=== PATIENT | female | born 1945 | race American Indian/Alaskan Native ===

== ENCOUNTER 2016-09-24 14:27 | Emergency (ER) | payer MEDICARE ==
--- NOTE | 2016-09-24 15:32 | Emergency Department Report ---
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 Patient stated history of seizure for which she takes Dilantin and Keppra. She started having seizures in 1997 after having meningiomas removed. Patient states she has been compliant with her medication but she usually has one seizure every 3 months or so. Patient denies any pain, shortness of breath, nausea, vomiting, fever, neck pain. Patient states her seizure lasted about 30 seconds, and only involved her right side according to witnesses. No loss of bowel or urine during this seizure. <PATRICIA YOUSSEF - Last Filed: 09/24/16 16:13> <PABLO CASTRO - Last Filed: 09/24/16 21:03> - General Chief Complaint: Seizure Time Seen by Provider: 09/24/16 15:22 ED Past Medical Hx - Past Medical History Hx Hypertension: Yes Hx Heart Attack/AMI: No Hx Congestive Heart Failure: Yes Hx Diabetes: No Hx Deep Vein Thrombosis: No Hx Pulmonary Embolism: Yes (2011) Hx Sickle Cell Disease: No Hx Arthritis: Yes Hx Seizures: Yes Hx Asthma: No Hx COPD: Yes (Home O2) Hx Tuberculosis: No Hx Dementia: No Hx HIV: No Additional medical history: Beneign Brain Tumor - Surgical History Hx Coronary Stent: Yes Hx Open Heart Surgery: No Hx Pacemaker: No Hx Internal Defibrillator: No Hx Cholecystectomy: Yes Hx Appendectomy: No Hx Breast Surgery: No Additional Surgical History: Brain Surgery x 2, Hysterectomy, Gallbadder, Hernia , Bowl Obstruction x 3, Back surgery. right hip surgery - Family History Family history: hypertension - Social History Smoking Status: Former Smoker Substance Use Type: None <PATRICIA YOUSSEF - Last Filed: 09/24/16 16:13> <PABLO CASTRO - Last Filed: 09/24/16 21:03> - Medications Home Medications: Home Medications Medication Instructions Recorded Confirmed Last Taken Type levETIRAcetam 750 mg PO BID 05/25/14 09/24/16 09/24/16 History Escitalopram [Lexapro] 20 mg PO DAILY tablet 05/27/14 09/24/16 09/24/16 Rx Fluticasone [Flonase] 2 spray NS QDAY 08/12/14 09/24/16 05/13/16 History Pantoprazole [Protonix TAB] 40 mg PO QDAY 08/12/14 09/24/16 09/24/16 History Rosuvastatin (Nf) [Crestor] 20 mg PO QHS 08/12/14 09/24/16 09/24/16 History Phenytoin [Dilantin] 300 mg PO QHS 09/08/14 09/24/16 09/23/16 History Amlodipine Besylate [Norvasc] 10 mg PO DAILY 30 Days 11/19/14 09/24/16 09/24/16 Rx Carvedilol [Coreg] 12.5 mg PO BID #60 tablet 11/19/14 09/24/16 09/24/16 Rx Clopidogrel [Plavix] 75 mg PO QDAY #30 tablet 11/19/14 09/24/16 09/24/16 Rx ISOSORBIDE MONOnitrate [Imdur ER] 30 mg PO QDAY #30 tablet 11/19/14 09/24/16 Rx Lisinopril [Zestril TAB] 40 mg PO DAILY #30 tablet 11/19/14 09/24/16 09/24/16 Rx Ranolazine ER [Ranexa ER] 1,000 mg PO BID 60 Days 11/19/14 09/24/16 09/24/16 Rx Acetaminophen [Acetaminophen TAB] 650 mg PO Q4H PRN #30 tablet 09/08/1505/11/16 Rx Aspirin [Aspirin BABY CHEW TAB] 81 mg PO QDAY #30 tab.chew 05/17/16 09/24/16 Rx ALBUTEROL Inhaler [Proair] 2 puff IH QID PRN 09/24/16 09/24/16 Unknown History Budesoni/Formotero 160-4.5(Nf) 2 puff IH BID 09/24/16 09/24/16 Unknown History [Symbicort 160-4.5 (Nf)] Nitroglycerin [Nitrostat] 0.4 mg SL Q5M 09/24/16 09/24/16 Unknown History ED Review of Systems ROS: Stated complaint: SEIZURE Other details as noted in HPI Comment: All other systems reviewed and negative Constitutional: no symptoms reported Neurological: other (seizures) <PATRICIA YOUSSEF - Last Filed: 09/24/16 16:13> ROS: Stated complaint: SEIZURE Other details as noted in HPI <PABLO CASTRO P - Last Filed: 09/24/16 21:03> Physical Exam - Physical Exam Vital Signs: Vital Signs 09/24/16 14:44 Pulse Rate 86 Respiratory 16 Rate Blood Pressure 164/96 O2 Sat by Pulse 99 Oximetry Physical Exam: Gen. alert and oriented 3 in no distress Head atraumatic normocephalic Eyes PERR LA EOMI Chest regular rate and rhythm normal S1-S2 lungs clear bilaterally Abdomen soft nondistended Back no point tenderness paravertebral tenderness Neuro no focal deficit. Psych normal mood. <PATRICIA YOUSSEF - Last Filed: 09/24/16 16:13> - Physical Exam Vital Signs: Vital Signs 09/24/16 09/24/16 09/24/16 14:44 15:20 15:33 Temperature 97.7 F Pulse Rate 86 65 Respiratory 16 15 Rate Blood Pressure 164/96 Blood Pressure 156/76 [Left] O2 Sat by Pulse 99 100 100 Oximetry <PABLO CASTRO P - Last Filed: 09/24/16 21:03> ED Course Vital Signs 09/24/16 14:44 Pulse Rate 86 Respiratory 16 Rate Blood Pressure 164/96 O2 Sat by Pulse 99 Oximetry <PATRICIA YOUSSEF - Last Filed: 09/24/16 16:13> Vital Signs 09/24/16 09/24/16 09/24/16 14:44 15:20 15:33 Temperature 97.7 F Pulse Rate 86 65 Respiratory 16 15 Rate Blood Pressure 164/96 Blood Pressure 156/76 [Left] O2 Sat by Pulse 99 100 100 Oximetry <PABLO CASTRO P - Last Filed: 09/24/16 21:03> ED Medical Decision Making - Lab Data Result diagrams: 09/24/16 15:42 <PATRICIA YOUSSEF - Last Filed: 09/24/16 16:13> - Lab Data Result diagrams: 09/24/16 15:42 09/24/16 15:42 <PABLO CASTRO P - Last Filed: 09/24/16 21:03> Critical care attestation.: If time is entered above; I have spent that time in minutes in the direct care of this critically ill patient, excluding procedure time. <PATRICIA YOUSSEF - Last Filed: 09/24/16 16:13> Critical care attestation.: If time is entered above; I have spent that time in minutes in the direct care of this critically ill patient, excluding procedure time. <PABLO CASTRO - Last Filed: 09/24/16 21:03> ED Disposition <PATRICIA YOUSSEF - Last Filed: 09/24/16 16:13> Is pt being admited?: No Does the pt Need Aspirin: No Time of Disposition: 21:03 <PABLO CASTRO P - Last Filed: 09/24/16 21:03> Clinical Impression: Seizure Disposition: - TO HOME OR SELFCARE Condition: Stable Instructions: Epilepsy (ED) Referrals: PRIMARY CARE,MD [Primary Care Provider] - 3-5 Days
[2016-09-24] MEDS: NACL 0.9% 1000 ML 1,000 ML IV ONE (16:00)
[2016-09-24 16:12] LABS: Basophils % (Auto) 0.7 % (0.0-1.8); Eosinophils % (Auto) 2.5 % (0.0-4.3); Hematocrit 34.6 % (30.3-42.9); Hemoglobin 11.6 gm/dl (10.1-14.3); Mean Corpuscular HGB Conc 34 % (30-34); Mean Corpuscular Hemoglobin 31 pg (28-32); Mean Corpuscular Volume 94 fl (79-97); Platelet Count 287 K/mm3 (140-440); Red Blood Count 3.69 M/mm3 (3.65-5.03); White Blood Count 5.4 K/mm3 (4.5-11.0)
[2016-09-24 16:55] LABS: Bilirubin,Urine NEG (Negative); Blood,Urine SM (Negative); Ketones,Urine NEG (Negative); Leukocyte Esterase,Urine TR (Negative); Mucus,Urine FEW /HPF; Nitrite,Urine NEG (Negative); Protein,Urine <15 mg/dL mg/dL (Negative); Urobilinogen,Urine < 2.0 mg/dL (<2.0); WBC,Urine < 1.0 /HPF (0.0-6.0)
[2016-09-24] MEDS: KEPPRA 500 MG in D5W 100 ML IV ONE (17:45)
[2016-09-24 18:50] LABS: Alanine Aminotransferase 19 units/L (7-56); Albumin 3.9 g/dL (3.9-5); Albumin/Globulin Ratio 1.5 %; Alkaline Phosphatase 92 units/L (35-129); Anion Gap 17 mmol/L; Blood Urea Nitrogen 9 mg/dL (7-17); Calcium 9.5 mg/dL (8.4-10.2); Carbon Dioxide 31 mmol/L (22-30); Glucose 85 mg/dL (65-100); Potassium 4.2 mmol/L (3.6-5.0); Sodium 140 mmol/L (137-145); Total Protein 6.5 g/dL (6.3-8.2)
[2016-09-24 21:25] VITALS: BP 122/71
== END 2016-09-24 21:00 | disposition home or self-care (01) ==
LOC: ED 14:27
DX: R56.9 Unspecified convulsions (principal); I10 Essential (primary) hypertension; J44.9 Chronic obstructive pulmonary disease, unspecified; Z87.891 Personal history of nicotine dependence
CPT/HCPCS: 36415; 80053; 80185; 81001; 85025; 96361; 96365; 99284; J1953; J7030

== ENCOUNTER 2016-09-24 21:29 | Inpatient (IN) | payer MEDICARE ==
[2016-09-24] MEDS ORDERED: NITROSTAT SL ONE (21:46)
[2016-09-24] MEDS ORDERED: SUBLIMAZE IV ONE (21:46)
[2016-09-24] MEDS ORDERED: ZOFRAN ONE (22:02)
[2016-09-24 22:34] LABS: White Blood Count 6.3 K/mm3 (4.5-11.0)
[2016-09-24 22:35] LABS: Basophils % (Auto) 0.7 % (0.0-1.8); Eosinophils % (Auto) 2.5 % (0.0-4.3); Hematocrit 35.3 % (30.3-42.9); Hemoglobin 11.5 gm/dl (10.1-14.3); Mean Corpuscular HGB Conc 33 % (30-34); Mean Corpuscular Hemoglobin 31 pg (28-32); Mean Corpuscular Volume 94 fl (79-97); Platelet Count 304 K/mm3 (140-440); Red Blood Count 3.75 M/mm3 (3.65-5.03); Red Cell Distribution Width 14.1 % (13.2-15.2)
--- NOTE | 2016-09-24 22:43 | Emergency Department Report ---
HPI - General Chief Complaint: Chest Pain Time Seen by Provider: 09/24/16 21:44 - HPI HPI: The patient is a 71-year-old female who presents for evaluation of chest pain. The patient reports chest pain for the past 30 minutes to 1 hour, since discharge from evaluation earlier today for seizure. She states that her chest has been constant since onset, left-sided in location, pressure-like and tightness in quality, 7/10 in severity. She also reports associated dyspnea. She denies fever, shortness of the chest, cough, hemoptysis, unilateral leg swelling, recent immobilization, history of DVT or PE, recent cancer. ED Past Medical Hx - Past Medical History Previous Medical History?: Yes Hx Hypertension: Yes Hx Heart Attack/AMI: No Hx Congestive Heart Failure: Yes Hx Diabetes: No Hx Deep Vein Thrombosis: No Hx Pulmonary Embolism: Yes (2011) Hx Sickle Cell Disease: No Hx Arthritis: Yes Hx Seizures: Yes Hx Asthma: No Hx COPD: Yes (Home O2) Hx Tuberculosis: No Hx Dementia: No Hx HIV: No Additional medical history: Beneign Brain Tumor - Surgical History Past Surgical History?: Yes Hx Coronary Stent: Yes Hx Open Heart Surgery: No Hx Pacemaker: No Hx Internal Defibrillator: No Hx Cholecystectomy: Yes Hx Appendectomy: No Hx Breast Surgery: No Additional Surgical History: Brain Surgery x 2, Hysterectomy, Gallbadder, Hernia , Bowl Obstruction x 3, Back surgery. right hip surgery - Social History Smoking Status: Never Smoker Substance Use Type: None - Medications Home Medications: Home Medications Medication Instructions Recorded Confirmed Last Taken Type levETIRAcetam 750 mg PO BID 05/25/14 09/24/16 09/24/16 History Escitalopram [Lexapro] 20 mg PO DAILY tablet 05/27/14 09/24/16 09/24/16 Rx Fluticasone [Flonase] 2 spray NS QDAY 08/12/14 09/24/16 05/13/16 History Pantoprazole [Protonix TAB] 40 mg PO QDAY 08/12/14 09/24/16 09/24/16 History Rosuvastatin (Nf) [Crestor] 20 mg PO QHS 08/12/14 09/24/16 09/24/16 History Phenytoin [Dilantin] 300 mg PO QHS 09/08/14 09/24/16 09/23/16 History Amlodipine Besylate [Norvasc] 10 mg PO DAILY 30 Days 11/19/14 09/24/16 09/24/16 Rx Carvedilol [Coreg] 12.5 mg PO BID #60 tablet 11/19/14 09/24/16 09/24/16 Rx Clopidogrel [Plavix] 75 mg PO QDAY #30 tablet 11/19/14 09/24/16 09/24/16 Rx ISOSORBIDE MONOnitrate [Imdur ER] 30 mg PO QDAY #30 tablet 11/19/14 09/24/16 Rx Lisinopril [Zestril TAB] 40 mg PO DAILY #30 tablet 11/19/14 09/24/16 09/24/16 Rx Ranolazine ER [Ranexa ER] 1,000 mg PO BID 60 Days 11/19/14 09/24/16 09/24/16 Rx Acetaminophen [Acetaminophen TAB] 650 mg PO Q4H PRN #30 tablet 09/08/1505/11/16 Rx Aspirin [Aspirin BABY CHEW TAB] 81 mg PO QDAY #30 tab.chew 05/17/16 09/24/16 Rx ALBUTEROL Inhaler [Proair] 2 puff IH QID PRN 09/24/16 09/24/16 Unknown History Budesoni/Formotero 160-4.5(Nf) 2 puff IH BID 09/24/16 09/24/16 Unknown History [Symbicort 160-4.5 (Nf)] Nitroglycerin [Nitrostat] 0.4 mg SL Q5M 09/24/16 09/24/16 Unknown History ED Review of Systems ROS: Stated complaint: CP Other details as noted in HPI Constitutional: denies: fever ENT: denies: throat or neck pain Respiratory: denies: cough, shortness of breath Cardiovascular: reports chest pain Endocrine: denies unexplained weight loss or gain Gastrointestinal: denies: abdominal pain, nausea Genitourinary: denies: dysuria Musculoskeletal: denies: leg swelling Skin: denies: rash Neurological: denies: headache Hematological/Lymphatic: denies: easy bleeding or easy bruising Psych: denies sadness or hopelessness Physical Exam - Physical Exam Vital Signs: Vital Signs 09/24/16 21:30 Temperature 98.6 F Pulse Rate 84 Respiratory 20 Rate Blood Pressure 191/89 O2 Sat by Pulse 100 Oximetry Physical Exam: General: well-nourished, well-developed, no acute distress Head: Normocephalic, atraumatic Eyes: normal sclera ENT: Mucous membranes are pink and moist Neck: trachea midline, neck supple, No neck stiffness, no cervical adenopathy Respiratory: Breath sounds equal bilaterally, no wheezing, rales, or rhonchi Cardio: S1 and S2 present, no murmurs, rubs, gallops, capillary refill is brisk Abdomen: Normoactive bowel sounds, soft abdomen, no rigidity, no guarding or rebound tenderness Chest WALL/Back: left sided tenderness to palpation of the chest wall present, no CVA tenderness with percussion Musc: No pitting edema Skin: No rash Neuro: no facial drooping, normal speech Psych: Normal affect ED Course Vital Signs 09/24/16 21:30 Temperature 98.6 F Pulse Rate 84 Respiratory 20 Rate Blood Pressure 191/89 O2 Sat by Pulse 100 Oximetry ED Medical Decision Making - Lab Data Result diagrams: 09/24/16 22:12 09/24/16 22:12 - Medical Decision Making The patient was seen and examined by myself. The patient is placed on a supervisor customer records division and continuous pulse ox. On initial evaluation, the patient was found to be in no distress. The patient is given a nitroglycerin tablet and IV fentanyl for pain. Labs and imaging are obtained. Chest x-ray is negative for pneumothorax, focal consolidation, pulmonary vascular congestion, pleural effusion, or other obvious acute cardiopulmonary disease process. Lab results were non-revealing including negative troponin, WBC, hemoglobin, hematocrit, electrolytes, renal function. The patient was reevaluated and reported that their symptoms were improved. As the patient has chest pain and risk factors for development of acute coronary event, the patient will be admitted for close cardiopulmonary monitoring, serial troponins, and evaluation by cardiology. The physician on-call was contacted. They presented to the emergency department and evaluated the patient. They agreed to admit the patient. The ED admit order was placed. The patient was admitted in guarded condition. Critical care attestation.: If time is entered above; I have spent that time in minutes in the direct care of this critically ill patient, excluding procedure time. ED Disposition Clinical Impression: Acute chest pain Disposition: [id number] OP ADMIT IP TO THIS HOSP Is pt being admited?: No Does the pt Need Aspirin: No Condition: Stable Time of Disposition: 22:42
[2016-09-24] MEDS ORDERED: BENADRYL ONE (22:48)
[2016-09-24 22:54] LABS: Alanine Aminotransferase 19 units/L (7-56); Albumin/Globulin Ratio 1.7 %; Alkaline Phosphatase 93 units/L (35-129); Anion Gap 18 mmol/L; Blood Urea Nitrogen 7 mg/dL (7-17); Calcium 9.3 mg/dL (8.4-10.2); Carbon Dioxide 29 mmol/L (22-30); Chloride 98.2 mmol/L (98-107); Glucose 109 mg/dL (65-100); Lipase 17 units/L (13-60); Sodium 141 mmol/L (137-145); Total Protein 6.4 g/dL (6.3-8.2)
[2016-09-24] MEDS ORDERED: BENADRYL IV ONE (22:59)
--- NOTE | 2016-09-24 23:34 | History and Physical Report ---
History of Present Illness Chief complaint: I had a seizure and i have pain in my chest History of present illness: 71 YO Female with HTN, CHF, PE, OA, COPD-oxygen Dependent, Seizure disorder, CAD presents to ED for evaluation. Pt states that she experienced witnissed seizure today, and also experienced pain in her chest today. Pt states that the pain is 4-7/10, constant, localized to the left-side of the chest, crushing in nature, associated with dyspnea, no exacerbating or alleviating factors. Pt denies fever, chills, Palpitations, NVD, Syncope, hemoptysis, or recent ill contacts. Past History Past Medical History: arthritis, CAD, COPD, heart failure, hypertension, pulmonary embolism, seizures Past Surgical History: cholecystectomy, hysterectomy ( Brain Surgery x 2, Hysterectomy, Gallbadder, Hernia, Bowl Obstruction x 3, Back surgery. right hip surgery) Social history: single. denies: smoking, alcohol abuse, prescription drug abuse Family history: diabetes, hypertension Medications and Allergies Allergies Allergy/AdvReac Type Severity Reaction Status Date / Time morphine Allergy Severe hallucinati Verified 01/06/15 13:14 on Home Medications Medication Instructions Recorded Confirmed Last Taken Type levETIRAcetam 750 mg PO BID 05/25/14 09/25/16 09/24/16 History Escitalopram [Lexapro] 20 mg PO DAILY tablet 05/27/14 09/25/16 09/24/16 Rx Fluticasone [Flonase] 2 spray NS QDAY 08/12/14 09/25/16 05/13/16 History Pantoprazole [Protonix TAB] 40 mg PO QDAY 08/12/14 09/25/16 09/24/16 History Rosuvastatin (Nf) [Crestor] 20 mg PO QHS 08/12/14 09/25/16 09/24/16 History Phenytoin [Dilantin] 300 mg PO QHS 09/08/14 09/25/16 09/23/16 History Amlodipine Besylate [Norvasc] 10 mg PO DAILY 30 Days 11/19/14 09/25/16 09/24/16 Rx Carvedilol [Coreg] 12.5 mg PO BID #60 tablet 11/19/14 09/25/16 09/24/16 Rx Clopidogrel [Plavix] 75 mg PO QDAY #30 tablet 11/19/14 09/25/16 09/24/16 Rx ISOSORBIDE MONOnitrate [Imdur ER] 30 mg PO QDAY #30 tablet 11/19/14 09/25/16 Rx Lisinopril [Zestril TAB] 40 mg PO DAILY #30 tablet 11/19/14 09/25/16 09/24/16 Rx Acetaminophen [Acetaminophen TAB] 650 mg PO Q4H PRN #30 tablet 09/08/1505/11/16 Rx Aspirin [Aspirin BABY CHEW TAB] 81 mg PO QDAY #30 tab.chew 05/17/16 09/25/16 Rx ALBUTEROL Inhaler [Proair] 2 puff IH QID PRN 09/24/16 09/25/16 Unknown History Budesoni/Formotero 160-4.5(Nf) 2 puff IH BID 09/24/16 09/25/16 Unknown History [Symbicort 160-4.5 (Nf)] Nitroglycerin [Nitrostat] 0.4 mg SL Q5M 09/24/16 09/25/16 Unknown History Review of Systems All systems: negative Constitutional: no fever Ears, nose, mouth and throat: no ear pain Breasts: no swelling Cardiovascular: chest pain, shortness of breath Respiratory: no cough Gastrointestinal: no abdominal pain Genitourinary Female: no flank pain Rectal: no pain Musculoskeletal: no neck stiffness Integumentary: no rash Neurological: no head injury Psychiatric: no anxiety Endocrine: no heat intolerance Hematologic/Lymphatic: no easy bruising Allergic/Immunologic: no urticaria Exam - Constitutional Vitals: Temp Pulse Resp BP Pulse Ox 98.6 F 84 20 191/89 100 09/24/16 21:30 09/24/16 21:30 09/24/16 21:30 09/24/16 21:30 09/24/16 21:30 General appearance: Present: mild distress, obese - EENT Eyes: Present: PERRL ENT: hearing intact, clear oral mucosa - Neck Neck: Present: supple, normal ROM - Respiratory Respiratory effort: normal Respiratory: bilateral: diminished - Cardiovascular Heart Sounds: Present: S1 & S2. Absent: rub, click - Extremities Extremities: pulses symmetrical, No edema Peripheral Pulses: within normal limits - Abdominal General gastrointestinal: Present: soft, non-tender, non-distended, normal bowel sounds Female genitourinary: Present: normal - Integumentary Integumentary: Present: clear, warm, dry - Musculoskeletal Musculoskeletal: gait normal, strength equal bilaterally - Psychiatric Psychiatric: appropriate mood/affect, intact judgment & insight - Neurologic Neurologic: CNII-XII intact, moves all extremities Results - Labs CBC & Chem 7: 09/24/16 22:12 09/24/16 22:12 Labs: Abnormal lab results 09/24/16 09/24/16 Range/Units 22:12 22:12 Lymph % (Auto) 40.4 H (13.4-35.0) % Meagher % (Auto) 8.5 H (0.0-7.3) % Creatinine 0.5 L (0.7-1.2) mg/dL Glucose 109 H (65-100) mg/dL Assessment and Plan - Patient Problems (1) ACS (acute coronary syndrome) Current Visit: Yes Status: Acute Plan to address problem: Admit to telemetry, cardiology consulted, serial cardiac enzymes, ekg, telemetry , supportive care, Echo (2) Status epilepticus Current Visit: Yes Status: Acute Plan to address problem: dilantin level, keppra level, resume home medication (3) CHF (congestive heart failure) Current Visit: Yes Status: Acute Qualifiers: Congestive heart failure type: systolic Congestive heart failure chronicity : acute on chronic Qualified Code(s): I50.23 - Acute on chronic systolic ( congestive) heart failure Plan to address problem: Telemetry monitoring, fluid restriction, afterload reduction, monitor uop q shift, (4) COPD (chronic obstructive pulmonary disease) Current Visit: Yes Status: Chronic Qualifiers: COPD type: C Chronic bronchitis type: C Emphysema type: E Plan to address problem: supplemental oxygen, nebs, NIPPV as clinically indicated. (5) DVT prophylaxis Current Visit: Yes Status: Acute
[2016-09-24] MEDS ORDERED: NITROSTAT SL PRN (23:45)
[2016-09-24] MEDS ORDERED: SODIUM CHLORIDE FLUSH SYRINGE 10 ML IV PRN (23:47)
[2016-09-24] MEDS ORDERED: MILK OF MAGNESIA PO PRN (23:47)
[2016-09-24] MEDS ORDERED: DULCOLAX PR PRN (23:47)
[2016-09-24] MEDS ORDERED: TYLENOL PO PRN ×2 (23:47→23:52)
[2016-09-24] MEDS ORDERED: PROVENTIL IH PRN (23:47)
[2016-09-24] MEDS ORDERED: PROAIR IH PRN (23:52)
--- NOTE | 2016-09-25 07:13 | XRay Report ---
AP CHEST: HISTORY: Seizure There is poor inspiration. AP view of the chest demonstrates a normal mediastinal and cardiac contour with clear lungs and normal bony and soft tissue structures. IMPRESSION: No acute process identified.
[2016-09-25] MEDS: ZOFRAN IV PRN ×2 (07:49→21:48)
[2016-09-25] MEDS: BROVANA NEBU IH SCH ×2 (08:33→20:12)
[2016-09-25] MEDS: PULMICORT IH SCH ×2 (08:33→20:12)
[2016-09-25] MEDS: FLONASE NS SCH (09:09)
[2016-09-25] MEDS: BABY ASPIRIN PO SCH (09:44)
[2016-09-25] MEDS: IMDUR PO SCH (09:45)
[2016-09-25] MEDS: LEXAPRO PO SCH (09:46)
[2016-09-25] MEDS: KEPPRA PO SCH ×2 (09:46→21:52)
[2016-09-25] MEDS: NORVASC PO SCH (09:47)
[2016-09-25] MEDS: PROTONIX PO SCH (09:47)
[2016-09-25] MEDS: ZESTRIL PO SCH (09:48)
[2016-09-25] MEDS: RANEXA ER PO SCH ×2 (09:48→21:52)
[2016-09-25] MEDS: PLAVIX PO SCH (09:48)
[2016-09-25] MEDS ORDERED: COREG PO SCH (10:00)
[2016-09-25] MEDS ORDERED: NON-FORMULARY (Budesoni/Formotero 160-4.5(Nf) 2 PUFF) IH SCH (10:00)
[2016-09-25] MEDS ORDERED: APRESOLINE IV PRN (10:30)
--- NOTE | 2016-09-25 13:33 | Consultation ---
History of Present Illness Consult date: 09/25/16 Past History Past Medical History: arthritis, CAD, COPD, heart failure, hypertension, pulmonary embolism, seizures Past Surgical History: cholecystectomy, hysterectomy ( Brain Surgery x 2, Hysterectomy, Gallbadder, Hernia, Bowl Obstruction x 3, Back surgery. right hip surgery) Social history: single. denies: smoking, alcohol abuse, prescription drug abuse Family history: diabetes, hypertension Medications and Allergies Allergies Allergy/AdvReac Type Severity Reaction Status Date / Time morphine Allergy Severe hallucinati Verified 01/06/15 13:14 on Home Medications Medication Instructions Recorded Confirmed Last Taken Type levETIRAcetam 750 mg PO BID 05/25/14 09/25/16 09/24/16 History Escitalopram [Lexapro] 20 mg PO DAILY tablet 05/27/14 09/25/16 09/24/16 Rx Fluticasone [Flonase] 2 spray NS QDAY 08/12/14 09/25/16 05/13/16 History Pantoprazole [Protonix TAB] 40 mg PO QDAY 08/12/14 09/25/16 09/24/16 History Rosuvastatin (Nf) [Crestor] 20 mg PO QHS 08/12/14 09/25/16 09/24/16 History Phenytoin [Dilantin] 300 mg PO QHS 09/08/14 09/25/16 09/23/16 History Amlodipine Besylate [Norvasc] 10 mg PO DAILY 30 Days 11/19/14 09/25/16 09/24/16 Rx Carvedilol [Coreg] 12.5 mg PO BID #60 tablet 11/19/14 09/25/16 09/24/16 Rx Clopidogrel [Plavix] 75 mg PO QDAY #30 tablet 11/19/14 09/25/16 09/24/16 Rx ISOSORBIDE MONOnitrate [Imdur ER] 30 mg PO QDAY #30 tablet 11/19/14 09/25/16 Rx Lisinopril [Zestril TAB] 40 mg PO DAILY #30 tablet 11/19/14 09/25/16 09/24/16 Rx Acetaminophen [Acetaminophen TAB] 650 mg PO Q4H PRN #30 tablet 09/08/1505/11/16 Rx Aspirin [Aspirin BABY CHEW TAB] 81 mg PO QDAY #30 tab.chew 05/17/16 09/25/16 Rx ALBUTEROL Inhaler [Proair] 2 puff IH QID PRN 09/24/16 09/25/16 Unknown History Budesoni/Formotero 160-4.5(Nf) 2 puff IH BID 09/24/16 09/25/16 Unknown History [Symbicort 160-4.5 (Nf)] Nitroglycerin [Nitrostat] 0.4 mg SL Q5M 09/24/16 09/25/16 Unknown History Active Meds: Active Medications Acetaminophen (Tylenol) 650 mg PO Q4H PRN PRN Reason: Pain MILD(1-3)/Fever >100.5/FERRER Albuterol (Proventil) 2.5 mg IH Q4HRT PRN PRN Reason: Shortness Of Breath Amlodipine Besylate (Norvasc) 10 mg PO DAILY [facility] Last Admin: 09/25/16 09:47 Dose: 10 mg Arformoterol Tartrate (Brovana Nebu) 15 mcg IH Q12HRT [facility] Last Admin: 09/25/16 08:33 Dose: 15 mcg Aspirin (Baby Aspirin) 81 mg PO QDAY [facility] Last Admin: 09/25/16 09:44 Dose: 81 mg Atorvastatin Calcium (Lipitor) 40 mg PO QHS [facility] Bisacodyl (Dulcolax) 10 mg MS QDAY PRN PRN Reason: Constipation unrelieved by MOM Budesonide (Pulmicort) 0.5 mg IH Q12HRT [facility] Last Admin: 09/25/16 08:33 Dose: 0.5 mg Carvedilol (Coreg) 12.5 mg PO BID [facility] Last Admin: 09/25/16 09:45 Dose: 12.5 mg Clopidogrel Bisulfate (Plavix) 75 mg PO QDAY [facility] Last Admin: 09/25/16 09:48 Dose: Not Given Escitalopram Oxalate (Lexapro) 20 mg PO DAILY [facility] Last Admin: 09/25/16 09:46 Dose: 20 mg Fluticasone Propionate (Flonase) 100 mcg NS QDAY [facility] Hydralazine HCl (Apresoline) 25 mg PO Q8HR [facility] Hydralazine HCl (Apresoline) 10 mg IV Q4H PRN PRN Reason: Hypertension Isosorbide Mononitrate (Imdur) 30 mg PO QDAY [facility] Last Admin: 09/25/16 09:45 Dose: 30 mg Levetiracetam (Keppra) 750 mg PO BID [facility] Last Admin: 09/25/16 09:46 Dose: 750 mg Lisinopril (Zestril) 40 mg PO DAILY [facility] Last Admin: 09/25/16 09:48 Dose: 40 mg Magnesium Hydroxide (Milk Of Magnesia) 30 ml PO Q4H PRN PRN Reason: Constipation Nitroglycerin (Nitrostat) 0.4 mg SL Q5M PRN PRN Reason: Chest Pain Last Admin: 09/25/16 07:46 Dose: 0.4 mg Ondansetron HCl (Zofran) 4 mg IV Q8H PRN PRN Reason: N/V unrelieved by [facility] Last Admin: 09/25/16 07:49 Dose: 4 mg Pantoprazole Sodium (Protonix) 40 mg PO QDAY [facility] Last Admin: 09/25/16 09:47 Dose: 40 mg Phenytoin (Dilantin) 300 mg PO QHS [facility] Ranolazine (Ranexa Er) 1,000 mg PO BID [facility] Last Admin: 09/25/16 09:48 Dose: 1,000 mg Sodium Chloride (Sodium Chloride Flush Syringe 10 Ml) 10 ml IV PRN PRN PRN Reason: LINE FLUSH Physical Examination Vital Signs Pulse Ox 92 09/24/16 21:28 Results 09/24/16 22:12 09/24/16 22:12 Assessment and Plan Detailed Cardiology consult dictaed.
[2016-09-25] MEDS: APRESOLINE PO SCH ×2 (14:39→21:51)
--- NOTE | 2016-09-25 16:49 | Progress Note ---
Assessment and Plan Assessment and plan: --atypical chest pain; rule out acute coronary syndrome Serial cardiac enzymes, echocardiogram, follow cardiology evaluation and recommendations Aspirin beta blockers derrick inhibitors and nitrates and statins, possible stress test to rule out reversible ischemia --History of seizure disorder Probably secondary to noncompliance, continue seizure precautions, Dilantin and Keppra --Acute on chronic systolic Congestive heart failure Continue anti-failure medications, cardiology following Low salt diet and fluid restriction, ejection fraction 35-40% --History of COPD;; Oxygen, nebulizers as needed, BiPAP as needed --History of depression; continue antidepression medications --Dyslipidemia; stable on lipid-lowering medications --DVT prophylaxis; Lovenox --Full CODE STATUS Closely monitor the patient and adjust management as needed Possible discharge in 1-2 days if stable History Interval history: Patient seen and evaluated medical records reviewed Denies any chest pain or shortness No new episodes of seizures since admission Alert awake oriented 3 not in acute distress vital signs reviewed Cardiology evaluation pending Hospitalist Physical - Constitutional Vitals: Temp Pulse Resp BP Pulse Ox 98.8 F 73 20 152/72 97 09/25/16 15:13 09/25/16 15:13 09/25/16 15:13 09/25/16 15:13 09/25/16 15:13 General appearance: Present: no acute distress, obese - EENT Eyes: Present: PERRL, EOM intact - Neck Neck: Present: supple, normal ROM - Respiratory Respiratory effort: normal Respiratory: bilateral: diminished, negative: rales, rhonchi, wheezing - Cardiovascular Rhythm: regular Heart Sounds: Present: S1 & S2 - Extremities Extremities: no ischemia, pulses intact, pulses symmetrical - Abdominal General gastrointestinal: soft, non-tender, non-distended, normal bowel sounds - Integumentary Integumentary: Present: clear, warm - Psychiatric Psychiatric: appropriate mood/affect, cooperative - Neurologic Neurologic: CNII-XII intact, moves all extremities Results - Labs CBC & Chem 7: 09/24/16 22:12 09/24/16 22:12 Labs: Laboratory Last Values WBC 6.3 K/mm3 (4.5-11.0) 09/24/16 22:12 RBC 3.75 M/mm3 (3.65-5.03) 09/24/16 22:12 Hgb 11.5 gm/dl (10.1-14.3) 09/24/16 22:12 Hct 35.3 % (30.3-42.9) 09/24/16 22:12 MCV 94 fl (79-97) 09/24/16 22:12 MCH 31 pg (28-32) 09/24/16 22:12 MCHC 33 % (30-34) 09/24/16 22:12 RDW 14.1 % (13.2-15.2) 09/24/16 22:12 Plt Count 304 K/mm3 (140-440) 09/24/16 22:12 Lymph % (Auto) 40.4 % (13.4-35.0) H 09/24/16 22:12 Emanuel % (Auto) 8.5 % (0.0-7.3) H 09/24/16 22:12 Eos % (Auto) 2.5 % (0.0-4.3) 09/24/16 22:12 Baso % (Auto) 0.7 % (0.0-1.8) 09/24/16 22:12 Lymph # 2.5 K/mm3 (1.2-5.4) 09/24/16 22:12 Emanuel # 0.5 K/mm3 (0.0-0.8) 09/24/16 22:12 Eos # 0.2 K/mm3 (0.0-0.4) 09/24/16 22:12 Baso # 0.0 K/mm3 (0.0-0.1) 09/24/16 22:12 Seg Neutrophils % 47.9 % (40.0-70.0) 09/24/16 22:12 Seg Neutrophils # 3.0 K/mm3 (1.8-7.7) 09/24/16 22:12 D-Dimer 294.06 ng/mlDDU (0-234) H 09/25/16 00:55 Sodium 141 mmol/L (137-145) 09/24/16 22:12 Potassium 4.0 mmol/L (3.6-5.0) 09/24/16 22:12 Chloride 98.2 mmol/L (98-107) 09/24/16 22:12 Carbon Dioxide 29 mmol/L (22-30) 09/24/16 22:12 Anion Gap 18 mmol/L 09/24/16 22:12 BUN 7 mg/dL (7-17) 09/24/16 22:12 Creatinine 0.5 mg/dL (0.7-1.2) L 09/24/16 22:12 Estimated GFR > 60 ml/min 09/24/16 22:12 BUN/Creatinine Ratio 14.00 % 09/24/16 22:12 Glucose 109 mg/dL (65-100) H 09/24/16 22:12 Calcium 9.3 mg/dL (8.4-10.2) 09/24/16 22:12 Total Bilirubin 0.40 mg/dL (0.1-1.2) 09/24/16 22:12 AST 20 units/L (5-40) 09/24/16 22:12 ALT 19 units/L (7-56) 09/24/16 22:12 Alkaline Phosphatase 93 units/L (35-129) 09/24/16 22:12 Troponin T < 0.010 ng/mL (0.00-0.029) 09/25/16 07:52 Total Protein 6.4 g/dL (6.3-8.2) 09/24/16 22:12 Albumin 4.0 g/dL (3.9-5) 09/24/16 22:12 Albumin/Globulin Ratio 1.7 % 09/24/16 22:12 Lipase 17 units/L (13-60) 09/24/16 22:12 Phenytoin 9.0 mg/L (10.0-20.0) L 09/25/16 00:55
[2016-09-25] MEDS: LOPRESSOR PO SCH (21:52)
[2016-09-25] MEDS ORDERED: DILANTIN PO SCH (22:00)
--- NOTE | 2016-09-26 05:35 | Consultation ---
CARDIOLOGY CONSULTATION AGE: 71 SEX: Female. REFERRING PHYSICIAN: Konrad Soliman MD HISTORY OF PRESENT ILLNESS: A 71-year-old obese (BMI of 34) pleasant -[place] woman with history of multiple medical problems as hypertension, hyperlipidemia, COPD, DJD, history of chronic recurrent seizures, known coronary artery disease, history of [employer] and bare metal stent placement in the right coronary artery (11/18/2014), was admitted with multiple episodes of seizures. There were brief and subsequently this subsided. The patient has been on Dilantin for the seizure on a chronic basis (she has had surgery for removal of meningioma twice). The patient also had left mammary chest pain, moderate chest tightness, not precipitated by exertion, breathing or food. It was not radiating. It lasted for several minutes. She did not have any shortness of breath, nausea, vomiting, dizziness, palpitations, presyncope or syncope. Serial cardiac enzymes are negative and myocardial infarction was ruled out. An echocardiogram was done today. PAST MEDICAL HISTORY: History of multiple medical problems as described above. She had a Rachel nuclear stress scan on 09/07/2015, which was normal. It revealed normal left ventricular function, history of bare metal stent in the critical stenosis in the mid right coronary artery (around 80%-90%) during October 2014 as described above. The patient also has history of GERD. PAST SURGICAL HISTORY: She has had multiple other surgical procedures including cholecystectomy, hysterectomy, brain surgery x 2 and also back surgery. SOCIAL HISTORY: Not a smoker, not an alcoholic. No history of drug abuse. FAMILY HISTORY: One of her brother has had myocardial infarction at age of 54. ALLERGIES: MORPHINE. SHE DEVELOPS HALLUCINATIONS. MEDICATIONS: Albuterol inhalation p.r.n., amlodipine 10 mg p.o. daily, Brovana every 12 hours, aspirin 81 mg p.o. daily, atorvastatin 40 mg p.o. daily, Pulmicort inhaler, carvedilol 12.5 mg p.o. b.i.d., Plavix 75 mg p.o. daily, hydralazine 10 mg IV q.4 hours p.r.n. for hypertension, Flomax, hydralazine 25 mg p.o. 3 times daily, Imdur 30 mg p.o. daily, lisinopril 40 mg p.o. daily, Protonix 40 mg p.o. daily, Dilantin 300 mg p.o. daily, Ranexa 1 gram p.o. b.i.d. REVIEW OF SYSTEMS: CARDIOVASCULAR: As described in the history. METABOLISM AND ENDOCRINOLOGY: As described in the history. PULMONARY: As described in the history. GASTROINTESTINAL SYSTEM: As described in the history. BONE AND JOINTS: As described in the history. NEUROPSYCHIATRIC: As described in the history. GENITOURINARY SYSTEM: As described in the history. Review of rest of the 10 systems is negative. PHYSICAL EXAMINATION: GENERAL: A 71-year-old obese, pleasant -[place] woman free from chest pain at this time. VITAL SIGNS: She is afebrile. Pulse 64 per minute regular, blood pressure 136/72 mmHg, respirations 18 per minute. NEUROLOGIC: She is alert and oriented x 3. HEENT: Negative. NECK: Supple, no JVD, no bruit, no thyromegaly. HEART: PMI could not be felt satisfactorily, no palpable thrills. Auscultation of the heart reveals S1, S2 heard. S2 is loud. S4 is heard, regular. No murmur or rub is appreciated. EXTREMITIES: Peripheral pulses felt. No edema. LUNGS: Bilateral air entry good and equal. No bronchial breathing, no wheezing. ABDOMEN: Soft, benign. No organomegaly. SKIN: Negative. BONE AND JOINTS: Negative. LABORATORY DATA: Cardiac enzymes as described in the history. CBC with diff, platelet count unremarkable. Chest x-ray one-view negative. Potassium, BUN and creatinine within normal limits. Glucose 109. D-dimer increased to 294. EKG, normal sinus rhythm, left axis deviation, voltage criteria for left ventricular hypertrophy and somewhat poor R-wave progression, nonspecific T-wave changes. IMPRESSION AND PLAN: 1. Left-sided chest pain, myocardial infarction ruled out. 2. Known coronary artery disease, history of percutaneous coronary angioplasty and bare metal stent placement in the right coronary artery during October 2014. 3. Multiple other medical problems including hypertension, hyperlipidemia. 4. Obesity. 5. Chronic obstructive pulmonary disease. 6. History of gastroesophageal reflux disease. 7. History of multiple surgical procedures in the past. 8. Normal Rachel nuclear stress scan on 09/07/2015. RECOMMENDATIONS: 1. To continue present management. 2. Management of seizures as you are doing. 3. We will follow up echocardiogram. Further recommendations will follow. JOB# [id number] JOJO/NEEL DELANEY
[2016-09-26] MEDS: APRESOLINE PO SCH ×2 (06:48→15:31)
[2016-09-26] MEDS: PULMICORT IH SCH (09:48)
[2016-09-26] MEDS: BROVANA NEBU IH SCH (09:48)
[2016-09-26] MEDS: KEPPRA PO SCH (11:07)
[2016-09-26] MEDS: LEXAPRO PO SCH (11:07)
[2016-09-26] MEDS: IMDUR PO SCH (11:07)
[2016-09-26] MEDS: PLAVIX PO SCH (11:08)
[2016-09-26] MEDS: PROTONIX PO SCH (11:08)
[2016-09-26] MEDS: BABY ASPIRIN PO SCH (11:08)
[2016-09-26] MEDS: NORVASC PO SCH (11:09)
[2016-09-26] MEDS: LOPRESSOR PO SCH (11:09)
[2016-09-26] MEDS: RANEXA ER PO SCH (11:16)
[2016-09-26] MEDS: ZESTRIL PO SCH (11:20)
--- NOTE | 2016-09-26 11:53 | Progress Note ---
Assessment and Plan Will add losartan 50 mg by mouth daily as patient has left ventricular systolic dysfunction wiyh LVEF arond 35-40%. To continue beta sy. Her chest pain is atypical and she had a negative Lexiscan nuclear stress scan during August 2015. She can be discharged home from a cardiac standpoint with current medications. Patient's colonoscopy was originally scheduled for 09/27/2016 and is postponed.(to be done by Raven Chatman) She'll Be followed up in our Office within 1 week. - Patient Problems (1) History of PTCA 1 Current Visit: Yes Status: Chronic (2) GERD (gastroesophageal reflux disease) Current Visit: Yes Status: Chronic Qualifiers: Esophagitis presence: E (3) Obesity (BMI 30.0-34.9) Current Visit: Yes Status: Chronic (4) Acute chest pain Current Visit: Yes Status: Resolved (5) CHF (congestive heart failure) Current Visit: Yes Status: Acute Qualifiers: Congestive heart failure type: systolic Congestive heart failure chronicity : acute on chronic Qualified Code(s): I50.23 - Acute on chronic systolic ( congestive) heart failure (6) COPD (chronic obstructive pulmonary disease) Current Visit: Yes Status: Chronic Qualifiers: COPD type: C Chronic bronchitis type: C Emphysema type: E (7) Abdominal pain Current Visit: No Status: Acute Qualifiers: Abdominal location: A (8) Elevated d-dimer Current Visit: No Status: Acute (9) Seizure Current Visit: No Status: Acute (10) Coronary artery disease Current Visit: No Status: Chronic Qualifiers: Coronary Disease-Associated Artery/Lesion type: [place] artery [place] vs. transplanted heart: N Associated angina: A (11) Hx pulmonary embolism Current Visit: No Status: Chronic (12) Hyperlipidemia Current Visit: No Status: Chronic Qualifiers: Hyperlipidemia type: H (13) Hypertension Current Visit: No Status: Chronic Qualifiers: Hypertension type: essential hypertension Qualified Code(s): I10 - Essential (primary) hypertension (14) Stented coronary artery Current Visit: No Status: Chronic Subjective Date of service: 09/26/16 Interval history: Patient has not had anymore chest pain. Her echocardiogram revealed moderate global left ventricular systolic dysfunction with LVEF around 35-40%, grade 1 diastolic left ventricular dysfunction and trace mitral regurgitation. There was no evidence of pericardial effusion. Objective Vital Signs Temp Pulse Pulse Resp Resp BP Pulse Ox 09/26/16 11:07 63 156/70 09/26/16 08:00 98.4 F 63 18 156/70 98 09/26/16 06:48 67 179/76 09/26/16 04:00 97.9 F 66 18 179/76 98 09/26/16 00:00 98.0 F 74 18 135/63 96 09/25/16 22:00 18 98 09/25/16 21:52 75 168/76 09/25/16 21:51 75 168/76 09/25/16 20:30 73 20 09/25/16 20:18 76 20 94 09/25/16 20:00 98.2 F 75 20 168/76 98 09/25/16 16:52 64 09/25/16 15:13 98.8 F 73 20 152/72 97 09/25/16 14:39 75 20 155/67 - Physical Examination General: Appears Well, No Apparent Distress HEENT: Positive: PERRL, Normocephaly, Mucus Membranes Moist Neck: Positive: neck supple, trachea midline. Negative: JVD/HJR Cardiac: Positive: Reg Rate and Rhythm, S4, Systolic Murmur (grade 2/6 ESM+), Gallop, Other (loud S2) Lungs: Positive: clear to auscultation, Normal Breath Sounds, No Wheeze, Rales, Rhonchi Neuro: Positive: Grossly Intact Abdomen: Positive: Soft, Active Bowel Sounds Skin: Positive: Clear. Negative: Rash Musculoskeletal: No Fluid Collection, No Pain, Normal Range of Motion Extremities: Present: normal, upper extr. pulses, lower extr. pulses. Absent: edema - Imaging and Cardiology EKG: report reviewed, image reviewed Echo: report reviewed, image reviewed - Telemetry EKG Rhythm: Sinus Rhythm - EKG Sinus rhythms and dysrhythmias: sinus rhythm QRS axis and voltage: left axis deviation Chamber hypertrophy or enlargement: left ventricular hypertro Repolarization changes or abnormalities: nonspecific abnormality, ST segment, and/or T wave
[2016-09-26] MEDS ORDERED: COZAAR PO SCH (12:00)
--- NOTE | 2016-09-26 12:09 | Event Note ---
Date: 09/26/16 Follow up in our [place] office with Judy Stanton NP, on 10/02/2016 @ 9:30AM. Giovanny YBARRA NP / DR. AVERY
[2016-09-26 12:23] VITALS: BP 154/69
--- NOTE | 2016-09-26 12:55 | Discharge Summary ---
Providers - Providers Date of Admission: 09/24/16 23:47 Date of discharge: 09/26/16 Attending physician: KACY HALL 09/24/16 23:52 Consult to Physician [CONS] Routine Consulting Provider: ETTA CAUSEY Reason For Exam: acs Place consult to:: [facility] Notified:: bertha Was contact made?: Yes Primary care physician: WOOD ENGRAVER Hospitalization Reason for admission: witnessed seizure/chest pain Condition: Stable Pertinent studies: Echocardiogram; left ventricle ejection fraction 35-40% Chest x-ray; no acute abnormality Hospital course: Discharge diagnosis; Chest pain noncardiac Probably secondary to GERD History of seizure disorder Acute on chronic congestive heart failure EF 35-40% COPD History of depression Dyslipidemia History and hospital course; 71-year-old female patient with multiple medical problems as mentioned above was admitted through emergency room with history of witnessed seizure as well as chest pain Patient was initially evaluated for admitted to the hospital symptomatically managed, placed on seizure precautions Evaluated by chief inspector, patient had recent negative stress test, and cardiology advised medical management Patient did not have any new episodes he just since admission, today she is comfortable in bed alert and oriented 3 , no new complaints Ambulatory tolerating oral nutrition, patient strongly advised to be complaints with medications and diet Advised to follow with cardiology and primary care physician, outpatient evaluation by private neurologist, as well as pending colonoscopy by GI Disposition: DC- TO HOME OR SELFCARE Time spent for discharge: 34 min Core Measure Documentation - Palliative Care Palliative Care/ Comfort Measures: Not Applicable - Core Measures Any of the following diagnoses?: heart failure - Heart Failure Discharge Requirements MARIANA/ARB for LVSD if EF <40%: Yes Beta sy at discharge: Yes Exam - Constitutional Vitals: Temp Pulse Resp BP Pulse Ox 98.9 F 71 18 154/69 98 09/26/16 12:00 09/26/16 12:00 09/26/16 12:00 09/26/16 12:00 09/26/16 12:00 General appearance: Present: no acute distress, well-nourished, obese - EENT Eyes: Present: PERRL, EOM intact - Neck Neck: Present: supple, normal ROM - Respiratory Respiratory effort: normal Respiratory: negative: rales, rhonchi, wheezing - Cardiovascular Rhythm: regular Heart Sounds: Present: S1 & S2 - Extremities Extremities: no ischemia, No edema - Abdominal General gastrointestinal: Present: soft, non-tender, non-distended, normal bowel sounds - Integumentary Integumentary: Present: clear, warm - Musculoskeletal Musculoskeletal: strength equal bilaterally - Psychiatric Psychiatric: appropriate mood/affect, cooperative - Neurologic Neurologic: CNII-XII intact, moves all extremities Plan Activity: advance as tolerated, no driving until cleared by PCP, fall precautions, other (seizure precautions) Diet: other (cardiac diet as tolerated) Additional Instructions: If you have chest pain or shortness of breath, contact M.D. or go to emergency room. Follow private neurologist as needed Follow up with: PRIMARY CAREMD [Primary Care Provider] - 3-5 Days JASMYNEAMIRA AVERY MD [Staff Physician] - 7 Days Prescriptions: hydrALAZINE [Apresoline TAB] 25 mg PO Q8HR #90 tablet Losartan [Cozaar] 50 mg PO QDAY #30 tablet
[2016-09-26] MEDS: FLONASE NS SCH (15:31)
== END 2016-09-26 16:59 | disposition home or self-care (01) | DRG 100 ==
LOC: ED 21:29 → 4A 23:47
PROVIDERS: ADMIT Internal Medicine; ATTEND Internal Medicine
DX: G40.901 Epilepsy, unspecified, not intractable, with status epilepticus (principal); I50.23 Acute on chronic systolic (congestive) heart failure; I11.0 Hypertensive heart disease with heart failure; J44.9 Chronic obstructive pulmonary disease, unspecified; I25.2 Old myocardial infarction; M19.90 Unspecified osteoarthritis, unspecified site; I25.10 Atherosclerotic heart disease of native coronary artery without angina pectoris; E78.5 Hyperlipidemia, unspecified; E66.9 Obesity, unspecified; R10.9 Unspecified abdominal pain; I34.0 Nonrheumatic mitral (valve) insufficiency; R07.89 Other chest pain; Z88.5 Allergy status to narcotic agent; Z86.711 Personal history of pulmonary embolism; Z99.81 Dependence on supplemental oxygen; Z95.5 Presence of coronary angioplasty implant and graft; Z90.49 Acquired absence of other specified parts of digestive tract; Z90.710 Acquired absence of both cervix and uterus; Z79.899 Other long term (current) drug therapy; Z83.3 Family history of diabetes mellitus; Z68.34 Body mass index [BMI] 34.0-34.9, adult; Z82.49 Family history of ischemic heart disease and other diseases of the circulatory system
CPT/HCPCS: 36415; 71010; 80053; 80177; 80185; 83690; 84484; 85025; 85379; 93005; 93010; 93306; 94640; 94760; 96374; 96375; A9270-GY; J1200; J2405; J3010

== ENCOUNTER 2017-12-09 13:55 | Emergency (ER) | payer MEDICARE ==
[2017-12-09 14:43] LABS: Basophils % (Auto) 0.8 % (0.0-1.8); Eosinophils # (Auto) 0.1 K/mm3 (0.0-0.4); Eosinophils % (Auto) 1.8 % (0.0-4.3); Hematocrit 36.5 % (30.3-42.9); Hemoglobin 12.2 gm/dl (10.1-14.3); Lymphocytes # (Auto) 1.6 K/mm3 (1.2-5.4); Lymphocytes % (Auto) 27.7 % (13.4-35.0); Mean Corpuscular HGB Conc 33 % (30-34); Mean Corpuscular Hemoglobin 32 pg (28-32); Mean Corpuscular Volume 96 fl (79-97); Monocytes # (Auto) 0.4 K/mm3 (0.0-0.8); Monocytes % (Auto) 7.6 % (0.0-7.3); Platelet Count 285 K/mm3 (140-440); Red Blood Count 3.79 M/mm3 (3.65-5.03); Red Cell Distribution Width 13.4 % (13.2-15.2)
[2017-12-09 15:20] LABS: BUN/Creatinine Ratio 17; Blood Urea Nitrogen 10 mg/dL (7-17); Hemolysis Index 12; Lipase 22 units/L (13-60)
[2017-12-09] MEDS ORDERED: NACL 0.9% 500 ML 500 ML IV ONE (16:08)
[2017-12-09] MEDS ORDERED: PROTONIX IV ONE (16:08)
[2017-12-09] MEDS ORDERED: ZOFRAN IV ONE ×2 (16:08→20:59)
--- NOTE | 2017-12-09 16:25 | Emergency Department Report ---
ED General Adult HPI - General Chief complaint: Abdominal Pain Stated complaint: DIFFICULTY URINATING Time Seen by Provider: 12/09/17 15:55 Source: EMS Mode of arrival: Stretcher Limitations: No Limitations - History of Present Illness Initial comments: 72 yo F presents c/o lower abdominal pain and difficulty urinating x 1 day. Pt denies fever, vomiting, sob, cp or discharge. MD Complaint: difficulty urinating Onset/Timin (day) -: Gradual Location: abdomen Radiation: non-radiation, back, abdomen Severity scale (0 -10): 8 Quality: aching Consistency: constant Improves with: none Worsens with: eating - Related Data Home Medications Medication Instructions Recorded Confirmed Last Taken levETIRAcetam 750 mg PO BID 05/25/14 09/25/16 09/24/16 Fluticasone [Flonase] 2 spray NS QDAY 08/12/14 09/25/16 05/13/16 Pantoprazole [Protonix TAB] 40 mg PO QDAY 08/12/14 09/25/16 09/24/16 Rosuvastatin (Nf) [Crestor] 20 mg PO QHS 08/12/14 09/25/16 09/24/16 Phenytoin [Dilantin] 300 mg PO QHS 09/08/14 09/25/16 09/23/16 ALBUTEROL Inhaler (OR & NICU) 2 puff IH QID PRN 09/24/16 09/25/16 Unknown [ProAir HFA Inhaler] Budesoni/Formotero 160-4.5(Nf) 2 puff IH BID 09/24/16 09/25/16 Unknown [Symbicort 160-4.5 (Nf)] Nitroglycerin [Nitrostat] 0.4 mg SL Q5M 09/24/16 09/25/16 Unknown Previous Rx's Medication Instructions Recorded Last Taken Type Escitalopram [Lexapro] 20 mg PO DAILY tablet 05/27/14 09/24/16 Rx Amlodipine Besylate [Norvasc] 10 mg PO DAILY 30 Days tablet 11/19/14 09/24/16 Rx Carvedilol [Coreg] 12.5 mg PO BID #60 tablet 11/19/14 09/24/16 Rx Clopidogrel [Plavix] 75 mg PO QDAY #30 tablet 11/19/14 09/24/16 Rx ISOSORBIDE MONOnitrate [Imdur ER] 30 mg PO QDAY #30 tablet 11/19/14 09/24/16 Rx Lisinopril [Zestril TAB] 40 mg PO DAILY #30 tablet 11/19/14 09/24/16 Rx Acetaminophen [Acetaminophen TAB] 650 mg PO Q4H PRN #30 tablet 09/08/15 Rx Aspirin [Aspirin BABY CHEW TAB] 81 mg PO QDAY #30 tab.chew 05/17/16 09/24/16 Rx Losartan [Cozaar] 50 mg PO QDAY #30 tablet 09/26/16 Unknown Rx Ranolazine ER [Ranexa ER] 1,000 mg PO BID tablet 09/26/16 Unknown Rx hydrALAZINE [Apresoline TAB] 25 mg PO Q8HR #90 tablet 09/26/16 Unknown Rx Allergies Allergy/AdvReac Type Severity Reaction Status Date / Time morphine Allergy Severe hallucinati Verified 01/06/15 13:14 on ED Review of Systems ROS: Stated complaint: DIFFICULTY URINATING Other details as noted in HPI Comment: All other systems reviewed and negative Constitutional: see HPI. denies: diaphoresis, fever, malaise, weakness Eyes: denies: eye pain ENT: denies: ear pain, throat pain Respiratory: no symptoms reported. denies: cough, SOB with exertion, SOB at rest Cardiovascular: denies: chest pain, palpitations, dyspnea on exertion, edema Endocrine: no symptoms reported Gastrointestinal: abdominal pain. denies: nausea, vomiting, diarrhea, constipation Genitourinary: as per HPI. denies: urgency, dysuria Musculoskeletal: as per HPI Skin: denies: rash, change in color Neurological: denies: headache, weakness, confusion, abnormal gait, vertigo ED Past Medical Hx - Past Medical History Hx Hypertension: Yes Hx Heart Attack/AMI: No Hx Congestive Heart Failure: Yes Hx Diabetes: No Hx Deep Vein Thrombosis: No Hx Pulmonary Embolism: Yes (2011) Hx Sickle Cell Disease: No Hx Arthritis: Yes Hx Seizures: Yes Hx Asthma: No Hx COPD: Yes (Home O2) Hx Tuberculosis: No Hx Dementia: No Hx HIV: No Additional medical history: Beneign Brain Tumor - Surgical History Hx Coronary Stent: Yes Hx Open Heart Surgery: No Hx Pacemaker: No Hx Internal Defibrillator: No Hx Cholecystectomy: Yes Hx Appendectomy: No Hx Breast Surgery: No Additional Surgical History: Brain Surgery x 2, Hysterectomy, [place], Hernia , Bowl Obstruction x 3, Back surgery. right hip surgery - Social History Smoking Status: Never Smoker Substance Use Type: None - Medications Home Medications: Home Medications Medication Instructions Recorded Confirmed Last Taken Type levETIRAcetam 750 mg PO BID 05/25/14 09/25/16 09/24/16 History Escitalopram [Lexapro] 20 mg PO DAILY tablet 05/27/14 09/25/16 09/24/16 Rx Fluticasone [Flonase] 2 spray NS QDAY 08/12/14 09/25/16 05/13/16 History Pantoprazole [Protonix TAB] 40 mg PO QDAY 08/12/14 09/25/16 09/24/16 History Rosuvastatin (Nf) [Crestor] 20 mg PO QHS 08/12/14 09/25/16 09/24/16 History Phenytoin [Dilantin] 300 mg PO QHS 09/08/14 09/25/16 09/23/16 History Amlodipine Besylate [Norvasc] 10 mg PO DAILY 30 Days tablet 11/19/14 09/25/16 09/24/16 Rx Carvedilol [Coreg] 12.5 mg PO BID #60 tablet 11/19/14 09/25/16 09/24/16 Rx Clopidogrel [Plavix] 75 mg PO QDAY #30 tablet 11/19/14 09/25/16 09/24/16 Rx ISOSORBIDE MONOnitrate [Imdur ER] 30 mg PO QDAY #30 tablet 11/19/14 09/25/16 Rx Lisinopril [Zestril TAB] 40 mg PO DAILY #30 tablet 11/19/14 09/25/16 09/24/16 Rx Acetaminophen [Acetaminophen TAB] 650 mg PO Q4H PRN #30 tablet 09/08/1505/11/16 Rx Aspirin [Aspirin BABY CHEW TAB] 81 mg PO QDAY #30 tab.chew 05/17/16 09/25/16 Rx ALBUTEROL Inhaler (OR & NICU) 2 puff IH QID PRN 09/24/16 09/25/16 Unknown History [ProAir HFA Inhaler] Budesoni/Formotero 160-4.5(Nf) 2 puff IH BID 09/24/16 09/25/16 Unknown History [Symbicort 160-4.5 (Nf)] Nitroglycerin [Nitrostat] 0.4 mg SL Q5M 09/24/16 09/25/16 Unknown History Losartan [Cozaar] 50 mg PO QDAY #30 tablet 09/26/16 Unknown Rx Ranolazine ER [Ranexa ER] 1,000 mg PO BID tablet 09/26/16 Unknown Rx hydrALAZINE [Apresoline TAB] 25 mg PO Q8HR #90 tablet 09/26/16 Unknown Rx ED Physical Exam - General Limitations: No Limitations General appearance: alert - Head Head exam: Present: normal inspection - Eye Eye exam: Present: normal appearance, PERRL Pupils: Present: normal accommodation - ENT ENT exam: Present: normal exam, normal orophraynx - Neck Neck exam: Present: normal inspection - Respiratory Respiratory exam: Present: normal lung sounds bilaterally. Absent: respiratory distress, wheezes, chest wall tenderness, accessory muscle use - Cardiovascular Cardiovascular Exam: Present: regular rate, normal rhythm, normal heart sounds - GI/Abdominal GI/Abdominal exam: Present: soft, tenderness, normal bowel sounds. Absent: guarding, rebound, rigid - Rectal Rectal exam: Present: deferred - Extremities Exam Extremities exam: Present: normal inspection, full ROM - Neurological Exam Neurological exam: Present: alert, oriented X3. Absent: altered ED Course Vital Signs 12/09/17 12/09/17 12/09/17 14:05 15:57 16:01 Temperature 98.9 F Pulse Rate 67 Respiratory 20 Rate Blood Pressure 161/76 192/82 183/79 Blood Pressure [Left] O2 Sat by Pulse 97 Oximetry 12/09/17 12/09/17 12/09/17 17:27 17:31 18:03 Temperature Pulse Rate Respiratory 16 Rate Blood Pressure 196/86 205/89 Blood Pressure [Left] O2 Sat by Pulse Oximetry 12/09/17 19:44 Temperature 98 F Pulse Rate 67 Respiratory 14 Rate Blood Pressure Blood Pressure 192/89 [Left] O2 Sat by Pulse 98 Oximetry - Reevaluation(s) Reevaluation #1: 12/09/17 971 Patient reports her symptoms are markedly improved still awaiting CAT scan report. We'll continue to monitor blood pressure patient reports that she did not take her blood pressure medications this morning counseled on the importance of medication compliance. ED Medical Decision Making - Lab Data Result diagrams: 12/09/17 14:27 12/09/17 14:27 Lab Results 12/09/17 12/09/17 12/09/17 Range/Units 14:27 14:27 16:19 WBC 5.8 (4.5-11.0) K/mm3 RBC 3.79 (3.65-5.03) M/mm3 Hgb 12.2 (10.1-14.3) gm/dl Hct 36.5 (30.3-42.9) % MCV 96 (79-97) fl MCH 32 (28-32) pg MCHC 33 (30-34) % RDW 13.4 (13.2-15.2) % Plt Count 285 (140-440) K/mm3 Lymph % (Auto) 27.7 (13.4-35.0) % [place] % (Auto) 7.6 H (0.0-7.3) % Eos % (Auto) 1.8 (0.0-4.3) % Baso % (Auto) 0.8 (0.0-1.8) % Lymph # 1.6 (1.2-5.4) K/mm3 [place] # 0.4 (0.0-0.8) K/mm3 Eos # 0.1 (0.0-0.4) K/mm3 Baso # 0.0 (0.0-0.1) K/mm3 Seg Neutrophils % 62.1 (40.0-70.0) % Seg Neutrophils # 3.6 (1.8-7.7) K/mm3 Sodium 136 L (137-145) mmol/L Potassium 4.0 (3.6-5.0) mmol/L Chloride 97.3 L (98-107) mmol/L Carbon Dioxide 27 (22-30) mmol/L Anion Gap 16 mmol/L BUN 10 (7-17) mg/dL Creatinine 0.6 L (0.7-1.2) mg/dL Estimated GFR > 60 ml/min BUN/Creatinine Ratio 17 % Glucose 96 (65-100) mg/dL Lactic Acid (0.7-2.0) mmol/L Calcium 9.0 (8.4-10.2) mg/dL Total Bilirubin 0.30 (0.1-1.2) mg/dL Direct Bilirubin < 0.2 (0-0.2) mg/dL Indirect Bilirubin 0.1 mg/dL AST 17 (5-40) units/L ALT 12 (7-56) units/L Alkaline Phosphatase 95 (35-129) units/L Total Protein 6.3 (6.3-8.2) g/dL Albumin 4.1 (3.9-5) g/dL Albumin/Globulin Ratio 1.9 % Lipase 22 (13-60) units/L Urine Color (Yellow) Urine Turbidity (Clear) Urine pH (5.0-7.0) Ur Specific [place] (1.003-1.030) Urine Protein (Negative) mg/dL Urine Glucose (UA) (Negative) mg/dL Urine Ketones (Negative) mg/dL Urine Blood (Negative) Urine Nitrite (Negative) Urine Bilirubin (Negative) Urine Urobilinogen (<2.0) mg/dL Ur Leukocyte Esterase (Negative) Urine WBC (Auto) (0.0-6.0) /HPF Urine RBC (Auto) (0.0-6.0) /HPF U Epithel Cells (Auto) (0-13.0) /HPF Urine Bacteria (Auto) (Negative) /HPF Urine Mucus /HPF 12/09/17 12/09/17 Range/Units 16:27 18:11 WBC (4.5-11.0) K/mm3 RBC (3.65-5.03) M/mm3 Hgb (10.1-14.3) gm/dl Hct (30.3-42.9) % MCV (79-97) fl MCH (28-32) pg MCHC (30-34) % RDW (13.2-15.2) % Plt Count (140-440) K/mm3 Lymph % (Auto) (13.4-35.0) % [place] % (Auto) (0.0-7.3) % Eos % (Auto) (0.0-4.3) % Baso % (Auto) (0.0-1.8) % Lymph # (1.2-5.4) K/mm3 [place] # (0.0-0.8) K/mm3 Eos # (0.0-0.4) K/mm3 Baso # (0.0-0.1) K/mm3 Seg Neutrophils % (40.0-70.0) % Seg Neutrophils # (1.8-7.7) K/mm3 Sodium (137-145) mmol/L Potassium (3.6-5.0) mmol/L Chloride (98-107) mmol/L Carbon Dioxide (22-30) mmol/L Anion Gap mmol/L BUN (7-17) mg/dL Creatinine (0.7-1.2) mg/dL Estimated GFR ml/min BUN/Creatinine Ratio % Glucose (65-100) mg/dL Lactic Acid 0.90 (0.7-2.0) mmol/L Calcium (8.4-10.2) mg/dL Total Bilirubin (0.1-1.2) mg/dL Direct Bilirubin (0-0.2) mg/dL Indirect Bilirubin mg/dL AST (5-40) units/L ALT (7-56) units/L Alkaline Phosphatase (35-129) units/L Total Protein (6.3-8.2) g/dL Albumin (3.9-5) g/dL Albumin/Globulin Ratio % Lipase (13-60) units/L Urine Color Yellow (Yellow) Urine Turbidity Clear (Clear) Urine pH 6.0 (5.0-7.0) Ur Specific [place] 1.011 (1.003-1.030) Urine Protein <15 mg/dl (Negative) mg/dL Urine Glucose (UA) Neg (Negative) mg/dL Urine Ketones Neg (Negative) mg/dL Urine Blood Mod (Negative) Urine Nitrite Neg (Negative) Urine Bilirubin Neg (Negative) Urine Urobilinogen < 2.0 (<2.0) mg/dL Ur Leukocyte Esterase Neg (Negative) Urine WBC (Auto) 1.0 (0.0-6.0) /HPF Urine RBC (Auto) 20.0 (0.0-6.0) /HPF U Epithel Cells (Auto) < 1.0 (0-13.0) /HPF Urine Bacteria (Auto) 1+ (Negative) /HPF Urine Mucus Few /HPF - Radiology Data [facility] [address] [place] [address] Cat Scan Report Signed Patient: RODNEY FAY MR#: [id number] : 1945 Acct:[id number] Age/Sex: 72 / F ADM Date: 12/09/17 Loc: ED Attending Dr: Ordering Physician: LORELEI THOMPSON MD Date of Service: 12/09/17 Procedure(s): CT abdomen pelvis wo con Accession Number(s): [id number] cc: LORELEI THOMPSON MD FINAL REPORT EXAM: CT ABDOMEN PELVIS WO CON HISTORY: abdominal pain TECHNIQUE: CT abdomen and pelvis with oral and intravenous contrast PRIORS: None. FINDINGS : No acute abnormality identified in the lung bases. No focal abnormality identified within the liver parenchyma. Patient is status post cholecystectomy. The spleen demonstrates normal size and attenuation. No pancreatic abnormalities seen. The kidneys demonstrate symmetric contrast enhancement. Adrenal glands are unremarkable. No evidence of hydronephrosis. Abdominal aorta is normal in caliber. No pathologically enlarged lymph nodes are identified. No signs of free fluid or free air No evidence of small bowel dilatation. Multiple diverticula are present descending and sigmoid colon no adjacent acute inflammatory changes are observed. There is a Adams within the urinary bladder which is decompressed. Patient is status post lumbar fusion at L5-S1. Multilevel degenerative disc changes are noted lumbar spine. Noted is a right hip prosthesis IMPRESSION: Colonic diverticula. No evidence for acute diverticulitis Lumbar fusion L5-S1 with multilevel degenerative disc changes Right hip prosthesis Status post cholecystectomy Transcribed By: HERB Dictated By : SAMINA HINKLE MD Electronically Authenticated By: SAMINA HINKLE MD Signed Date/Time: 12/09/171952 - Medical Decision Making 72-year-old female initial complaint of abdominal pain. Patient reports the symptoms are markedly improved. The pressure markedly improved. Adams catheter left intact. At least 800 mL of urine actively draining. instructions were given to patient about how to care for a Adams catheter. Instructed patient follow with the urologist next available appointment. Counseled patient on the importance of medication compliance. Patient reports that she has a follow-up appointment with her primary care doctor in a couple days. Patient stable for discharge CT report reviewed lab work reviewed all questions answered. Critical Care Time: No Critical care attestation.: If time is entered above; I have spent that time in minutes in the direct care of this critically ill patient, excluding procedure time. ED Disposition Clinical Impression: Urinary retention Abdominal pain Qualifiers: Abdominal location: generalized Qualified Code(s): R10.84 - Generalized abdominal pain Disposition: TO HOME OR SELFCARE Is pt being admited?: No Does the pt Need Aspirin: No Condition: Undetermined Instructions: Acute Urinary Retention in Women (ED), Abdominal Pain (ED) Referrals: BLANCA KHAN MD [Staff Physician] - 3-5 Days PRIMARY CARE, [Referring] - 3-5 Days Time of Disposition: 21:58
[2017-12-09 17:04] LABS: Alanine Aminotransferase 12 units/L (7-56); Albumin 4.1 g/dL (3.9-5)
[2017-12-09 17:10] LABS: Bilirubin,Direct < 0.2 mg/dL (0-0.2)
[2017-12-09 19:19] LABS: Bacteria,Urine 1+ /HPF (Negative); Bilirubin,Urine NEG (Negative); Blood,Urine MOD (Negative); Color,Urine Yellow (Yellow); Mucus,Urine FEW /HPF; Protein,Urine <15 mg/dL mg/dL (Negative); Urobilinogen,Urine < 2.0 mg/dL (<2.0)
[2017-12-09] MEDS ORDERED: APRESOLINE IV ONE (19:45)
[2017-12-09] MEDS ORDERED: SUBLIMAZE IV ONE (19:46)
[2017-12-09 19:47] VITALS: BP 192/89
--- NOTE | 2017-12-09 19:54 | Cat Scan Report ---
FINAL REPORT EXAM: CT ABDOMEN PELVIS WO CON HISTORY: abdominal pain TECHNIQUE: CT abdomen and pelvis with oral and intravenous contrast PRIORS: None. FINDINGS: No acute abnormality identified in the lung bases. No focal abnormality identified within the liver parenchyma. Patient is status post cholecystectomy. The spleen demonstrates normal size and attenuation. No pancreatic abnormalities seen. The kidneys demonstrate symmetric contrast enhancement. Adrenal glands are unremarkable. No evidence of hydronephrosis. Abdominal aorta is normal in caliber. No pathologically enlarged lymph nodes are identified. No signs of free fluid or free air No evidence of small bowel dilatation. Multiple diverticula are present descending and sigmoid colon no adjacent acute inflammatory changes are observed. There is a Adams within the urinary bladder which is decompressed. Patient is status post lumbar fusion at L5-S1. Multilevel degenerative disc changes are noted lumbar spine. Noted is a right hip prosthesis IMPRESSION: Colonic diverticula. No evidence for acute diverticulitis Lumbar fusion L5-S1 with multilevel degenerative disc changes Right hip prosthesis Status post cholecystectomy
[2017-12-09] MEDS ORDERED: ZOFRAN ONE (21:01)
== END 2017-12-10 02:00 | disposition home or self-care (01) ==
LOC: ED 13:55
DX: R33.9 Retention of urine, unspecified (principal); I11.0 Hypertensive heart disease with heart failure; I50.9 Heart failure, unspecified; M19.90 Unspecified osteoarthritis, unspecified site; J44.9 Chronic obstructive pulmonary disease, unspecified; Z95.1 Presence of aortocoronary bypass graft; Z90.49 Acquired absence of other specified parts of digestive tract; Z90.710 Acquired absence of both cervix and uterus; Z88.6 Allergy status to analgesic agent
CPT/HCPCS: 36415; 74176; 80048; 80074; 81001; 82140; 83690; 85025; 96374; 96375; 96376; 99284; C9113; J0360; J2405; J3010; J7040

== ENCOUNTER 2019-03-31 01:10 | Emergency (ER) | payer MEDICARE ==
[2019-03-31] MEDS ORDERED: KETOROLAC 30 MG/1 ML INJ IV ONE ×2 (02:31→09:30)
[2019-03-31] MEDS ORDERED: FAMOTIDINE 20 MG/2 ML INJ IV ONE (02:31)
--- NOTE | 2019-03-31 03:07 | Cat Scan Report ---
CT ABDOMEN AND PELVIS WITHOUT CONTRAST HISTORY: upper abd pain, nausea. COMPARISON: CT abdomen/pelvis from 12/09/2017 TECHNIQUE: CT images of the abdomen and pelvis were obtained without administration of intravenous co ntrast. All CT scans at this location are performed using CT dose reduction for ALARA by means of au tomated exposure control. FINDINGS: Lungs/bones: There is minimal basilar atelectasis with otherwise clear lungs. Degenerative changes a re present in the spine and pelvis with postoperative change in the lower lumbar spine and in the rig ht hip. No hardware complication. Abdomen/pelvis: The gallbladder is surgically absent. A small cyst is seen in the right lobe of the liver. The spleen, pancreas, adrenals, kidneys, and proximal GI tract appear unremarkable. Urinary bladder is unremarkable. Uterus is surgically absent. There is colonic diverticulosis with no acute inflammatory change identified. Moderate proximal colonic stool burden is seen with low-lying cecum. Terminal ileum is unremarkable. IMPRESSION: 1. No acute abnormality identified. 2. Incidental findings as above. Signer Name: Radu Noyola MD Signed: 03/31/2019 3:03 AM Workstation Name: [email or web address]
[2019-03-31 03:21] LABS: Basophils % (Auto) 0.6 % (0.0-1.8); Eosinophils # (Auto) 0.1 K/mm3 (0.0-0.4); Eosinophils % (Auto) 2.1 % (0.0-4.3); Hematocrit 42.3 % (30.3-42.9); Hemoglobin 13.8 gm/dl (10.1-14.3); Lymphocytes # (Auto) 2.3 K/mm3 (1.2-5.4); Lymphocytes % (Auto) 37.7 % (13.4-35.0); Mean Corpuscular HGB Conc 33 % (30-34); Mean Corpuscular Volume 96 fl (79-97); Monocytes # (Auto) 0.5 K/mm3 (0.0-0.8); Monocytes % (Auto) 8.5 % (0.0-7.3); Platelet Count 310 K/mm3 (140-440); Red Blood Count 4.41 M/mm3 (3.65-5.03); Red Cell Distribution Width 13.8 % (13.2-15.2)
[2019-03-31 03:29] LABS: INR 1.06 (0.87-1.13)
--- NOTE | 2019-03-31 03:29 | XRay Report ---
CHEST 1 VIEW INDICATION: cp. COMPARISON: 09/24/2016 FINDINGS: Support devices: None. Heart: Within normal limits. Lungs/Pleura: No acute air space or interstitial disease. Additional findings: None. IMPRESSION: 1. No acute findings. Signer Name: Radu Noyola MD Signed: 03/31/2019 3:24 AM Workstation Name: [email or web address]
[2019-03-31 03:30] LABS: Partial Thromboplastin Time 27.5 Sec. (24.2-36.6)
[2019-03-31 03:59] LABS: Albumin 4.3 g/dL (3.9-5); BUN/Creatinine Ratio 18; Blood Urea Nitrogen 7 mg/dL (7-17); Calcium 9.8 mg/dL (8.4-10.2); Hemolysis Index 112
[2019-03-31 04:09] LABS: Alanine Aminotransferase 15 units/L (7-56)
[2019-03-31 04:20] LABS: Bilirubin,Urine NEG (Negative); Blood,Urine MOD (Negative); Color,Urine Yellow (Yellow); Mucus,Urine FEW /HPF; Urobilinogen,Urine < 2.0 mg/dL (<2.0)
--- NOTE | 2019-03-31 05:48 | Emergency Department Report ---
ED Abdominal Pain HPI - General Chief Complaint: Abdominal Pain Stated Complaint: ABD PAIN Time Seen by Provider: 03/31/19 02:13 Source: patient, EMS Mode of arrival: Stretcher Limitations: No Limitations - History of Present Illness Initial Comments: 73-year-old female with a past medical history of COPD with her home oxygen dependent, PE in 2011 CAD with stent, previous cholecystectomy, hysterectomy, bowel obstruction 3, and hernia presents to the hospital complaining of intermittent crampy abdominal pain in the upper abdomen 2 days. Patient also has not had a bowel movement in the last 2 days. Patient was seen by Dr. Mohan urology today who suggested she might have UTI or kidney stone. Patient also states she has used a toenail clipper to remove what she thought was worms from bilateral breasts. Patient complain of some pain across her chest started after arrival to the ED. She complained of some mild shortness of breath in ED while on room air which improved with supplemental oxygen. Severity scale (0 -10): 5 - Related Data Home Medications Medication Instructions Recorded Confirmed Last Taken levETIRAcetam 750 mg PO BID 05/25/14 09/25/16 09/24/16 Fluticasone [Flonase] 2 spray NS QDAY 08/12/14 09/25/16 05/13/16 Pantoprazole [Protonix TAB] 40 mg PO QDAY 08/12/14 09/25/16 09/24/16 Rosuvastatin (Nf) [Crestor] 20 mg PO QHS 08/12/14 09/25/16 09/24/16 Phenytoin [Dilantin] 300 mg PO QHS 09/08/14 09/25/16 09/23/16 Albuterol INH(or & Nicu Only) 2 puff IH QID PRN 09/24/16 09/25/16 Unknown [ProAir HFA Inhaler] Budesoni/Formotero 160-4.5(Nf) 2 puff IH BID 09/24/16 09/25/16 Unknown [Symbicort 160-4.5 (Nf)] Nitroglycerin [Nitrostat] 0.4 mg SL Q5M 09/24/16 09/25/16 Unknown Previous Rx's Medication Instructions Recorded Last Taken Type Escitalopram [Lexapro] 20 mg PO DAILY tablet 05/27/14 09/24/16 Rx Amlodipine Besylate [Norvasc] 10 mg PO DAILY 30 Days tablet 11/19/14 09/24/16 Rx Clopidogrel [Plavix] 75 mg PO QDAY #30 tablet 11/19/14 09/24/16 Rx ISOSORBIDE MONOnitrate [Imdur ER] 30 mg PO QDAY #30 tablet 11/19/14 09/24/16 Rx carvediloL [Coreg] 12.5 mg PO BID #60 tablet 11/19/14 09/24/16 Rx lisinopriL [Zestril TAB] 40 mg PO DAILY #30 tablet 11/19/14 09/24/16 Rx Acetaminophen [Acetaminophen TAB] 650 mg PO Q4H PRN #30 tablet 09/08/15 05/11/16 Rx Aspirin [Aspirin BABY CHEW TAB] 81 mg PO QDAY #30 tab.chew 05/17/16 09/24/16 Rx Losartan [Cozaar] 50 mg PO QDAY #30 tablet 09/26/16 Unknown Rx Ranolazine ER [Ranexa ER] 1,000 mg PO BID tablet 09/26/16 Unknown Rx hydrALAZINE [Apresoline TAB] 25 mg PO Q8HR #90 tablet 09/26/16 Unknown Rx Allergies Allergy/AdvReac Type Severity Reaction Status Date / Time morphine Allergy Severe hallucinati Verified 01/06/15 13:14 on ED Review of Systems ROS: Stated complaint: ABD PAIN Other details as noted in HPI Comment: All other systems reviewed and negative ED Past Medical Hx - Past Medical History Hx Hypertension: Yes Hx Heart Attack/AMI: No Hx Congestive Heart Failure: Yes Hx Diabetes: No Hx Deep Vein Thrombosis: No Hx Pulmonary Embolism: Yes (2011) Hx Sickle Cell Disease: No Hx Arthritis: Yes Hx Seizures: Yes Hx Asthma: No Hx COPD: Yes (Home O2) Hx Tuberculosis: No Hx Dementia: No Hx HIV: No Additional medical history: Beneign Brain Tumor - Surgical History Hx Coronary Stent: Yes Hx Open Heart Surgery: No Hx Pacemaker: No Hx Internal Defibrillator: No Hx Cholecystectomy: Yes Hx Appendectomy: No Hx Breast Surgery: No Additional Surgical History: Brain Surgery x 2, Hysterectomy, [place], Hernia, Bowl Obstruction x 3, Back surgery. right hip surgery - Social History Smoking Status: Never Smoker Substance Use Type: None - Medications Home Medications: Home Medications Medication Instructions Recorded Confirmed Last Taken Type levETIRAcetam 750 mg PO BID 05/25/14 09/25/16 09/24/16 History Escitalopram [Lexapro] 20 mg PO DAILY tablet 05/27/14 09/25/16 09/24/16 Rx Fluticasone [Flonase] 2 spray NS QDAY 08/12/14 09/25/16 05/13/16 History Pantoprazole [Protonix TAB] 40 mg PO QDAY 08/12/14 09/25/16 09/24/16 History Rosuvastatin (Nf) [Crestor] 20 mg PO QHS 08/12/14 09/25/16 09/24/16 History Phenytoin [Dilantin] 300 mg PO QHS 09/08/14 09/25/16 09/23/16 History Amlodipine Besylate [Norvasc] 10 mg PO DAILY 30 Days tablet 11/19/14 09/25/16 09/24/16 Rx Clopidogrel [Plavix] 75 mg PO QDAY #30 tablet 11/19/14 09/25/16 09/24/16 Rx ISOSORBIDE MONOnitrate [Imdur ER] 30 mg PO QDAY #30 tablet 11/19/14 09/25/16 09/24/16 Rx carvediloL [Coreg] 12.5 mg PO BID #60 tablet 11/19/14 09/25/16 09/24/16 Rx lisinopriL [Zestril TAB] 40 mg PO DAILY #30 tablet 11/19/14 09/25/16 09/24/16 Rx Acetaminophen [Acetaminophen TAB] 650 mg PO Q4H PRN #30 tablet 09/08/15 09/25/16 05/11/16 Rx Aspirin [Aspirin BABY CHEW TAB] 81 mg PO QDAY #30 tab.chew 05/17/16 09/25/16 09/24/16 Rx Albuterol INH(or & Nicu Only) 2 puff IH QID PRN 09/24/16 09/25/16 Unknown History [ProAir HFA Inhaler] Budesoni/Formotero 160-4.5(Nf) 2 puff IH BID 09/24/16 09/25/16 Unknown History [Symbicort 160-4.5 (Nf)] Nitroglycerin [Nitrostat] 0.4 mg SL Q5M 09/24/16 09/25/16 Unknown History Losartan [Cozaar] 50 mg PO QDAY #30 tablet 09/26/16 Unknown Rx Ranolazine ER [Ranexa ER] 1,000 mg PO BID tablet 09/26/16 Unknown Rx hydrALAZINE [Apresoline TAB] 25 mg PO Q8HR #90 tablet 09/26/16 Unknown Rx ED Physical Exam - General Limitations: No Limitations - Other Other exam information: General: No limitations, patient is alert in no acute distress Head exam: Atraumatic, normocephalic Eyes exam: Normal appearance ENT: Moist mucous membrane Neck exam: Normal inspection, full range of motion Respiratory exam: Clear to auscultation bilateral, no wheezes, rales, crackles, no tachypnea or excessive muscle use Cardiovascular: Normal rate and rhythm Abdomen: Soft, nondistended, and nontender, with normal bowel sounds, no rebound, or guarding. Previous surgical scars noted. Right upper quadrant, epigastric, left upper quadrant tenderness to palpation Extremity: No deformity no calf tenderness or leg edema Back: Normal Inspection Neurologic: Alert, oriented x3, speech clear, no gross motor or sensory deficit Psychiatric: Normal mood, affect Skin: No rash. Right breast shows areas where patient caused abrasions with her toenail clipper. Also a mild area on the left breast. No signs of warmth, erythema, or active bleeding. ED Course Vital Signs 03/31/19 03/31/19 03/31/19 01:37 01:43 01:46 Temperature 98.0 F Pulse Rate 61 67 Respiratory 18 13 Rate Blood Pressure 193/87 186/85 O2 Sat by Pulse 100 94 91 Oximetry 03/31/19 03/31/19 03/31/19 02:00 02:15 02:30 Temperature Pulse Rate 65 67 64 Respiratory 11 L 12 11 L Rate Blood Pressure 175/75 184/84 182/83 O2 Sat by Pulse 90 Oximetry 03/31/19 03/31/19 03/31/19 02:55 03:00 03:16 Temperature Pulse Rate 64 66 Respiratory 21 15 Rate Blood Pressure 182/83 184/75 185/85 O2 Sat by Pulse 100 98 96 Oximetry 03/31/19 03/31/19 03/31/19 03:30 03:45 04:00 Temperature Pulse Rate 66 64 75 Respiratory 11 L 11 L 16 Rate Blood Pressure 159/87 164/73 159/87 O2 Sat by Pulse 97 95 97 Oximetry 03/31/19 03/31/19 03/31/19 04:16 04:30 04:46 Temperature Pulse Rate 67 67 67 Respiratory 12 13 16 Rate Blood Pressure 155/68 163/72 172/71 O2 Sat by Pulse 92 88 83 L Oximetry 03/31/19 03/31/19 03/31/19 05:00 05:16 05:30 Temperature Pulse Rate 68 66 66 Respiratory 13 13 17 Rate Blood Pressure 172/71 172/72 176/77 O2 Sat by Pulse 88 Oximetry 03/31/19 05:46 Temperature Pulse Rate 68 Respiratory 14 Rate Blood Pressure 176/77 O2 Sat by Pulse 96 Oximetry - Reevaluation(s) Reevaluation #1: 03/31/19 05:54 Patient's saturation 36 with 80% however, patient was on room air since she was connected to oxygen tank on the bed was empty. Patient placed on 3 L and oxygen improved 03/31/19 06:07 pt c/o cp once again, repeat trop ordered, asa ordered, hospitalist informed of admission ED Medical Decision Making - Lab Data Result diagrams: 03/31/19 02:50 03/31/19 02:50 Lab Results 03/31/19 03/31/19 03/31/19 Range/Units 02:50 02:50 02:50 WBC 6.2 (4.5-11.0) K/mm3 RBC 4.41 (3.65-5.03) M/mm3 Hgb 13.8 (10.1-14.3) gm/dl Hct 42.3 (30.3-42.9) % MCV 96 (79-97) fl MCH 31 (28-32) pg MCHC 33 (30-34) % RDW 13.8 (13.2-15.2) % Plt Count 310 (140-440) K/mm3 Lymph % (Auto) 37.7 H (13.4-35.0) % Bowie % (Auto) 8.5 H (0.0-7.3) % Eos % (Auto) 2.1 (0.0-4.3) % Baso % (Auto) 0.6 (0.0-1.8) % Lymph # 2.3 (1.2-5.4) K/mm3 Bowie # 0.5 (0.0-0.8) K/mm3 Eos # 0.1 (0.0-0.4) K/mm3 Baso # 0.0 (0.0-0.1) K/mm3 Seg Neutrophils % 51.1 (40.0-70.0) % Seg Neutrophils # 3.2 (1.8-7.7) K/mm3 PT 13.9 (12.2-14.9) Sec. INR 1.06 (0.87-1.13) APTT 27.5 (24.2-36.6) Sec. Sodium 138 (137-145) mmol/L Potassium 3.9 (3.6-5.0) mmol/L Chloride 96.2 L (98-107) mmol/L Carbon Dioxide 29 (22-30) mmol/L Anion Gap 17 mmol/L BUN 7 (7-17) mg/dL Creatinine 0.4 L (0.7-1.2) mg/dL Estimated GFR > 60 ml/min BUN/Creatinine Ratio 18 % Glucose 94 (65-100) mg/dL Calcium 9.8 (8.4-10.2) mg/dL Total Bilirubin 0.30 (0.1-1.2) mg/dL AST 28 (5-40) units/L ALT 15 (7-56) units/L Alkaline Phosphatase 98 (35-129) units/L Troponin T < 0.010 (0.00-0.029) ng/mL Total Protein 7.6 (6.3-8.2) g/dL Albumin 4.3 (3.9-5) g/dL Albumin/Globulin Ratio 1.3 % Lipase 21 (13-60) units/L Urine Color (Yellow) Urine Turbidity (Clear) Urine pH (5.0-7.0) Ur Specific Leonard (1.003-1.030) Urine Protein (Negative) mg/dL Urine Glucose (UA) (Negative) mg/dL Urine Ketones (Negative) mg/dL Urine Blood (Negative) Urine Nitrite (Negative) Urine Bilirubin (Negative) Urine Urobilinogen (<2.0) mg/dL Ur Leukocyte Esterase (Negative) Urine WBC (Auto) (0.0-6.0) /HPF Urine RBC (Auto) (0.0-6.0) /HPF U Epithel Cells (Auto) (0-13.0) /HPF Urine Mucus /HPF 03/31/19 Range/Units 04:02 WBC (4.5-11.0) K/mm3 RBC (3.65-5.03) M/mm3 Hgb (10.1-14.3) gm/dl Hct (30.3-42.9) % MCV (79-97) fl MCH (28-32) pg MCHC (30-34) % RDW (13.2-15.2) % Plt Count (140-440) K/mm3 Lymph % (Auto) (13.4-35.0) % Bowie % (Auto) (0.0-7.3) % Eos % (Auto) (0.0-4.3) % Baso % (Auto) (0.0-1.8) % Lymph # (1.2-5.4) K/mm3 Bowie # (0.0-0.8) K/mm3 Eos # (0.0-0.4) K/mm3 Baso # (0.0-0.1) K/mm3 Seg Neutrophils % (40.0-70.0) % Seg Neutrophils # (1.8-7.7) K/mm3 PT (12.2-14.9) Sec. INR (0.87-1.13) APTT (24.2-36.6) Sec. Sodium (137-145) mmol/L Potassium (3.6-5.0) mmol/L Chloride (98-107) mmol/L Carbon Dioxide (22-30) mmol/L Anion Gap mmol/L BUN (7-17) mg/dL Creatinine (0.7-1.2) mg/dL Estimated GFR ml/min BUN/Creatinine Ratio % Glucose (65-100) mg/dL Calcium (8.4-10.2) mg/dL Total Bilirubin (0.1-1.2) mg/dL AST (5-40) units/L ALT (7-56) units/L Alkaline Phosphatase (35-129) units/L Troponin T (0.00-0.029) ng/mL Total Protein (6.3-8.2) g/dL Albumin (3.9-5) g/dL Albumin/Globulin Ratio % Lipase (13-60) units/L Urine Color Yellow (Yellow) Urine Turbidity Clear (Clear) Urine pH 7.0 (5.0-7.0) Ur Specific Leonard 1.016 (1.003-1.030) Urine Protein 30 mg/dl (Negative) mg/dL Urine Glucose (UA) Neg (Negative) mg/dL Urine Ketones Neg (Negative) mg/dL Urine Blood Mod (Negative) Urine Nitrite Neg (Negative) Urine Bilirubin Neg (Negative) Urine Urobilinogen < 2.0 (<2.0) mg/dL Ur Leukocyte Esterase Neg (Negative) Urine WBC (Auto) 4.0 (0.0-6.0) /HPF Urine RBC (Auto) 22.0 (0.0-6.0) /HPF U Epithel Cells (Auto) 1.0 (0-13.0) /HPF Urine Mucus Few /HPF - EKG Data -: EKG Interpreted by Ks EKG shows normal: sinus rhythm, ST-T waves (lvh with repol) Rate: normal (66) - EKG Data When compared to previous EKG there are: no significant change - Radiology Data Radiology results: report reviewed CT ABDOMEN AND PELVIS WITHOUT CONTRAST HISTORY: upper abd pain, nausea. COMPARISON: CT abdomen/pelvis from 12/09/2017 TECHNIQUE: CT images of the abdomen and pelvis were obtained without administration of intravenous contrast. All CT scans at this location are performed using CT dose reduction for ALARA by means of automated exposure control. FINDINGS: Lungs/bones: There is minimal basilar atelectasis with otherwise clear lungs. Degenerative changes are present in the spine and pelvis with postoperative change in the lower lumbar spine and in the right hip. No hardware complication. Abdomen/pelvis: The gallbladder is surgically absent. A small cyst is seen in the right lobe of the liver. The spleen, pancreas, adrenals, kidneys, and proximal GI tract appear unremarkable. Urinary bladder is unremarkable. Uterus is surgically absent. There is colonic diverticulosis with no acute inflammatory change identified. Moderate proximal colonic stool burden is seen with low- lying cecum. Terminal ileum is unremarkable. IMPRESSION: 1. No acute abnormality identified. 2. Incidental findings as above. CHEST 1 VIEW INDICATION: cp. COMPARISON: 09/24/2016 FINDINGS: Support devices: None. Heart: Within normal limits. Lungs/Pleura: No acute air space or interstitial disease. Additional findings: None. IMPRESSION: 1. No acute findings. - Medical Decision Making Presents with complaints of abdominal pain [address] suggestive of perhaps mild fecal retention. Patient complaining of mild chest pain after arrival which has resolved. Patient also had initial shortness of breath but was on room air and she is 3 L O2 dependent. She was a breath also resolved with supplement oxygenation. She received Toradol and Pepcid for pain with impro vement in symptoms. prior to d/c pt c/o c/p again and therefore she will be admitted pt has multi system complaints during ed stay - Differential Diagnosis pud, constipation, obstruction, gerd, mi Critical Care Time: No Critical care attestation.: If time is entered above; I have spent that time in minutes in the direct care of this critically ill patient, excluding procedure time. ED Disposition Clinical Impression: COPD (chronic obstructive pulmonary disease), O2 dependent, Constipation, Skin abrasion, Chest pain Disposition: OP ADMIT IP TO THIS HOSP Is pt being admited?: Yes Condition: Stable Time of Disposition: 06:10
[2019-03-31] MEDS ORDERED: ALBUTEROL 8.5 GM INHALATION IH PRN (07:52)
[2019-03-31] MEDS ORDERED: MORPHINE 2 MG/1 ML INJ IV PRN (07:52)
[2019-03-31] MEDS ORDERED: ACETAMINOPHEN 325 MG TAB PO PRN (07:52)
--- NOTE | 2019-03-31 08:13 | Short Stay Summary ---
Short Stay Documentation Date of service: 03/31/19 Narrative H&P: Patient is a 73-year-old female with significant past medical history including COPD with her home oxygen dependent, PE in 2012 CAD with stent, previous cholecystectomy, hysterectomy, bowel obstruction 3, and hernia presents to the hospital complaining of intermittent crampy abdominal pain in the upper abdomen 2 days. Although she informed the ED this when I went to discuss with her the patient was visibly upset about some chaos she witnessed in the ED and states that that is what caused the chest pain she reports that she actually came to the hospital because for 2 days she was noticing what appeared to be worms coming out of her left breast. She says that when she looked at it it appears to be skin. On examination she did have areas on her left breast which appears to be excoriated and she states that that is what has been causing her pain. She denies any chest pain nausea vomiting or diarrhea she reports that her abdominal pain also seems from that that she had used toenail clipper to remove what she thought was warm out from that area. She states that she follows up closely with her staff toxicologist. And would like to be discharged home EKG Data -: EKG Interpreted by Me EKG shows normal: sinus rhythm, ST-T waves (lvh with repol) Rate: normal (66) - EKG Data When compared to previous EKG there are: no significant change - Radiology Data Radiology results: report reviewed CT ABDOMEN AND PELVIS WITHOUT CONTRAST HISTORY: upper abd pain, nausea. COMPARISON: CT abdomen/pelvis from 12/09/2017 TECHNIQUE: CT images of the abdomen and pelvis were obtained without administration of intravenous contrast. All CT scans at this location are performed using CT dose reduction for ALARA by means of automated exposure control. FINDINGS: Lungs/bones: There is minimal basilar atelectasis with otherwise clear lungs. Degenerative changes are present in the spine and pelvis with postoperative change in the lower lumbar spine and in the right hip. No hardware complication. Abdomen/pelvis: The gallbladder is surgically absent. A small cyst is seen in the right lobe of the liver. The spleen, pancreas, adrenals, kidneys, and proximal GI tract appear unremarkable. Urinary bladder is unremarkable. Uterus is surgically absent. There is colonic diverticulosis with no acute inflammatory change identified. Moderate proximal colonic stool burden is seen with low- lying cecum. Terminal ileum is unremarkable. IMPRESSION: 1. No acute abnormality identified. 2. Incidental findings as above. CHEST 1 VIEW INDICATION: cp. COMPARISON: 09/24/2016 FINDINGS: Support devices: None. Heart: Within normal limits. Lungs/Pleura: No acute air space or interstitial disease. Additional findings: None. IMPRESSION: 1. No acute findings. - History Principal diagnosis: Atypical chest pain secondary to costochondritis. Cellulitis of the right Past Medical History: other (As noted in in narrative H&P) Past Surgical History: Other (As noted in narrative H&P) Social history: no significant social history - Allergies and Medications Current Medications: Allergies morphine Allergy (Severe, Verified 01/06/15 13:14) hallucination Home Medications Medication Instructions Recorded Confirmed Last Taken Type levETIRAcetam 750 mg PO BID 05/25/14 09/25/16 09/24/16 History Escitalopram [Lexapro] 20 mg PO DAILY tablet 05/27/14 09/25/16 09/24/16 Rx Fluticasone [Flonase] 2 spray NS QDAY 08/12/14 09/25/16 05/13/16 History Pantoprazole [Protonix TAB] 40 mg PO QDAY 08/12/14 09/25/16 09/24/16 History Rosuvastatin (Nf) [Crestor] 20 mg PO QHS 08/12/14 09/25/16 09/24/16 History Phenytoin [Dilantin] 300 mg PO QHS 09/08/14 09/25/16 09/23/16 History Amlodipine Besylate [Norvasc] 10 mg PO DAILY 30 Days tablet 11/19/14 09/25/16 09/24/16 Rx Clopidogrel [Plavix] 75 mg PO QDAY #30 tablet 11/19/14 09/25/16 09/24/16 Rx ISOSORBIDE MONOnitrate [Imdur ER] 30 mg PO QDAY #30 tablet 11/19/14 09/25/16 09/24/16 Rx carvediloL [Coreg] 12.5 mg PO BID #60 tablet 11/19/14 09/25/16 09/24/16 Rx lisinopriL [Zestril TAB] 40 mg PO DAILY #30 tablet 11/19/14 09/25/16 09/24/16 Rx Acetaminophen [Acetaminophen TAB] 650 mg PO Q4H PRN #30 tablet 09/08/15 09/25/16 05/11/16 Rx Aspirin [Aspirin BABY CHEW TAB] 81 mg PO QDAY #30 tab.chew 05/17/16 09/25/16 09/24/16 Rx Albuterol INH(or & Nicu Only) 2 puff IH QID PRN 09/24/16 09/25/16 Unknown History [ProAir HFA Inhaler] Budesoni/Formotero 160-4.5(Nf) 2 puff IH BID 09/24/16 09/25/16 Unknown History [Symbicort 160-4.5 (Nf)] Nitroglycerin [Nitrostat] 0.4 mg SL Q5M 09/24/16 09/25/16 Unknown History Losartan [Cozaar] 50 mg PO QDAY #30 tablet 09/26/16 Unknown Rx Ranolazine ER [Ranexa ER] 1,000 mg PO BID tablet 09/26/16 Unknown Rx hydrALAZINE [Apresoline TAB] 25 mg PO Q8HR #90 tablet 09/26/16 Unknown Rx Active Medications Acetaminophen (Tylenol) 650 mg PO Q4H PRN PRN Reason: Pain MILD(1-3)/Fever >100.5/FERRER Albuterol (Proair) 2 puff IH QID PRN PRN Reason: Shortness Of Breath Aspirin (Baby Aspirin) 81 mg PO QDAY [facility] Bisacodyl (Dulcolax) 10 mg PO QDAY PRN PRN Reason: Constipation Carvedilol (Coreg) 12.5 mg PO BID [facility] Clopidogrel Bisulfate (Plavix) 75 mg PO QDAY [facility] Escitalopram Oxalate (Lexapro) 20 mg PO DAILY [facility] Fluticasone Propionate (Flonase) 100 mcg NS QDAY [facility] Hydralazine HCl (Apresoline) 25 mg PO Q8HR [facility] Isosorbide Mononitrate (Imdur) 30 mg PO QDAY [facility] Ketorolac Tromethamine (Toradol) 30 mg IV ONCE ONE Stop: 03/31/19 08:11 Lisinopril (Zestril) 40 mg PO DAILY [facility] Losartan Potassium (Cozaar) 50 mg PO QDAY [facility] Miscellaneous Medication (Amlodipine Besylate [Norvasc]) 10 mg PO DAILY [facility] Miscellaneous Medication (Budesoni/Formotero 160-4.5(Nf)) 2 puff IH BID [facility] Miscellaneous Medication (Levetiracetam) 750 mg PO BID [facility] Miscellaneous Medication (Rosuvastatin (Nf)) 20 mg PO QHS [facility] Nitroglycerin (Nitrostat) 0.4 mg SL Q5M [facility] Nystatin (Nystop) 1 applic TP ONCE ONE Stop: 03/31/19 08:11 Pantoprazole Sodium (Protonix) 40 mg PO QDAY [facility] Phenytoin (Dilantin) 300 mg PO QHS [facility] Ranolazine (Ranexa Er) 1,000 mg PO BID [facility] Senna (Senokot) 8.8 mg PO ONCE ONE Stop: 03/31/19 07:53 - Physical exam General appearance: no acute distress HEENT: Mucous membr. moist/pink (with excouritation under the right brest) Lungs: Clear to auscultation Breasts: discharge Gastrointestinal: normal, absent bowel sounds, no tenderness, no distended, no masses, no guarding, no organomegaly, no hepatomegaly, no splenomegaly, obese, no pulsatile mass, no pulsatile liver Rectal Exam: deferred Extremities: no ischemia, pulses intact, pulses symmetrical, No edema, normal temperature, normal color, Full ROM Neurological: Normal speech, Strength at 5/5 X4 ext - Brief post op/procedure progress note Condition: stable - Hospital course Hospital course: Lab work-up that was already obtained in the ED shows no abnormality found imaging studies were also negative. At this point patient will be discharged she was given a dose of antibiotics for empiric purposes for possible cellulitis of the breast and will continue antibiotics and discharge home. - Disposition Condition at discharge: Stable Disposition: [id number] [facility] Short Stay Discharge Plan Follow up with: ANATOLY CIFUENTES MD [Staff Physician] - 7 Days PRIMARY CARE, [Primary Care Provider] - 7 Days Prescriptions: bisacodyL [Dulcolax tab] 10 mg PO QDAY PRN #30 tablet PRN Reason: Constipation bisacodyL [Dulcolax tab] 10 mg PO QDAY PRN #30 tablet PRN Reason: Constipation cephALEXin [Keflex] 500 mg PO BID #14 capsule cephALEXin [Keflex] 500 mg PO Q12HR #14 cap Nystatin [Nystop Powder] 1 applicatio TP TID #7 bottle Nystatin [Nystop Powder] 1 applicatio TP BID #1 bottle
[2019-03-31] MEDS ORDERED: NITROGLYCERIN 0.4 MG TAB SUBL SL SCH (09:00)
[2019-03-31] MEDS ORDERED: cephALEXin 500 MG CAP PO ONE (09:00)
[2019-03-31] MEDS ORDERED: SENNOSIDES ORAL LIQD 8.8 MG/5 ML ORAL LIQD PO ONE (09:00)
[2019-03-31] MEDS ORDERED: NYSTATIN POWDER 15 GM TP SCH (09:00)
[2019-03-31] MEDS ORDERED: cephALEXin 500 MG CAP ONE (09:25)
[2019-03-31] MEDS ORDERED: PANTOPRAZOLE 40 MG TAB PO ONE (09:31)
[2019-03-31] MEDS ORDERED: KETOROLAC 30 MG/1 ML INJ ONE (09:31)
[2019-03-31] MEDS ORDERED: LISINOPRIL 20 MG TAB ONE (09:31)
[2019-03-31] MEDS ORDERED: levETIRAcetam 500 MG TAB PO ONE (09:31)
[2019-03-31] MEDS ORDERED: ASPIRIN 81 MG TAB CHEW ONE (09:31)
[2019-03-31] MEDS ORDERED: LOSARTAN 50 MG TAB ONE (09:32)
[2019-03-31] MEDS ORDERED: CLOPIDOGREL 75 MG TAB ONE (09:32)
[2019-03-31] MEDS ORDERED: carvediloL 25 MG TAB ONE (09:32)
[2019-03-31] MEDS ORDERED: amLODIPine 10 MG TAB ONE (09:32)
[2019-03-31] MEDS ORDERED: NON-FORMULARY EACH (Levetiracetam 750 MG) PO SCH (10:00)
[2019-03-31] MEDS ORDERED: NON-FORMULARY EACH (Budesoni/Formotero 160-4.5(Nf) 2 PUFF) IH SCH (10:00)
[2019-03-31] MEDS ORDERED: RANOLAZINE ER 500 MG TAB 12HR PO SCH (10:00)
[2019-03-31] MEDS ORDERED: ASPIRIN 81 MG TAB CHEW PO SCH (10:00)
[2019-03-31] MEDS ORDERED: FLUTICASONE PROPIONATE NASAL SPRAY 16 GM NS SCH (10:00)
[2019-03-31] MEDS ORDERED: LISINOPRIL 40 MG TAB PO SCH (10:00)
[2019-03-31] MEDS ORDERED: CLOPIDOGREL 75 MG TAB PO SCH (10:00)
[2019-03-31] MEDS ORDERED: NON-FORMULARY EACH (Amlodipine Besylate [Norvasc] 10 MG) PO SCH (10:00)
[2019-03-31] MEDS ORDERED: levETIRAcetam 500 MG/5 ML ORAL LIQD PO SCH (10:00)
[2019-03-31] MEDS ORDERED: ESCITALOPRAM 10 MG TAB PO SCH (10:00)
[2019-03-31] MEDS ORDERED: carvediloL 12.5 MG TAB PO SCH (10:00)
[2019-03-31] MEDS ORDERED: LOSARTAN 50 MG TAB PO SCH (10:00)
[2019-03-31] MEDS ORDERED: amLODIPine 10 MG TAB PO SCH (10:00)
[2019-03-31] MEDS ORDERED: PANTOPRAZOLE 40 MG TAB PO SCH (10:00)
[2019-03-31] MEDS ORDERED: ALBUTEROL 2.5 MG/3 ML NEBU IH PRN (12:00)
[2019-03-31] MEDS ORDERED: ARFORMOTEROL 15 MCG/2 ML NEBU IH SCH ×2 (12:00→20:00)
[2019-03-31] MEDS ORDERED: BUDESONIDE 0.5 MG/2 ML NEBU IH SCH ×3 (12:00→20:00)
[2019-03-31] MEDS ORDERED: hydrALAZINE 25 MG TAB ONE (13:57)
[2019-03-31] MEDS ORDERED: hydrALAZINE 25 MG TAB PO SCH (14:00)
[2019-03-31 14:16] VITALS: BP 142/76
--- NOTE | 2019-03-31 14:55 | Discharge Summary ---
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 Although she informed the ED this when I went to discuss with her the patient was visibly upset about some chaos she witnessed in the ED and states that that is what caused the chest pain she reports that she actually came to the hospital because for 2 days she was noticing what appeared to be worms coming out of her left breast. She says that when she looked at it it appears to be skin. On examination she did have areas on her left breast which appears to be excoriated and she states that that is what has been causing her pain. She denies any chest pain nausea vomiting or diarrhea she reports that her abdominal pain also seems from that that she had used toenail clipper to remove what she thought was warm out from that area. She states that she follows up closely with her base filler. And would like to be discharged home Patient was given nystatin powder and also prescription and also empiric antibiotic prescription. Atypical chest pain secondary to costochondritis from cellulitis Right breast cellulitis Disposition: DC/- HOME UNDER HOME HLTH Time spent for discharge: 35 mins Core Measure Documentation - Palliative Care Palliative Care/ Comfort Measures: Not Applicable - Core Measures Any of the following diagnoses?: none Exam - Physical Exam Narrative exam: VITAL SIGNS: Reviewed. GENERAL: The patient appears normally developed, Vital signs as documented. HEAD: No signs of head trauma. EYES: Pupils are equal. Extraocular motions intact. EARS: Hearing grossly intact. MOUTH: Oropharynx is normal. NECK: No adenopathy, no JVD. CHEST: Chest with clear breath sounds bilaterally. No wheezes, rales, or rhonchi. CARDIAC: Regular rate and rhythm. S1 and S2, without murmurs, gallops, or rubs. VASCULAR: No Edema. Peripheral pulses normal and equal in all extremities. ABDOMEN: Soft, non tender and non distended. No rebound or guarding, and no masses palpated. Bowel Sounds normal. MUSCULOSKELETAL: Good range of motion of all major joints. Extremities without clubbing, cyanosis or edema. NEUROLOGIC EXAM: Alert and oriented x 3 No focal sensory or strength deficits. Speech normal. Follows commands. PSYCHIATRIC: Mood normal. SKIN: Right breast cellulitic changes not profound. No warmth noted. Detial exam as documented in skin assessment - Constitutional Vitals: Temp Pulse Resp BP Pulse Ox 98.0 F 70 16 142/76 90 03/31/19 01:43 03/31/19 14:16 03/31/19 09:53 03/31/19 14:16 03/31/19 10:00 Plan Activity: advance as tolerated, fall precautions Diet: low fat Special Instructions: record daily weights, record daily BP diary, record blood sugar diary Follow up with: ANATOLY CIFUENTES MD [Staff Physician] - 7 Days PRIMARY CARE, [Primary Care Provider] - 7 Days Prescriptions: bisacodyL [Dulcolax tab] 10 mg PO QDAY PRN #30 tablet PRN Reason: Constipation bisacodyL [Dulcolax tab] 10 mg PO QDAY PRN #30 tablet PRN Reason: Constipation cephALEXin [Keflex] 500 mg PO BID #14 capsule cephALEXin [Keflex] 500 mg PO Q12HR #14 cap Nystatin [Nystop Powder] 1 applicatio TP TID #7 bottle Nystatin [Nystop Powder] 1 applicatio TP BID #1 bottle
[2019-03-31] MEDS ORDERED: NON-FORMULARY EACH (Rosuvastatin (Nf) 20 MG) PO SCH (22:00)
[2019-03-31] MEDS ORDERED: PHENYTOIN 100 MG CAPSULE.ER PO SCH (22:00)
== END 2019-03-31 16:40 | disposition home health service (06) ==
LOC: ED 01:10 → UNDOADMOB 06:13 → 4A 06:13 → ED 16:40 → 4A 16:50
DX: T14.8XXA Other injury of unspecified body region, initial encounter (principal); J44.9 Chronic obstructive pulmonary disease, unspecified; R07.9 Chest pain, unspecified; K59.00 Constipation, unspecified; I11.0 Hypertensive heart disease with heart failure; I50.9 Heart failure, unspecified; Z86.711 Personal history of pulmonary embolism; Z99.81 Dependence on supplemental oxygen; Z79.899 Other long term (current) drug therapy; Z88.8 Allergy status to other drugs, medicaments and biological substances; Z88.5 Allergy status to narcotic agent; X58.XXXA Exposure to other specified factors, initial encounter; Y93.89 Activity, other specified; Y92.89 Other specified places as the place of occurrence of the external cause; Y99.8 Other external cause status
CPT/HCPCS: 36415; 71045; 74176; 80053; 81001; 82271; 83690; 84484; 85025; 85610; 85730; 93005; 93010; 96374; 96375; 96376; 99285; J1885

== ENCOUNTER 2019-08-20 14:30 | Inpatient (IN) | payer MEDICARE ==
--- NOTE | 2019-08-20 15:25 | Event Note ---
ED Screening Note ED Screening Note: presents with cough, SOB, fever, diarrhea for two days went to urgent care had hypoxia, sent to ED PMHx CHF, HTN, CAD with stent placement no known sick contacts no recent travel no recent surgery allergy: morphine This initial assessment/diagnostic orders/clinical plan/treatment(s) is/are subject to change based on patients health status, clinical progression and re- assessment by fellow clinical providers in the ED. Further treatment and workup at subsequent clinical providers discretion. Patient/guardian urged not to elope from the ED as their condition may be serious if not clinically assessed and managed. Initial orders include: labs, EKG, CXR
[2019-08-20 16:12] LABS: Hematocrit 37.6 % (30.3-42.9); Hemoglobin 12.6 gm/dl (10.1-14.3); Mean Corpuscular HGB Conc 34 % (30-34); Mean Corpuscular Volume 98 fl (79-97); Platelet Count 235 K/mm3 (140-440); Red Blood Count 3.83 M/mm3 (3.65-5.03); Red Cell Distribution Width 13.7 % (13.2-15.2)
--- NOTE | 2019-08-20 16:22 | XRay Report ---
CHEST 1 VIEW INDICATION: SOB, fever, hypoxia COMPARISON: 03/31/2019 FINDINGS: SUPPORT DEVICES: None. HEART / MEDIASTINUM: No significant abnormality. LUNGS / PLEURA: No significant pulmonary or pleural abnormality. No pneumothorax. ADDITIONAL FINDINGS: IMPRESSION: 1. No acute cardiopulmonary disease Signer Name: Yogesh Ellis MD Signed: 08/20/2019 4:18 PM Workstation Name: [id number]
[2019-08-20 16:25] LABS: Alanine Aminotransferase 18 units/L (7-56); Albumin 4.4 g/dL (3.9-5); BUN/Creatinine Ratio 14; Blood Urea Nitrogen 7 mg/dL (7-17); Calcium 9.5 mg/dL (8.4-10.2); Hemolysis Index 5
[2019-08-20] MEDS ORDERED: dexAMETHasone 4 MG/ML VIAL IV ONE (16:54)
--- NOTE | 2019-08-20 16:55 | Emergency Department Report ---
ED General Adult HPI - General Chief complaint: Upper Respiratory Infection Stated complaint: SORE THROAT PUI?: No Time Seen by Provider: 08/20/19 16:25 Source: patient Mode of arrival: Ambulatory Limitations: No Limitations - History of Present Illness Initial comments: Patient is a 74-year-old female that presents emergency room with complaints of cough, fever, body aches x3 days. Patient states she went to her doctor's off ice today and was found to be hypoxic and sent to the emergency room for further evaluation. Patient denies shortness of breath. Patient denies chest pain. Patient complains of sore throat. Patient states her sore throat is a 6 out of 10. Patient states that the sore throat is better with rest and worse with swallowing. Patient has not been tested for COVID-19. Patient denies nausea vomiting. Patient denies loss of smell. Patient denies diarrhea. Patient denies abdominal pain. Patient denies recent travel. Patient denies recent international travel. Patient denies exposure to the novel coronavirus. Patient denies sick contacts. Patient denies diarrhea. -: Sudden Severity scale (0 -10): 6 Quality: aching Consistency: constant Improves with: rest Worsens with: other Associated Symptoms: cough, fever/chills, malaise. denies: confusion, chest pain, diaphoresis, headaches, loss of appetite, nausea/vomiting, rash, seizure, shortness of breath, syncope, weakness - Related Data Home Medications Medication Instructions Recorded Confirmed Last Taken levETIRAcetam 750 mg PO BID 05/25/14 09/25/16 09/24/16 Fluticasone [Flonase] 2 spray NS QDAY 08/12/14 09/25/16 05/13/16 Pantoprazole [Protonix TAB] 40 mg PO QDAY 08/12/14 09/25/16 09/24/16 Rosuvastatin (Nf) [Crestor] 20 mg PO QHS 08/12/14 09/25/16 09/24/16 Phenytoin [Dilantin] 300 mg PO QHS 09/08/14 09/25/16 09/23/16 Albuterol INH(or & Nicu Only) 2 puff IH QID PRN 09/24/16 09/25/16 Unknown [ProAir HFA Inhaler] Budesoni/Formotero 160-4.5(Nf) 2 puff IH BID 09/24/16 09/25/16 Unknown [Symbicort 160-4.5 (Nf)] Nitroglycerin [Nitrostat] 0.4 mg SL Q5M 09/24/16 09/25/16 Unknown Previous Rx's Medication Instructions Recorded Last Taken Type Escitalopram [Lexapro] 20 mg PO DAILY tablet 05/27/14 09/24/16 Rx Amlodipine Besylate [Norvasc] 10 mg PO DAILY 30 Days tablet 11/19/14 09/24/16 Rx Clopidogrel [Plavix] 75 mg PO QDAY #30 tablet 11/19/14 09/24/16 Rx ISOSORBIDE MONOnitrate [Imdur ER] 30 mg PO QDAY #30 tablet 11/19/14 09/24/16 Rx carvediloL [Coreg] 12.5 mg PO BID #60 tablet 11/19/14 09/24/16 Rx lisinopriL [Zestril TAB] 40 mg PO DAILY #30 tablet 11/19/14 09/24/16 Rx Acetaminophen [Acetaminophen TAB] 650 mg PO Q4H PRN #30 tablet 09/08/15 05/11/16 Rx Aspirin [Aspirin BABY CHEW TAB] 81 mg PO QDAY #30 tab.chew 05/17/16 09/24/16 Rx Losartan [Cozaar] 50 mg PO QDAY #30 tablet 09/26/16 Unknown Rx Ranolazine ER [Ranexa ER] 1,000 mg PO BID tablet 09/26/16 Unknown Rx hydrALAZINE [Apresoline TAB] 25 mg PO Q8HR #90 tablet 09/26/16 Unknown Rx Nystatin [Nystop Powder] 1 applicatio TP BID #1 bottle 03/31/19 Unknown Rx Nystatin [Nystop Powder] 1 applicatio TP TID #7 bottle 03/31/19 Unknown Rx bisacodyL [Dulcolax tab] 10 mg PO QDAY PRN #30 tablet 03/31/19 Unknown Rx bisacodyL [Dulcolax tab] 10 mg PO QDAY PRN #30 tablet 03/31/19 Unknown Rx cephALEXin [Keflex] 500 mg PO BID #14 capsule 03/31/19 Unknown Rx cephALEXin [Keflex] 500 mg PO Q12HR #14 cap 03/31/19 Unknown Rx Allergies Allergy/AdvReac Type Severity Reaction Status Date / Time morphine Allergy Severe hallucinati Verified 01/06/15 13:14 on ED Review of Systems ROS: Stated complaint: SORE THROAT Other details as noted in HPI Constitutional: chills, fever, malaise Eyes: denies: eye pain, eye discharge, vision change ENT: denies: ear pain, throat pain Respiratory: cough. denies: shortness of breath, wheezing Cardiovascular: denies: chest pain, palpitations Endocrine: no symptoms reported Gastrointestinal: denies: abdominal pain, nausea, vomiting, diarrhea Genitourinary: denies: urgency, dysuria, discharge Musculoskeletal: denies: back pain, joint swelling, arthralgia Skin: denies: rash, lesions Neurological: denies: headache, weakness, paresthesias Psychiatric: denies: anxiety, depression Hematological/Lymphatic: denies: easy bleeding, easy bruising ED Past Medical Hx - Past Medical History Previous Medical History?: Yes Hx Hypertension: Yes Hx Heart Attack/AMI: No Hx Congestive Heart Failure: Yes Hx Diabetes: No Hx Deep Vein Thrombosis: No Hx Pulmonary Embolism: Yes (2011) Hx Sickle Cell Disease: No Hx Arthritis: Yes Hx Seizures: Yes Hx Asthma: No Hx COPD: Yes (Home O2) Hx Tuberculosis: No Hx Dementia: No Hx HIV: No Additional medical history: Beneign Brain Tumor - Surgical History Past Surgical History?: Yes Hx Coronary Stent: Yes Hx Open Heart Surgery: No Hx Pacemaker: No Hx Internal Defibrillator: No Hx Cholecystectomy: Yes Hx Appendectomy: No Hx Breast Surgery: No Additional Surgical History: Brain Surgery x 2, Hysterectomy, [place], Hernia, Bowl Obstruction x 3, Back surgery. right hip surgery - Family History Family history: no significant - Social History Smoking Status: Former Smoker Substance Use Type: None - Medications Home Medications: Home Medications Medication Instructions Recorded Confirmed Last Taken Type levETIRAcetam 750 mg PO BID 05/25/14 09/25/16 09/24/16 History Escitalopram [Lexapro] 20 mg PO DAILY tablet 05/27/14 09/25/16 09/24/16 Rx Fluticasone [Flonase] 2 spray NS QDAY 08/12/14 09/25/16 05/13/16 History Pantoprazole [Protonix TAB] 40 mg PO QDAY 08/12/14 09/25/16 09/24/16 History Rosuvastatin (Nf) [Crestor] 20 mg PO QHS 08/12/14 09/25/16 09/24/16 History Phenytoin [Dilantin] 300 mg PO QHS 09/08/14 09/25/16 09/23/16 History Amlodipine Besylate [Norvasc] 10 mg PO DAILY 30 Days tablet 11/19/14 09/25/16 09/24/16 Rx Clopidogrel [Plavix] 75 mg PO QDAY #30 tablet 11/19/14 09/25/16 09/24/16 Rx ISOSORBIDE MONOnitrate [Imdur ER] 30 mg PO QDAY #30 tablet 11/19/14 09/25/16 09/24/16 Rx carvediloL [Coreg] 12.5 mg PO BID #60 tablet 11/19/14 09/25/16 09/24/16 Rx lisinopriL [Zestril TAB] 40 mg PO DAILY #30 tablet 11/19/14 09/25/16 09/24/16 Rx Acetaminophen [Acetaminophen TAB] 650 mg PO Q4H PRN #30 tablet 09/08/15 09/25/16 05/11/16 Rx Aspirin [Aspirin BABY CHEW TAB] 81 mg PO QDAY #30 tab.chew 05/17/16 09/25/16 09/24/16 Rx Albuterol INH(or & Nicu Only) 2 puff IH QID PRN 09/24/16 09/25/16 Unknown History [ProAir HFA Inhaler] Budesoni/Formotero 160-4.5(Nf) 2 puff IH BID 09/24/16 09/25/16 Unknown History [Symbicort 160-4.5 (Nf)] Nitroglycerin [Nitrostat] 0.4 mg SL Q5M 09/24/16 09/25/16 Unknown History Losartan [Cozaar] 50 mg PO QDAY #30 tablet 09/26/16 Unknown Rx Ranolazine ER [Ranexa ER] 1,000 mg PO BID tablet 09/26/16 Unknown Rx hydrALAZINE [Apresoline TAB] 25 mg PO Q8HR #90 tablet 09/26/16 Unknown Rx Nystatin [Nystop Powder] 1 applicatio TP BID #1 bottle 03/31/19 Unknown Rx Nystatin [Nystop Powder] 1 applicatio TP TID #7 bottle 03/31/19 Unknown Rx bisacodyL [Dulcolax tab] 10 mg PO QDAY PRN #30 tablet 03/31/19 Unknown Rx bisacodyL [Dulcolax tab] 10 mg PO QDAY PRN #30 tablet 03/31/19 Unknown Rx cephALEXin [Keflex] 500 mg PO BID #14 capsule 03/31/19 Unknown Rx cephALEXin [Keflex] 500 mg PO Q12HR #14 cap 03/31/19 Unknown Rx ED Physical Exam - General Limitations: No Limitations General appearance: alert, in no apparent distress - Head Head exam: Present: atraumatic, normocephalic - Eye Eye exam: Present: normal appearance - ENT ENT exam: Present: mucous membranes moist - Neck Neck exam: Present: normal inspection - Respiratory Respiratory exam: Present: decreased breath sounds - Cardiovascular Cardiovascular Exam: Present: regular rate, normal rhythm. Absent: systolic murmur, diastolic murmur, rubs, gallop - GI/Abdominal GI/Abdominal exam: Present: soft, normal bowel sounds - Extremities Exam Extremities exam: Present: normal inspection - Back Exam Back exam: Present: normal inspection - Neurological Exam Neurological exam: Present: alert, oriented X3 - Psychiatric Psychiatric exam: Present: normal affect, normal mood - Skin Skin exam: Present: warm, dry, intact, normal color. Absent: rash ED Course Vital Signs 08/20/19 08/20/19 08/20/19 15:23 15:42 16:00 Temperature 98.9 F Pulse Rate 66 Respiratory 16 13 Rate Blood Pressure Blood Pressure 159/69 [Left] O2 Sat by Pulse 88 100 99 Oximetry 08/20/19 08/20/19 08/20/19 16:30 17:00 17:30 Temperature Pulse Rate 63 58 L 57 L Respiratory 13 11 L 14 Rate Blood Pressure 130/71 149/62 158/65 Blood Pressure [Left] O2 Sat by Pulse 99 99 98 Oximetry 08/20/19 08/20/19 08/20/19 18:00 18:30 19:00 Temperature 99 F Pulse Rate 71 59 L 61 Respiratory 15 11 L 18 Rate Blood Pressure 138/58 152/69 170/84 Blood Pressure [Left] O2 Sat by Pulse 99 99 99 Oximetry 08/20/19 08/20/19 08/20/19 20:00 20:30 21:00 Temperature Pulse Rate 68 96 H 87 Respiratory 16 17 16 Rate Blood Pressure 170/84 170/84 170/84 Blood Pressure [Left] O2 Sat by Pulse 96 100 99 Oximetry 08/20/19 08/20/19 08/20/19 21:10 21:20 21:30 Temperature Pulse Rate 85 Respiratory 15 13 Rate Blood Pressure 170/84 170/84 170/84 Blood Pressure [Left] O2 Sat by Pulse 98 99 Oximetry 08/20/19 21:40 Temperature Pulse Rate 89 Respiratory Rate Blood Pressure 170/84 Blood Pressure [Left] O2 Sat by Pulse Oximetry - Reevaluation(s) Reevaluation #1: I discussed all results with patient. I discussed plan of care with patient. Patient agrees with plan of care and admission. Patient to be admitted to the hospitalist service. 08/20/19 16:52 - Consultations Consultation #1: Hospitalist consulted for admission. Hospitalist to admit patient. 08/20/19 16:53 Consultation #2: Infectious disease paged. 08/20/19 16:53 I discussed case with Dr. Crouch, infectious disease. Recommendations received from infectious disease and ordered in the system. Dr. Crouch recommends Solu- Medrol 40 mg every 8 hours, Rocephin 2 g IV daily, Zithromax 500 mg IV daily. 08/20/19 17:09 ED Medical Decision Making - Lab Data Result diagrams: 08/20/19 15:45 08/20/19 17:05 - EKG Data -: EKG Interpreted by Me EKG shows normal: sinus rhythm, axis, intervals, QRS complexes, ST-T waves Rate: normal - EKG Data Interpretation: [facility] - Radiology Data Radiology results: report reviewed, image reviewed interpreted by me: Bilateral pneumonia on chest x-ray - Medical Decision Making Patient is a 74-year-old female that presents emergency room with complaints of cough, fever and hypoxia. Patient states she was at her primary care's office as she was found to be hypoxic and was sent to the emergency room for further evaluation and patient had labs done which are essentially unremarkable except for low WBC. Patient had a chest x-ray done which is consistent with bilateral pneumonia. Infectious disease was consulted early in the ER stay for recommendations. COVID protocol placed in the system. Patient given steroids and antibiotics per Dr. Crouch recommendations. Patient was placed on oxygen per nasal cannula and her O2 sat improved. Patient is on 2 L at home but required 5-6 L. Patient admitted to the hospitalist service. - Differential Diagnosis COVID, fever, COPD, pneumonia, cough, hypoxia Critical Care Time: Yes Critical care time in (mins) excluding proc time.: 35 Critical care attestation.: If time is entered above; I have spent that time in minutes in the direct care of this critically ill patient, excluding procedure time. Critical Care Time: 35 minutes ED Disposition Clinical Impression: Suspected COVID-19 virus infection, Cough, Hypoxia, Person under investigation for COVID-19 Fever Qualifiers: Fever type: unspecified Qualified Code(s): R50.9 - Fever, unspecified Pneumonia Qualifiers: Pneumonia type: due to unspecified organism Laterality: bilateral Lung loca tion: unspecified part of lung Qualified Code(s): J18.9 - Pneumonia, unspecified organism COPD (chronic obstructive pulmonary disease) Qualifiers: COPD type: unspecified COPD Qualified Code(s): J44.9 - Chronic obstructive pulmonary disease, unspecified Disposition: OP ADMIT IP TO THIS HOSP Is pt being admited?: Yes Does the pt Need Aspirin: No Condition: Critical Time of Disposition: 17:15
[2019-08-20 16:58] LABS: Basophils % (Manual) 0 % (0.0-1.8); RBC Morphology Normal; Total Cells Counted 100
[2019-08-20] MEDS ORDERED: cefTRIAXone/NS 2 GM/100 ML 2 GM/100 ML BAG IV ONE ×2 (17:07→18:22)
[2019-08-20] MEDS ORDERED: AZITHROMYCIN 500 MG in SODIUM CHLORIDE 0.9% 250ML 250 ML IV ONE (17:07)
[2019-08-20] MEDS ORDERED: methylPREDNISolone Sod Succinate 40 MG/1 ML INJ IV ONE (17:08)
--- NOTE | 2019-08-20 17:19 | History and Physical Report ---
History of Present Illness Chief complaint: I have been feeling sick for the past several days History of present illness: 74 YO Female with HTN, CHF, PE not currently on therapeutic anticoagulation, OA, COPD, Chronic Respiratory Failure on Home Oxygen, Seizure disorder, CAD S/P Stent Placement presents to ED for evaluation. Pt states that she experienced dry cough, fever, body aches, malaise, generalized weakness over the past 3 days with persistently worsening symptoms over the same timeframe. Patient transpor venita to [facility] via private vehicle for further evaluation and care. Patient seen and evaluated in the emergency department. Lab and imaging studies reviewed. Patient found to have pulse oximetry of 89% on room air with exertion which is consistent with acute hypoxemic respiratory failure, as well as the aforementioned symptoms which are suspicious for COVID-19 infection. Patient initiated on COVID-19 protocol and admitted to medical floor. Infectious disease team consulted in ED. Advanced care planning conducted in ED. Patient denies chills, chest pain, palpitations, hemoptysis, syncope, trauma, falls, prolonged travel/immobility, unilateral leg swelling, calf pain, or recent ill contacts. Prior admission on 09/24/2016 reviewed. All medication listed at time of admission has been reconciled. Past History Past Medical History: arthritis, heart failure, hypertension, seizures, other (See HPI) Past Surgical History: cholecystectomy, hysterectomy, hernia repair, total hip replacement, bowel surgery, Other (Brain Surgery x2, Back surgery. ) Social history: single. denies: smoking, alcohol abuse Family history: hypertension Medications and Allergies Allergies Allergy/AdvReac Type Severity Reaction Status Date / Time morphine Allergy Severe hallucinati Verified 01/06/15 13:14 on Home Medications Medication Instructions Recorded Confirmed Last Taken Type levETIRAcetam 750 mg PO BID 05/25/14 09/25/16 09/24/16 History Escitalopram [Lexapro] 20 mg PO DAILY tablet 05/27/14 09/25/16 09/24/16 Rx Fluticasone [Flonase] 2 spray NS QDAY 08/12/14 09/25/16 05/13/16 History Pantoprazole [Protonix TAB] 40 mg PO QDAY 08/12/14 09/25/16 09/24/16 History Rosuvastatin (Nf) [Crestor] 20 mg PO QHS 08/12/14 09/25/16 09/24/16 History Phenytoin [Dilantin] 300 mg PO QHS 09/08/14 09/25/16 09/23/16 History Amlodipine Besylate [Norvasc] 10 mg PO DAILY 30 Days tablet 11/19/14 09/25/16 09/24/16 Rx Clopidogrel [Plavix] 75 mg PO QDAY #30 tablet 11/19/14 09/25/16 09/24/16 Rx ISOSORBIDE MONOnitrate [Imdur ER] 30 mg PO QDAY #30 tablet 11/19/14 09/25/16 09/24/16 Rx carvediloL [Coreg] 12.5 mg PO BID #60 tablet 11/19/14 09/25/16 09/24/16 Rx lisinopriL [Zestril TAB] 40 mg PO DAILY #30 tablet 11/19/14 09/25/16 09/24/16 Rx Acetaminophen [Acetaminophen TAB] 650 mg PO Q4H PRN #30 tablet 09/08/15 09/25/16 05/11/16 Rx Aspirin [Aspirin BABY CHEW TAB] 81 mg PO QDAY #30 tab.chew 05/17/16 09/25/16 09/24/16 Rx Albuterol INH(or & Nicu Only) 2 puff IH QID PRN 09/24/16 09/25/16 Unknown History [ProAir HFA Inhaler] Budesoni/Formotero 160-4.5(Nf) 2 puff IH BID 09/24/16 09/25/16 Unknown History [Symbicort 160-4.5 (Nf)] Nitroglycerin [Nitrostat] 0.4 mg SL Q5M 09/24/16 09/25/16 Unknown History Losartan [Cozaar] 50 mg PO QDAY #30 tablet 09/26/16 Unknown Rx Ranolazine ER [Ranexa ER] 1,000 mg PO BID tablet 09/26/16 Unknown Rx hydrALAZINE [Apresoline TAB] 25 mg PO Q8HR #90 tablet 09/26/16 Unknown Rx Nystatin [Nystop Powder] 1 applicatio TP BID #1 bottle 03/31/19 Unknown Rx Nystatin [Nystop Powder] 1 applicatio TP TID #7 bottle 03/31/19 Unknown Rx bisacodyL [Dulcolax tab] 10 mg PO QDAY PRN #30 tablet 03/31/19 Unknown Rx bisacodyL [Dulcolax tab] 10 mg PO QDAY PRN #30 tablet 03/31/19 Unknown Rx cephALEXin [Keflex] 500 mg PO BID #14 capsule 03/31/19 Unknown Rx cephALEXin [Keflex] 500 mg PO Q12HR #14 cap 03/31/19 Unknown Rx Active Meds: Active Medications Azithromycin 500 mg/ Sodium (Chloride) 250 mls @ 250 mls/hr IV ONCE ONE; Protocol Stop: 08/20/19 18:06 Ceftriaxone Sodium (Rocephin/Ns 2 Gm/100 Ml) 2 gm in 100 mls @ 200 mls/hr IV ONCE ONE; Protocol Stop: 08/20/19 17:36 Review of Systems Constitutional: fever, fatigue, weakness, malaise, lethargy Ears, nose, mouth and throat: no ear pain, no ear discharge, no tinnitis, no decreased hearing Breasts: no change in shape, no swelling, no mass Cardiovascular: no chest pain, no orthopnea, no palpitations Respiratory: cough, shortness of breath, no cough with sputum, no excessive sputum, no hemoptysis Gastrointestinal: no nausea, no vomiting, no diarrhea, no constipation Genitourinary Female: no pelvic pain, no flank pain, no dysuria Rectal: no pain, no incontinence, no bleeding Musculoskeletal: no neck stiffness, no neck pain, no shooting arm pain, no arm numbness/tingling, no low back pain Integumentary: no rash, no pruritis, no redness, no sores, no wounds Neurological: no paralysis, no weakness, no numbness, no tingling Psychiatric: no anxiety, no memory loss, no change in sleep habits, no sleep disturbances, no insomnia Endocrine: no cold intolerance, no heat intolerance, no excessive thirst, no nocturia, no excessive sweating Hematologic/Lymphatic: no easy bruising, no easy bleeding Allergic/Immunologic: no allergic rhinitis Exam - Constitutional Vitals: Temp Pulse Resp BP Pulse Ox 98.9 F 63 13 130/71 99 08/20/19 15:23 08/20/19 16:30 08/20/19 16:30 08/20/19 16:30 08/20/19 16:30 General appearance: Present: mild distress, obese - EENT Eyes: Present: PERRL ENT: hearing intact, clear oral mucosa - Neck Neck: Present: supple, normal ROM - Respiratory Respiratory effort: labored, accessory muscle use Respiratory: bilateral: diminished - Cardiovascular Heart Sounds: Present: S1 & S2. Absent: rub, click - Extremities Extremities: pulses symmetrical, No edema Peripheral Pulses: within normal limits - Abdominal General gastrointestinal: Present: soft, non-tender, non-distended, normal bowel sounds Female genitourinary: Present: normal - Integumentary Integumentary: Present: clear, warm, dry - Musculoskeletal Musculoskeletal: generalized weakness - Psychiatric Psychiatric: appropriate mood/affect, intact judgment & insight - Neurologic Neurologic: CNII-XII intact, moves all extremities HEART Score - HEART Score Troponin: Troponin T < 0.010 ng/mL (0.00-0.029) 08/20/19 15:45 Results - Labs CBC & Chem 7: 08/20/19 15:45 08/20/19 17:05 Labs: Abnormal lab results 08/20/19 08/20/19 Range/Units 15:45 15:45 WBC 2.1 L (4.5-11.0) K/mm3 MCV 98 H (79-97) fl MCH 33 H (28-32) pg Monocytes % (Manual) 26.0 H (0.0-7.3) % Seg Neutrophils # Man 0.9 L (1.8-7.7) K/mm3 Lymphocytes # (Manual) 0.7 L (1.2-5.4) K/mm3 Chloride 94.4 L (98-107) mmol/L Creatinine 0.5 L (0.7-1.2) mg/dL Assessment and Plan - Patient Problems (1) Acute and chronic respiratory failure Current Visit: Yes Status: Acute Qualifiers: Respiratory failure complication: hypoxia Qualified Code(s): J96.21 - Acute and chronic respiratory failure with hypoxia Plan to address problem: Supplemental oxygen, nebulizer therapy, pulse oximetry, chest x-ray, noninvasive positive pressure ventilation as clinically indicated (2) Obesity hypoventilation syndrome Current Visit: Yes Status: Acute Plan to address problem: Supplemental oxygen, pulse oximetry, nebulizer therapy with spacer, prone ventilation while in bed. (3) Seizure disorder Current Visit: Yes Status: Acute Plan to address problem: Continue antiepileptic therapy, supportive care. Continue Keppra, seizure precautions. (4) Person under investigation for COVID-19 Current Visit: Yes Status: Acute Plan to address problem: COVID-19 protocol initiated in ED: Infectious disease service consulted in ED, COVID-19 PCR sent in emergency department. (5) COPD (chronic obstructive pulmonary disease) Current Visit: Yes Status: Chronic Qualifiers: COPD type: unspecified COPD Qualified Code(s): J44.9 - Chronic obstructive pulmonary disease, unspecified Plan to address problem: Supplemental oxygen, pulse oximetry, supportive care. (6) DVT prophylaxis Current Visit: Yes Status: Acute Plan to address problem: SCD to bilateral lower extremities while in bed, prophylactic heparin. (7) Advance care planning Current Visit: Yes Status: Acute Plan to address problem: Disease education conducted, patient is full code, prognosis discussed with patient, patient acknowledges understanding and agreement with care plan, +30 minutes.
[2019-08-20] MEDS ORDERED: ACETAMINOPHEN 325 MG TAB PO PRN ×2 (17:47→17:48)
[2019-08-20] MEDS ORDERED: ONDANSETRON 4 MG/2 ML INJ IV PRN (17:47)
[2019-08-20 17:50] LABS: C-Reactive Protein 0.3 mg/dL (0.00-1.30)
[2019-08-20] MEDS ORDERED: methylPREDNISolone Sod Succinate 40 MG/1 ML INJ ONE (18:22)
[2019-08-20] MEDS ORDERED: NITROGLYCERIN 0.4 MG TAB SUBL SL PRN (18:23)
[2019-08-20] MEDS ORDERED: ONDANSETRON 4 MG/2 ML INJ ONE (18:23)
[2019-08-20] MEDS ORDERED: BUDESONIDE 0.5 MG/2 ML NEBU IH SCH (20:00)
[2019-08-20] MEDS: BUDESONIDE 0.5 MG/2 ML NEBU IH SCH (20:51)
[2019-08-20] MEDS: ARFORMOTEROL 15 MCG/2 ML NEBU IH SCH (20:51)
[2019-08-20] MEDS ORDERED: NON-FORMULARY EACH (Levetiracetam 750 MG) PO SCH (22:00)
[2019-08-20] MEDS ORDERED: NON-FORMULARY EACH (Budesoni/Formotero 160-4.5(Nf) 2 PUFF) IH SCH (22:00)
[2019-08-20] MEDS ORDERED: NON-FORMULARY EACH (Rosuvastatin (Nf) 20 MG) PO SCH (22:00)
[2019-08-20] MEDS: levETIRAcetam 500 MG TAB PO SCH (23:30)
[2019-08-20] MEDS: PHENYTOIN 100 MG CAPSULE.ER PO SCH (23:30)
[2019-08-20] MEDS: HEPARIN 5,000 UNIT/1 ML VIAL SUB-Q SCH (23:31)
[2019-08-20] MEDS: hydrALAZINE 25 MG TAB PO SCH (23:31)
[2019-08-20] MEDS: carvediloL 12.5 MG TAB PO SCH (23:32)
[2019-08-20] MEDS: RANOLAZINE ER 500 MG TAB 12HR PO SCH (23:32)
[2019-08-20] MEDS: NYSTATIN POWDER 15 GM TP SCH (23:34)
[2019-08-21] MEDS: hydrALAZINE 25 MG TAB PO SCH ×3 (05:52→21:55)
[2019-08-21 06:17] LABS: Basophils % (Auto) 0.5 % (0.0-1.8); Eosinophils % (Auto) 0.6 % (0.0-4.3); Lymphocytes # (Auto) 0.9 K/mm3 (1.2-5.4); Mean Corpuscular HGB Conc 33 % (30-34); Mean Corpuscular Volume 97 fl (79-97); Monocytes # (Auto) 0.2 K/mm3 (0.0-0.8); Monocytes % (Auto) 4.6 % (0.0-7.3); Platelet Count 224 K/mm3 (140-440); Red Blood Count 3.73 M/mm3 (3.65-5.03); Red Cell Distribution Width 13.3 % (13.2-15.2)
[2019-08-21 06:30] LABS: BUN/Creatinine Ratio 15; Blood Urea Nitrogen 9 mg/dL (7-17); Hemolysis Index 73
[2019-08-21] MEDS: BUDESONIDE 0.5 MG/2 ML NEBU IH SCH ×2 (09:18→22:21)
[2019-08-21] MEDS: ARFORMOTEROL 15 MCG/2 ML NEBU IH SCH ×2 (09:19→22:21)
[2019-08-21] MEDS: ESCITALOPRAM 10 MG TAB PO SCH (09:26)
[2019-08-21] MEDS: PANTOPRAZOLE 40 MG TAB PO SCH (09:31)
[2019-08-21] MEDS: ASPIRIN 81 MG TAB CHEW PO SCH (09:31)
[2019-08-21] MEDS: carvediloL 12.5 MG TAB PO SCH ×2 (09:31→21:53)
[2019-08-21] MEDS: LOSARTAN 50 MG TAB PO SCH (09:31)
[2019-08-21] MEDS: LISINOPRIL 40 MG TAB PO SCH (09:31)
[2019-08-21] MEDS: amLODIPine 10 MG TAB PO SCH (09:31)
[2019-08-21] MEDS: HEPARIN 5,000 UNIT/1 ML VIAL SUB-Q SCH (09:32)
[2019-08-21] MEDS: levETIRAcetam 500 MG TAB PO SCH ×2 (09:32→21:54)
[2019-08-21] MEDS: RANOLAZINE ER 500 MG TAB 12HR PO SCH ×2 (09:35→21:49)
[2019-08-21] MEDS: NITROGLYCERIN 0.4 MG TAB SUBL SL SCH ×3 (09:40→13:10)
[2019-08-21] MEDS ORDERED: NON-FORMULARY EACH (Amlodipine Besylate [Norvasc] 10 MG) PO SCH (10:00)
[2019-08-21] MEDS ORDERED: CLOPIDOGREL 75 MG TAB PO SCH (10:00)
--- NOTE | 2019-08-21 10:25 | Consultation ---
History of Present Illness - Reason for Consult Consult date: 08/21/19 r/o covid Requesting physician: GURMEET CHAVIS III - History of Present Illness 74 years old female with history of COPD on home oxygen 2 L, hypertension, CHF, previous PE, seizure disorder, CAD status post stent, admitted on 08/20/2019 due to worsening shortness of breath, cough, body aches, malaise, generalized weakness for 3 days. Patient reports that she was tested for COVID-19 2 months ago and she was negative. She was taken to an urgent care facility where her O2 sat was found down to 87%. On arrival, temperature 98.9, HR 66, RR 16, O2 sat 88%, BP 159/67. Initial WBC 2.1. D-dimer 190. Ferritin 103. CRP 0.3. LDH 174. Chest x-ray without any infiltrates. COVID-19 test positive. Review of Systems: positive in bold print General: fever, chills, malaise Cutaneous: rash, pruritus Head: headaches or injury Eyes: changes in vision, eye pain, double vision Ears: ear pain, ear discharge, ringing or hearing loss Nose: nose bleeding, stuffiness Mouth & throat: bleeding gums, horseness, no dental problems, or swollen glands Neck: no pain, node enlargement/lumps, tyroid enlargement or tenderness Respiratory: SOB, cough, CHASE, wheezing, sputum, hemoptysis, pleuritic chest pain Cardiovascular: chest pain, leg edema, cyanosis, CHASE, orthopnea Musculoskeletal: edema, deformities, pain Gastrointestinal: nausea, vomiting, hematemesis, diarrhea, constipation, melena, bright red blood in stools, fecal incontinence, jaundice Genitourinary/Reproductive: frequent urination, dysuria, hematuria, incontinence Neurogical: seizures, headaches, weakness, paresthesias, loss of speech or vision; memory loss, vertigo, tremors, numbness Psychiatric: stable mood; excessive anxiety, sadness or moodiness Past History Past Medical History: arthritis, heart failure, hypertension, seizures, other (See HPI) Past Surgical History: cholecystectomy, hysterectomy, hernia repair, total hip replacement, bowel surgery, Other (Brain Surgery x2, Back surgery. ) Social history: single. denies: smoking, alcohol abuse Family history: hypertension Medications and Allergies Allergies Allergy/AdvReac Type Severity Reaction Status Date / Time morphine Allergy Severe hallucinati Verified 01/06/15 13:14 on Home Medications Medication Instructions Recorded Confirmed Last Taken Type levETIRAcetam 750 mg PO BID 05/25/14 08/21/19 09/24/16 History Escitalopram [Lexapro] 20 mg PO DAILY tablet 05/27/14 08/21/19 09/24/16 Rx Fluticasone [Flonase] 2 spray NS QDAY 08/12/14 08/21/19 05/13/16 History Pantoprazole [Protonix TAB] 40 mg PO QDAY 08/12/14 08/21/19 09/24/16 History Rosuvastatin (Nf) [Crestor] 20 mg PO QHS 08/12/14 08/21/19 09/24/16 History Phenytoin [Dilantin] 300 mg PO QHS 09/08/14 08/21/19 09/23/16 History Amlodipine Besylate [Norvasc] 10 mg PO DAILY 30 Days tablet 11/19/14 08/21/19 09/24/16 Rx ISOSORBIDE MONOnitrate [Imdur ER] 30 mg PO QDAY #30 tablet 11/19/14 08/21/19 09/24/16 Rx carvediloL [Coreg] 12.5 mg PO BID #60 tablet 11/19/14 08/21/19 09/24/16 Rx lisinopriL [Zestril TAB] 40 mg PO DAILY #30 tablet 11/19/14 08/21/19 09/24/16 Rx Acetaminophen [Acetaminophen TAB] 650 mg PO Q4H PRN #30 tablet 09/08/15 08/21/19 05/11/16 Rx Aspirin [Aspirin BABY CHEW TAB] 81 mg PO QDAY #30 tab.chew 05/17/16 08/21/19 09/24/16 Rx Albuterol INH(or & Nicu Only) 2 puff IH QID PRN 09/24/16 08/21/19 Unknown History [ProAir HFA Inhaler] Budesoni/Formotero 160-4.5(Nf) 2 puff IH BID 09/24/16 08/21/19 Unknown History [Symbicort 160-4.5 (Nf)] Nitroglycerin [Nitrostat] 0.4 mg SL Q5M 09/24/16 08/21/19 Unknown History Losartan [Cozaar] 50 mg PO QDAY #30 tablet 09/26/16 08/21/19 Unknown Rx Ranolazine ER [Ranexa ER] 1,000 mg PO BID tablet 09/26/16 08/21/19 Unknown Rx hydrALAZINE [Apresoline TAB] 25 mg PO Q8HR #90 tablet 09/26/16 08/21/19 Unknown Rx Nystatin [Nystop Powder] 1 applicatio TP BID #1 bottle 03/31/19 08/21/19 Unknown Rx Nystatin [Nystop Powder] 1 applicatio TP TID #7 bottle 03/31/19 08/21/19 Unknown Rx bisacodyL [Dulcolax tab] 10 mg PO QDAY PRN #30 tablet 03/31/19 08/21/19 Unknown Rx bisacodyL [Dulcolax tab] 10 mg PO QDAY PRN #30 tablet 03/31/19 08/21/19 Unknown Rx cephALEXin [Keflex] 500 mg PO BID #14 capsule 03/31/19 08/21/19 Unknown Rx cephALEXin [Keflex] 500 mg PO Q12HR #14 cap 03/31/19 08/21/19 Unknown Rx Apixaban [Eliquis] 5 mg PO Q12H 08/21/19 08/21/19 Unknown History carBAMazepine [TEGretol] 200 mg PO Q12HR 08/21/19 08/21/19 Unknown History Active Meds: Active Medications Acetaminophen (Tylenol) 650 mg PO Q4H PRN PRN Reason: Pain MILD(1-3)/Fever >100.5/FERRER Amlodipine Besylate (Amlodipine) 10 mg PO DAILY [facility] Last Admin: 08/21/19 09:31 Dose: 10 mg Documented by: Arformoterol Tartrate (Brovana Nebu) 15 mcg IH Q12HRT [facility] Last Admin: 08/21/19 09:19 Dose: 15 mcg Documented by: Aspirin (Baby Aspirin) 81 mg PO QDAY [facility] Last Admin: 08/21/19 09:31 Dose: 81 mg Documented by: Atorvastatin Calcium (Lipitor) 40 mg PO QHS [facility] Last Admin: 08/20/19 23:30 Dose: 40 mg Documented by: Bisacodyl (Dulcolax) 10 mg PO QDAY PRN PRN Reason: Constipation Budesonide (Pulmicort) 0.5 mg IH Q12HRT [facility] Last Admin: 08/21/19 09:18 Dose: 0.5 mg Documented by: Carvedilol (Coreg) 12.5 mg PO BID [facility] Last Admin: 08/21/19 09:31 Dose: 12.5 mg Documented by: Clopidogrel Bisulfate (Plavix) 75 mg PO QDAY [facility] Last Admin: 08/21/19 09:31 Dose: 75 mg Documented by: Escitalopram Oxalate (Lexapro) 20 mg PO DAILY [facility] Last Admin: 08/21/19 09:26 Dose: 20 mg Documented by: Fluticasone Propionate (Flonase) 100 mcg NS QDAY [facility] Heparin Sodium (Porcine) (Heparin) 5,000 unit SUB-Q Q12HR [facility] Last Admin: 08/21/19 09:32 Dose: 5,000 unit Documented by: Hydralazine HCl (Apresoline) 25 mg PO Q8HR [facility] Last Admin: 08/21/19 05:52 Dose: 25 mg Documented by: Isosorbide Mononitrate (Imdur) 30 mg PO QDAY [facility] Last Admin: 08/21/19 09:31 Dose: 30 mg Documented by: Levetiracetam (Keppra) 750 mg PO BID [facility] Last Admin: 08/21/19 09:32 Dose: 750 mg Documented by: Lisinopril (Zestril) 40 mg PO DAILY [facility] Last Admin: 08/21/19 09:31 Dose: 40 mg Documented by: Losartan Potassium (Cozaar) 50 mg PO QDAY [facility] Last Admin: 08/21/19 09:31 Dose: 50 mg Documented by: Nitroglycerin (Nitrostat) 0.4 mg SL Q5M PRN PRN Reason: Chest Pain Nystatin (Nystop) 1 applic TP BID [facility] Last Admin: 08/20/19 23:34 Dose: 1 applic Documented by: Ondansetron HCl (Zofran) 4 mg IV Q8H PRN PRN Reason: Nausea And Vomiting Pantoprazole Sodium (Protonix) 40 mg PO QDAY [facility] Last Admin: 08/21/19 09:31 Dose: 40 mg Documented by: Phenytoin (Dilantin) 300 mg PO QHS [facility] Last Admin: 06/25/20 23:30 Dose: 300 mg Documented by: Ranolazine (Ranexa Er) 1,000 mg PO BID [facility] Last Admin: 08/21/19 09:35 Dose: 1,000 mg Documented by: Sodium Chloride (Sodium Chloride Flush Syringe 10 Ml) 10 ml IV BID [facility] Last Admin: 08/21/19 09:32 Dose: 10 ml Documented by: Sodium Chloride (Sodium Chloride Flush Syringe 10 Ml) 10 ml IV PRN PRN PRN Reason: LINE FLUSH Physical Examination - Physical Exam Narrative exam: Physical exam limited for conservation of PPE General appearance: Alert in NAD Eyes: anicteric sclerae, moist conjunctivae; no lid-lag; PERRLA HENT: Atraumatic; oropharynx c limited Lungs: Limited CV: Limited Abdomen: Soft Extremities: no edema, no cyanosis Skin: No rash. Psych: Appropriate affect, alert and oriented to person, place and time. Neuro: alert and oriented x 3. Moving all extermities - Constitutional Vitals: Vital Signs Temp Pulse Resp BP Pulse Ox 97.7 F 57 L 18 141/60 96 08/21/19 05:10 08/21/19 05:52 08/21/19 05:10 08/21/19 05:52 08/21/19 05:10 Temperature -Last 24 Hours Temperature 97.7 F Temperature 99 F Temperature 98.9 F Results - Labs CBC & Chem 7: 08/21/19 05:55 08/21/19 05:55 Labs: Abnormal lab results 08/20/19 08/20/19 08/21/19 Range/Units 15:45 15:45 05:55 WBC 2.1 L 3.3 L (4.5-11.0) K/mm3 MCV 98 H (79-97) fl MCH 33 H (28-32) pg Lymph # 0.9 L (1.2-5.4) K/mm3 Monocytes % (Manual) 26.0 H (0.0-7.3) % Seg Neutrophils # Man 0.9 L (1.8-7.7) K/mm3 Lymphocytes # (Manual) 0.7 L (1.2-5.4) K/mm3 Chloride 94.4 L (98-107) mmol/L Carbon Dioxide (22-30) mmol/L Creatinine 0.5 L (0.7-1.2) mg/dL Glucose (65-100) mg/dL 08/21/19 Range/Units 05:55 WBC (4.5-11.0) K/mm3 MCV (79-97) fl MCH (28-32) pg Lymph # (1.2-5.4) K/mm3 Monocytes % (Manual) (0.0-7.3) % Seg Neutrophils # Man (1.8-7.7) K/mm3 Lymphocytes # (Manual) (1.2-5.4) K/mm3 Chloride 96.0 L (98-107) mmol/L Carbon Dioxide 31 H (22-30) mmol/L Creatinine 0.6 L (0.7-1.2) mg/dL Glucose 126 H (65-100) mg/dL Assessment and Plan Cultures: Blood cultures no growth today Assessment: 74 years old female with history of COPD on home oxygen 2 L, hypertension, CHF, previous PE, seizure disorder, CAD status post stent, admitted on 08/20/2019 due to worsening shortness of breath, cough, body aches, malaise, generalized weakness for 3 days: COVID-19 infection: Likely viremic COVID-19 infection phase. Admission O2 sat down to 89% on room air. Chest x-ray clear. Inflammatory markers all normal. Currently there is no evidence of cytokine storm. COPD exacerbation: Likely triggered by COVID-19 infection. Neutropenia: Likely from COVID-19 infection. Recommendations: Start dexamethasone 6 mg IV/po daily total 10 days Continues pulse ox Repeat chest x-ray If hypoxemia drainage more than 2 L NC oxygen will start Remdesivir 200 mg IV x1 followed by 100 mg IV daily for x4 Daily inflammatory markers If ferritin goes above 500, will consider Tocilizumab Start vitamin C, vitamin D and zinc Guarded prognosis given comorbidities Will follow. Bridget Davila MD Infectious Diseases [facility] ([facility] M [phone] O [phone]
[2019-08-21] MEDS: FLUTICASONE PROPIONATE NASAL SPRAY 16 GM NS SCH (11:52)
[2019-08-21] MEDS: NYSTATIN POWDER 15 GM TP SCH ×2 (11:52→21:49)
[2019-08-21] MEDS: APIXABAN 5 MG TAB PO SCH ×2 (12:07→23:53)
[2019-08-21] MEDS: carBAMazepine 200 MG TAB PO SCH ×2 (12:08→21:54)
--- NOTE | 2019-08-21 14:56 | Progress Note ---
Assessment and Plan / Acute on chronic respiratory failure Likely due to underlying COPD and COVID-19 pneumonia Continue supplemental oxygen, nebulizer therapy, pulse oximetry, noninvasive positive pressure ventilation as clinically indicated Patient started on dexamethasone for 10 days for positive COVID-19 / COVID-19 PNA COVID-19 protocol initiated in ED: Infectious disease service consulted in ED, COVID-19 PCR sent in emergency department. Continue to follow inflammatory marker, ID started on dexamethasone for 10 days If oxygen requirement increases will start on Remdesivir / COPD (chronic obstructive pulmonary disease) exacerbation Continue supplemental oxygen, schedule neb, dexamethasone Monitor pulse oximetry, continue supportive care. / Seizure disorder Continue antiepileptic therapy, supportive care. Continue Keppra, seizure preca utions. / CAD with h/o PCI Cardiac diet, continue cardiac meds No complaints of chest pain / CHFrEf 35 to 40%, chronic SCD to bilateral lower extremities while in bed, prophylactic heparin. Daily weight, strictly monitor ins and O's, continue cardiac medications Chest x-ray without any pulmonary edema, patient appears compensated - Advance care planning Disease education conducted, patient is full code, prognosis discussed with patient, patient acknowledges understanding and agreement with care plan, +30 minutes. - DVT prophylaxis SCD to bilateral lower extremities while in bed, prophylactic heparin. 08/20: Positive for COVID-19, continue to follow inflammatory marker, initiate steroid, follow ID recommendation. Start dexamethasone 6 mg IV/po daily total 10 days. Repeat chest x-ray in the am. If hypoxemia worsen and need more than 2 L NC oxygen will start Remdesivir 200 mg IV x1 followed by 100 mg IV daily for x4 Brief history: 74 YO Female with HTN, CHF, OA, COPD, Chronic Respiratory Failure on Home Oxygen, Seizure disorder, CAD S/P Stent Placement presents to ED for dry cough, fever, body aches, malaise, generalized weakness over the past 3 days. Patient found to have pulse oximetry of 89% on room air with exertion which is consistent with acute hypoxemic respiratory failure, possible COVID-19 infection. Patient initiated on COVID-19 protocol and admitted to medical floor. Infectious disease team consulted in ED. Subjective Date of service: 08/21/19 Interval history: Patient seen and examined. Medical records and medication list reviewed. No acute event overnight noted by the RN. Patient denies any chest pain but complains of difficulty breathing on exertion. Patient is tolerating diet. Discussed plan of care at bedside with patient. Objective - Exam Narrative Exam: GENERAL: well-developed and well-nourished elderly female lying on bed appeared to be in mild discomfort. HEENT: Normocephalic. Atraumatic. No conjunctival congestion or icterus. Patient has moist mucous membranes. NECK: Supple. Trachea midline. CHEST/LUNGS: Diminished breath sound auscultated bilaterally, breathing nonlabored. No wheezes crackles or rhonchi. HEART/CARDIOVASCULAR: Regular in rate and rhythm. S1 and S2 positive. ABDOMEN: Abdomen is soft, nontender. Patient has normal bowel sounds. SKIN: There is no rash. Warm and dry. NEURO: No focal motor deficit. Follows command. MUSCULOSKELETAL: No joint effusion or tenderness. EXTRIMITY: No edema, no cyanosis or clubbing. PSYCH: Cooperative. - Constitutional Vitals: Vital Signs - 12hr 08/21/19 08/21/19 08/21/19 05:10 05:52 11:45 Temperature 97.7 F 98.5 F Pulse Rate 57 L 57 L 62 Respiratory 18 18 Rate Blood Pressure 141/58 141/60 111/54 O2 Sat by Pulse 96 94 Oximetry - Labs CBC & Chem 7: 08/21/19 05:55 08/22/19 13:55 Labs: Abnormal lab results 08/20/19 08/20/19 08/20/19 Range/Units 15:45 15:45 Unknown WBC 2.1 L (4.5-11.0) K/mm3 MCV 98 H (79-97) fl MCH 33 H (28-32) pg Lymph # (1.2-5.4) K/mm3 Monocytes % (Manual) 26.0 H (0.0-7.3) % Seg Neutrophils # Man 0.9 L (1.8-7.7) K/mm3 Lymphocytes # (Manual) 0.7 L (1.2-5.4) K/mm3 Chloride 94.4 L (98-107) mmol/L Carbon Dioxide (22-30) mmol/L Creatinine 0.5 L (0.7-1.2) mg/dL Glucose (65-100) mg/dL Coronavirus (PCR) Positive A (Negative) 08/21/19 08/21/19 Range/Units 05:55 05:55 WBC 3.3 L (4.5-11.0) K/mm3 MCV (79-97) fl MCH (28-32) pg Lymph # 0.9 L (1.2-5.4) K/mm3 Monocytes % (Manual) (0.0-7.3) % Seg Neutrophils # Man (1.8-7.7) K/mm3 Lymphocytes # (Manual) (1.2-5.4) K/mm3 Chloride 96.0 L (98-107) mmol/L Carbon Dioxide 31 H (22-30) mmol/L Creatinine 0.6 L (0.7-1.2) mg/dL Glucose 126 H (65-100) mg/dL Coronavirus (PCR) (Negative) HEART Score - HEART Score Troponin: Troponin T < 0.010 ng/mL (0.00-0.029) 08/20/19 15:45
--- NOTE | 2019-08-21 18:59 | XRay Report ---
CHEST 1 VIEW INDICATION / CLINICAL INFORMATION: eval for infiltrares. COMPARISON: 08/20/2019 at 1544 hours, 03/31/2019 FINDINGS: SUPPORT DEVICES: None. HEART / MEDIASTINUM: No significant abnormality. LUNGS / PLEURA: No significant pulmonary or pleural abnormality. No pneumothorax. ADDITIONAL FINDINGS: No significant additional findings. IMPRESSION: 1. No acute findings. No interval change. Signer Name: Renée Madison MD Signed: 08/21/2019 6:55 PM Workstation Name: [id number]
[2019-08-21] MEDS: PHENYTOIN 100 MG CAPSULE.ER PO SCH (21:50)
[2019-08-22] MEDS: hydrALAZINE 25 MG TAB PO SCH ×2 (06:16→16:45)
[2019-08-22] MEDS: ARFORMOTEROL 15 MCG/2 ML NEBU IH SCH ×2 (08:00→21:05)
[2019-08-22] MEDS: BUDESONIDE 0.5 MG/2 ML NEBU IH SCH ×2 (08:00→21:05)
[2019-08-22] MEDS: FLUTICASONE PROPIONATE NASAL SPRAY 16 GM NS SCH (09:35)
[2019-08-22] MEDS: levETIRAcetam 500 MG TAB PO SCH ×2 (09:35→21:50)
[2019-08-22] MEDS: LOSARTAN 50 MG TAB PO SCH (09:35)
[2019-08-22] MEDS: PANTOPRAZOLE 40 MG TAB PO SCH (09:35)
[2019-08-22] MEDS: amLODIPine 10 MG TAB PO SCH (09:35)
[2019-08-22] MEDS: carBAMazepine 200 MG TAB PO SCH ×2 (09:35→21:50)
[2019-08-22] MEDS: ASPIRIN 81 MG TAB CHEW PO SCH (09:36)
[2019-08-22] MEDS: RANOLAZINE ER 500 MG TAB 12HR PO SCH ×2 (09:36→21:50)
[2019-08-22] MEDS: DEXAMETHASONE 2 MG TAB PO SCH (09:36)
[2019-08-22] MEDS: ESCITALOPRAM 10 MG TAB PO SCH (09:36)
[2019-08-22] MEDS: NYSTATIN POWDER 15 GM TP SCH ×2 (09:37→23:02)
[2019-08-22] MEDS: carvediloL 12.5 MG TAB PO SCH ×2 (09:38→23:00)
[2019-08-22] MEDS: LISINOPRIL 40 MG TAB PO SCH (09:38)
[2019-08-22] MEDS: APIXABAN 5 MG TAB PO SCH (11:54)
[2019-08-22 14:36] LABS: C-Reactive Protein 0.2 mg/dL (0.00-1.30)
[2019-08-22] MEDS: PHENYTOIN 100 MG CAPSULE.ER PO SCH (21:51)
[2019-08-23] MEDS: APIXABAN 5 MG TAB PO SCH ×2 (02:54→14:02)
[2019-08-23] MEDS: hydrALAZINE 25 MG TAB PO SCH ×3 (06:09→14:04)
[2019-08-23] MEDS: BUDESONIDE 0.5 MG/2 ML NEBU IH SCH (07:48)
[2019-08-23] MEDS: ARFORMOTEROL 15 MCG/2 ML NEBU IH SCH (07:48)
--- NOTE | 2019-08-23 09:34 | Progress Note ---
Assessment and Plan / Acute on chronic respiratory failure Likely due to underlying COPD and COVID-19 pneumonia Continue supplemental oxygen, nebulizer therapy, pulse oximetry, noninvasive positive pressure ventilation as clinically indicated Patient started on dexamethasone for 10 days for positive COVID-19 / COVID-19 PNA COVID-19 protocol initiated in ED: Infectious disease service consulted in ED, COVID-19 PCR sent in emergency department. Continue to follow inflammatory marker, ID started on dexamethasone for 10 days If oxygen requirement increases will start on Remdesivir / COPD (chronic obstructive pulmonary disease) exacerbation Continue supplemental oxygen, schedule neb, dexamethasone Monitor pulse oximetry, continue supportive care. / Seizure disorder Continue antiepileptic therapy, supportive care. Continue Keppra, seizure preca utions. / CAD with h/o PCI Cardiac diet, continue cardiac meds No complaints of chest pain / CHFrEf 35 to 40%, chronic SCD to bilateral lower extremities while in bed, prophylactic heparin. Daily weight, strictly monitor ins and O's, continue cardiac medications Chest x-ray without any pulmonary edema, patient appears compensated - Advance care planning Disease education conducted, patient is full code, prognosis discussed with patient, patient acknowledges understanding and agreement with care plan, +30 minutes. - DVT prophylaxis SCD to bilateral lower extremities while in bed, prophylactic heparin. 08/20: Positive for COVID-19, continue to follow inflammatory marker, initiate steroid, follow ID recommendation. Start dexamethasone 6 mg IV/po daily total 10 days. Repeat chest x-ray in the am. If hypoxemia worsen and need more than 2 L NC oxygen will start Remdesivir 200 mg IV x1 followed by 100 mg IV daily for x 4 08/21: cont to follow inflammatory markers, so far Patient remains stable. O2 requirement remains at 2L. cont dexamethasone. follow ID recommendation. if remains clinically stable possible d/c tomorrow Brief history: 74 YO Female with HTN, CHF, PE not currently on therapeutic anticoagulation, OA, COPD, Chronic Respiratory Failure on Home Oxygen, Seizure disorder, CAD S/P Stent Placement presents to ED for dry cough, fever, body aches, malaise, generalized weakness over the past 3 days. Patient found to have pulse oximetry of 89% on room air with exertion which is consistent with acute hypoxemic respiratory failure, possible COVID-19 infection. Patient initiated on COVID-19 protocol and admitted to medical floor. Infectious disease team consulted in ED. Subjective Date of service: 08/22/19 Interval history: Patient seen and examined. Medical records and medication list reviewed. No acute event overnight noted by the RN. Patient denies any chest pain, states breathing on exertion has improved Discussed plan of care at bedside with patient. Objective - Exam Narrative Exam: GENERAL: well-developed and well-nourished elderly female lying on bed appeared to be in mild discomfort. HEENT: Normocephalic. Atraumatic. No conjunctival congestion or icterus. Patient has moist mucous membranes. NECK: Supple. Trachea midline. CHEST/LUNGS: Diminished breath sound auscultated bilaterally, breathing nonlabored. No wheezes crackles or rhonchi. HEART/CARDIOVASCULAR: Regular in rate and rhythm. S1 and S2 positive. ABDOMEN: Abdomen is soft, nontender. Patient has normal bowel sounds. SKIN: There is no rash. Warm and dry. NEURO: No focal motor deficit. Follows command. MUSCULOSKELETAL: No joint effusion or tenderness. EXTRIMITY: No edema, no cyanosis or clubbing. PSYCH: Cooperative. - Constitutional Vitals: Vital Signs - 12hr 08/22/19 08/22/19 08/23/19 21:38 23:00 05:17 Temperature 98.7 F 97.5 F L Pulse Rate 63 80 58 L Pulse Rate [ Bilateral] Respiratory 18 18 Rate Respiratory Rate [Bilateral ] Blood Pressure 132/57 118/84 117/44 O2 Sat by Pulse 97 98 Oximetry 08/23/19 08/23/19 08/23/19 06:09 06:10 07:14 Temperature Pulse Rate 58 L 58 L Pulse Rate [ Bilateral] Respiratory 18 Rate Respiratory Rate [Bilateral ] Blood Pressure 117/44 117/44 O2 Sat by Pulse Oximetry 08/23/19 07:50 Temperature Pulse Rate Pulse Rate [ 61 Bilateral] Respiratory Rate Respiratory 16 Rate [Bilateral ] Blood Pressure O2 Sat by Pulse 98 Oximetry - Labs CBC & Chem 7: 08/21/19 05:55 08/22/19 13:55 Labs: Abnormal lab results 08/22/19 Range/Units 13:55 Glucose 181 H (65-100) mg/dL HEART Score - HEART Score Troponin: Troponin T < 0.010 ng/mL (0.00-0.029) 08/20/19 15:45
[2019-08-23] MEDS ORDERED: FUROSEMIDE 20 MG TAB PO SCH (10:00)
[2019-08-23] MEDS: PANTOPRAZOLE 40 MG TAB PO SCH (11:08)
[2019-08-23] MEDS: RANOLAZINE ER 500 MG TAB 12HR PO SCH (11:08)
[2019-08-23] MEDS: carBAMazepine 200 MG TAB PO SCH (11:09)
[2019-08-23] MEDS: ESCITALOPRAM 10 MG TAB PO SCH (11:09)
[2019-08-23] MEDS: levETIRAcetam 500 MG TAB PO SCH (11:13)
[2019-08-23] MEDS: amLODIPine 10 MG TAB PO SCH ×2 (11:14→14:12)
[2019-08-23] MEDS: DEXAMETHASONE 2 MG TAB PO SCH (11:16)
[2019-08-23] MEDS: FLUTICASONE PROPIONATE NASAL SPRAY 16 GM NS SCH (11:20)
[2019-08-23] MEDS: ASPIRIN 81 MG TAB CHEW PO SCH (11:20)
[2019-08-23] MEDS: NYSTATIN POWDER 15 GM TP SCH (11:21)
[2019-08-23 12:21] VITALS: BP 146/66
--- NOTE | 2019-08-23 12:55 | Discharge Summary ---
Providers - Providers Date of Admission: 08/20/19 17:47 Date of discharge: 08/23/19 Attending physician: MECCA MELTON 08/20/19 18:31 Consult to Physician [CONS] Routine Comment: Consulting Provider: ANUPAMA ARTEAGA Physician Instructions: Reason For Exam: susp covid. fever. hypoxia Primary care physician: [facility] Hospitalization Condition: Stable Hospital course: 74 YO Female with HTN, CHF, PE not currently on therapeutic anticoagulation, OA, COPD, Chronic Respiratory Failure on Home Oxygen, Seizure disorder, CAD S/P Stent Placement presents to ED for dry cough, fever, body aches, malaise, generalized weakness over the past 3 days. Patient found to have pulse oximetry of 89% on room air with exertion which is consistent with acute hypoxemic respiratory failure, possible COVID-19 infection. Patient initiated on COVID-19 protocol and admitted to medical floor. Infectious disease team consulted in ED. patient was positive for COVID-19, ID recommended to start on dexamethasone 6 mg daily for 10 days. Her oxygen saturation monitored carefully which did not change from her baseline on 2 L oxygen (patient on 2 L home O2). Patient also placed on scheduled breathing treatment, inflammatory markers followed and which remained stable. Patient was then discharged home in stable condition with outpatient follow-up. Daily course: 08/20: Positive for COVID-19, continue to follow inflammatory marker, initiate steroid, follow ID recommendation. Start dexamethasone 6 mg IV/po daily total 10 days. Repeat chest x-ray in the am. If hypoxemia worsen and need more than 2 L NC oxygen will start Remdesivir 200 mg IV x1 followed by 100 mg IV daily for x 4 08/21: cont to follow inflammatory markers, so far Patient remains stable. O2 requirement remains at 2L. cont dexamethasone. follow ID recommendation. if remains clinically stable possible d/c tomorrow 08/22; inflammatory markers stable, will d/c home with total 10 days of dexamethasone. Discharge diagnosis: / Acute on chronic respiratory failure Likely due to underlying COPD and COVID-19 pneumonia Patient started on dexamethasone for 10 days for positive COVID-19 and she will continue her home O2 / COVID-19 PNA COVID-19 protocol initiated in ED: Infectious disease service consulted in ED followed inflammatory marker, ID started on dexamethasone for 10 days Patient did not meet the criteria for them to severe based on her inflammatory markers and oxygen requirement criteria / COPD (chronic obstructive pulmonary disease) exacerbation Continue supplemental oxygen, schedule neb, dexamethasone / Seizure disorder Continue Keppra, seizure precautions. / CAD with h/o PCI Cardiac diet, continue cardiac meds No complaints of chest pain / CHFrEf 35 to 40%, chronic Monitored with daily weight, strictly monitor ins and O's, continue cardiac medications, Chest x-ray without any pulmonary edema, patient appears compensated - Advance care planning Disease education conducted, patient is full code, prognosis discussed with patient, patient acknowledges understanding and agreement with care plan, +30 minutes. - DVT prophylaxis SCD to bilateral lower extremities while in bed, prophylactic heparin. Disposition: Home with home health Physical exam: GENERAL: well-developed and well-nourished elderly female lying on bed appeared to be in mild discomfort. HEENT: Normocephalic. Atraumatic. No conjunctival congestion or icterus. Patient has moist mucous membranes. NECK: Supple. Trachea midline. CHEST/LUNGS: Diminished breath sound auscultated bilaterally, breathing nonlabored. No wheezes crackles or rhonchi. HEART/CARDIOVASCULAR: Regular in rate and rhythm. S1 and S2 positive. ABDOMEN: Abdomen is soft, nontender. Patient has normal bowel sounds. SKIN: There is no rash. Warm and dry. NEURO: No focal motor deficit. Follows command. MUSCULOSKELETAL: No joint effusion or tenderness. EXTRIMITY: No edema, no cyanosis or clubbing. PSYCH: Cooperative. Disposition: /[place]- HOME UNDER [facility] Time spent for discharge: 34 minutes Core Measure Documentation - Palliative Care Palliative Care/ Comfort Measures: Not Applicable - Core Measures Any of the following diagnoses?: history only Exam - Constitutional Vitals: Temp Pulse Resp BP Pulse Ox 98.4 F 61 24 146/66 100 08/23/19 11:57 08/23/19 11:57 08/23/19 11:57 08/23/19 11:57 08/23/19 11:57 Plan Activity: advance as tolerated Weight Bearing Status: Non-Weight Bearing Diet: low fat, low salt Special Instructions: home oxygen via (2L N/c), home health RN Follow up with: BERTHA DE LA CRUZ MD [Primary Care Provider] - 3-5 Days CELE DUGAN MD [Staff Physician] - 7 Days Prescriptions: dexAMETHasone [Decadron] 6 mg PO Q24HR #7 tablet
[2019-08-23] MEDS: carvediloL 12.5 MG TAB PO SCH (14:02)
[2019-08-23] MEDS: LISINOPRIL 40 MG TAB PO SCH (14:03)
[2019-08-23] MEDS: LOSARTAN 50 MG TAB PO SCH (14:17)
== END 2019-08-23 14:35 | disposition home or self-care (01) | DRG 177 ==
LOC: ED 14:30 → 3A 17:47
PROVIDERS: ADMIT Internal Medicine; ATTEND Internal Medicine
DX: U07.1 COVID-19 (principal); J96.21 Acute and chronic respiratory failure with hypoxia; J12.9 Viral pneumonia, unspecified; J44.0 Chronic obstructive pulmonary disease with (acute) lower respiratory infection; J44.1 Chronic obstructive pulmonary disease with (acute) exacerbation; I50.22 Chronic systolic (congestive) heart failure; E66.2 Morbid (severe) obesity with alveolar hypoventilation; M19.90 Unspecified osteoarthritis, unspecified site; I11.0 Hypertensive heart disease with heart failure; G40.909 Epilepsy, unspecified, not intractable, without status epilepticus; I25.10 Atherosclerotic heart disease of native coronary artery without angina pectoris; D70.9 Neutropenia, unspecified; Z88.5 Allergy status to narcotic agent; Z79.899 Other long term (current) drug therapy; Z79.82 Long term (current) use of aspirin; Z68.30 Body mass index [BMI] 30.0-30.9, adult; Z99.81 Dependence on supplemental oxygen; Z90.710 Acquired absence of both cervix and uterus; Z95.5 Presence of coronary angioplasty implant and graft; Z90.49 Acquired absence of other specified parts of digestive tract; Z86.711 Personal history of pulmonary embolism; Z82.49 Family history of ischemic heart disease and other diseases of the circulatory system
CPT/HCPCS: 36415; 71045; 80048; 80053; 82728; 82947; 83615; 83880; 84145; 84484; 85007; 85025; 85379; 86140; 86850; 86900; 86901; 87040; 93005; 94640; 94760; 96365; 96368; 96375; G0378; A9270-GY; J0456; J0696; J1644; J2405; J2920; J7050; J8540; U0003-CS

== ENCOUNTER 2020-03-13 17:58 | Observation (INO) | payer MEDICARE ==
[2020-03-13] MEDS ORDERED: FAMOTIDINE 20 MG TAB PO ONE (19:29)
[2020-03-13] MEDS ORDERED: ACETAMINOPHEN 325 MG TAB PO ONE (19:29)
[2020-03-13] MEDS ORDERED: NITROGLYCERIN 0.4 MG TAB SUBL SL PRN ×2 (19:30→22:00)
--- NOTE | 2020-03-13 19:31 | Emergency Department Report ---
ED Chest Pain HPI - General Chief Complaint: Dyspnea/Respdistress Stated Complaint: CHARU X1DAY PUI?: No Time Seen by Provider: 03/13/20 18:57 Source: patient, EMS ( EMS documentation not available at time of chart dictatio n ), RN notes reviewed, old records reviewed Mode of arrival: Wheelchair Limitations: Physical Limitation - History of Present Illness Initial Comments: The patient was evaluated in the emergency department for symptoms described in the history of present illness. He/she was evaluated in the context of the global COVID-19 pandemic, which necessitated consideration that the patient might be at risk for infection with the virus that causes COVID-19. Institutional protocols and algorithms that pertain to the evaluation of patients at risk for COVID-19 are in a state of rapid change based on information released by regulatory bodies including the CDC and federal and state organizations. These policies and algorithms were followed during the patient's care in the emergency department. Please note that these policies, procedures and recommendations changed on a rapid basis. Cardiology: Dr. Baldwin Pulmonology: Dr. Eastman Past medical history: COPD, chronic respiratory failure on home oxygen, pulmonary embolism, reports paroxysmal A. fib, currently on Eliquis, history of heart disease, hypertension, arthritis. Patient is a 74-year-old female, presenting to the ER with a complaint of centr al chest pain, which does not radiate anywhere, for the past 2 days, intermittent, with shortness of breath. Positive nausea. No vomiting. Chronic abdominal pain. No hematemesis. Reports bloody stool yesterday. No dysuria. Positive lower extremity cramping and swelling. Reports compliance with medications. Had a nuclear cardiac stress test at this hospital mid 2019, which was limited by artifact, but "probably normal", as per the interpreting pathology teacher. Patient not sure if she is consumed aspirin in the past 7 days MD Complaint: chest pain, other -: Gradual, days(s) Pain Location: left chest Pain Radiation: none Severity: moderate Quality: tightness, aching Consistency: intermittent Worsens With: nothing Aspirin use within the Past 7 Days: (0) No - Related Data Home Medications Medication Instructions Recorded Confirmed Last Taken levETIRAcetam 750 mg PO BID 05/25/14 10/09/19 09/24/16 Fluticasone [Flonase] 2 spray NS QDAY 08/12/14 10/09/19 05/13/16 Pantoprazole [Protonix TAB] 40 mg PO QDAY 08/12/14 10/09/19 09/24/16 Rosuvastatin (Nf) [Crestor] 20 mg PO QHS 08/12/14 10/09/19 09/24/16 Phenytoin [Dilantin] 300 mg PO QHS 09/08/14 10/09/19 09/23/16 Albuterol Mdi (or & Nicu Only) 2 puff IH QID PRN 09/24/16 10/09/19 Unknown [ProAir HFA Inhaler] Budesoni/Formotero 160-4.5(Nf) 2 puff IH BID 09/24/16 10/09/19 Unknown [Symbicort 160-4.5 (Nf)] Nitroglycerin [Nitrostat] 0.4 mg SL Q5M 09/24/16 10/09/19 Unknown Apixaban [Eliquis] 5 mg PO Q12H 08/21/19 10/09/19 Unknown carBAMazepine [TEGretol] 200 mg PO Q12HR 08/21/19 10/09/19 Unknown Previous Rx's Medication Instructions Recorded Last Taken Type Escitalopram [Lexapro] 20 mg PO DAILY tablet 05/27/14 09/24/16 Rx Amlodipine Besylate [Norvasc] 10 mg PO DAILY 30 Days tablet 11/19/14 09/24/16 R x ISOSORBIDE MONOnitrate [Imdur ER] 30 mg PO QDAY #30 tablet 11/19/14 09/24/16 Rx carvediloL [Coreg] 12.5 mg PO BID #60 tablet 11/19/14 09/24/16 Rx lisinopriL [Zestril TAB] 40 mg PO DAILY #30 tablet 11/19/14 09/24/16 Rx Aspirin [Aspirin BABY CHEW TAB] 81 mg PO QDAY #30 tab.chew 05/17/16 09/24/16 Rx Losartan [Cozaar] 50 mg PO QDAY #30 tablet 09/26/16 Unknown Rx Ranolazine ER [Ranexa ER] 1,000 mg PO BID tablet 09/26/16 Unknown Rx hydrALAZINE [Apresoline TAB] 25 mg PO Q8HR #90 tablet 09/26/16 Unknown Rx Nystatin [Nystop Powder] 1 applicatio TP TID #7 bottle 03/31/19 Unknown Rx bisacodyL [Dulcolax tab] 10 mg PO QDAY PRN #30 tablet 03/31/19 Unknown Rx dexAMETHasone [Decadron] 6 mg PO Q24HR #7 tablet 08/23/19 Unknown Rx Mag Hydrox/Aluminum Hyd/Simeth 15 ml PO TID PRN 15 Days #1 bottle 10/09/19 Unknown Rx [Maalox Advanced Suspension] Allergies Allergy/AdvReac Type Severity Reaction Status Date / Time morphine Allergy Severe hallucinati Verified 01/06/15 13:14 on Heart Score - HEART Score History: Moderately suspicious EKG: Non-specific Age: > 65 Risk factors: > 3 risk factors or hx of atherosclerotic disease Troponin: < normal limit HEART Score: 6 - Critical Actions Critical Actions: 4-6 pts:12-16.6% risk of adverse cardiac event. Should be admitted ED Review of Systems ROS: Stated complaint: CHARU X1DAY Other details as noted in HPI Constitutional: malaise, weakness. denies: fever Eyes: denies: eye discharge ENT: congestion Respiratory: cough (Chronic cough), shortness of breath Cardiovascular: chest pain Gastrointestinal: abdominal pain, hematochezia Genitourinary: denies: dysuria Musculoskeletal: myalgia Skin: denies: lesions Neurological: weakness Hematological/Lymphatic: denies: easy bleeding ED Past Medical Hx - Past Medical History Previous Medical History?: Yes Hx Hypertension: Yes Hx Heart Attack/AMI: No Hx Congestive Heart Failure: Yes Hx Diabetes: No Hx Deep Vein Thrombosis: No Hx Pulmonary Embolism: Yes (2011) Hx Sickle Cell Disease: No Hx Arthritis: Yes Hx Seizures: Yes Hx Asthma: No Hx COPD: Yes (Home O2) Hx Tuberculosis: No Hx Dementia: No Hx HIV: No Additional medical history: Beneign Brain Tumor - Surgical History Past Surgical History?: Yes Hx Coronary Stent: Yes Hx Open Heart Surgery: No Hx Pacemaker: No Hx Internal Defibrillator: No Hx Cholecystectomy: Yes Hx Appendectomy: No Hx Breast Surgery: No Additional Surgical History: Brain Surgery x 2, Hysterectomy, [place], Hernia, Bowl Obstruction x 3, Back surgery. right hip surgery - Social History Smoking Status: Never Smoker Substance Use Type: None - Medications Home Medications: Home Medications Medication Instructions Recorded Confirmed Last Taken Type levETIRAcetam 750 mg PO BID 05/25/14 10/09/19 09/24/16 History Escitalopram [Lexapro] 20 mg PO DAILY tablet 05/27/14 10/09/19 09/24/16 Rx Fluticasone [Flonase] 2 spray NS QDAY 08/12/14 10/09/19 05/13/16 History Pantoprazole [Protonix TAB] 40 mg PO QDAY 08/12/14 10/09/19 09/24/16 History Rosuvastatin (Nf) [Crestor] 20 mg PO QHS 08/12/14 10/09/19 09/24/16 History Phenytoin [Dilantin] 300 mg PO QHS 09/08/14 10/09/19 09/23/16 History Amlodipine Besylate [Norvasc] 10 mg PO DAILY 30 Days tablet 11/19/14 10/09/19 09/24/16 Rx ISOSORBIDE MONOnitrate [Imdur ER] 30 mg PO QDAY #30 tablet 11/19/14 10/09/19 09/24/16 Rx carvediloL [Coreg] 12.5 mg PO BID #60 tablet 11/19/14 10/09/19 09/24/16 Rx lisinopriL [Zestril TAB] 40 mg PO DAILY #30 tablet 11/19/14 10/09/19 09/24/16 Rx Aspirin [Aspirin BABY CHEW TAB] 81 mg PO QDAY #30 tab.chew 05/17/16 10/09/19 09/24/16 Rx Albuterol Mdi (or & Nicu Only) 2 puff IH QID PRN 09/24/16 10/09/19 Unknown History [ProAir HFA Inhaler] Budesoni/Formotero 160-4.5(Nf) 2 puff IH BID 09/24/16 10/09/19 Unknown History [Symbicort 160-4.5 (Nf)] Nitroglycerin [Nitrostat] 0.4 mg SL Q5M 09/24/16 10/09/19 Unknown History Losartan [Cozaar] 50 mg PO QDAY #30 tablet 09/26/16 10/09/19 Unknown Rx Ranolazine ER [Ranexa ER] 1,000 mg PO BID tablet 09/26/16 10/09/19 Unknown Rx hydrALAZINE [Apresoline TAB] 25 mg PO Q8HR #90 tablet 09/26/16 10/09/19 Unknown Rx Nystatin [Nystop Powder] 1 applicatio TP TID #7 bottle 03/31/19 10/09/19 Unknown Rx bisacodyL [Dulcolax tab] 10 mg PO QDAY PRN #30 tablet 03/31/19 10/09/19 Unknown Rx Apixaban [Eliquis] 5 mg PO Q12H 08/21/19 10/09/19 Unknown History carBAMazepine [TEGretol] 200 mg PO Q12HR 08/21/19 10/09/19 Unknown History dexAMETHasone [Decadron] 6 mg PO Q24HR #7 tablet 08/23/19 10/09/19 Unknown Rx Mag Hydrox/Aluminum Hyd/Simeth 15 ml PO TID PRN 15 Days #1 bottle 10/09/19 Unknown Rx [Maalox Advanced Suspension] ED Physical Exam - General Limitations: Physical Limitation General appearance: alert, in no apparent distress - Head Head exam: Present: atraumatic, normocephalic - Eye Eye exam: Present: normal appearance, EOMI. Absent: nystagmus - ENT ENT exam: Present: normal exam, normal orophraynx, mucous membranes moist, normal external ear exam - Neck Neck exam: Present: normal inspection, full ROM. Absent: tenderness, meningismus - Respiratory Respiratory exam: Present: decreased breath sounds. Absent: respiratory distress, wheezes, rales, rhonchi, stridor - Cardiovascular Cardiovascular Exam: Present: regular rate, normal rhythm, normal heart sounds. Absent: bradycardia, tachycardia, irregular rhythm, systolic murmur, diastolic murmur, rubs, gallop - GI/Abdominal GI/Abdominal exam: Present: soft. Absent: distended, tenderness, guarding, rebound, rigid, pulsatile mass - Rectal Rectal exam: Present: normal inspection, normal rectal tone, heme (-) stool, other (Chaperoned by nurse Yareli Montiel). Absent: heme (+) stool, black stool, bloody stool, fecal impaction - Extremities Exam Extremities exam: Present: normal inspection, full ROM, pedal edema, other (2+ pulses noted in the bilateral upper and lower extremities. There is no palpable cord. negative Homans sign. Muscular compartments are soft. The pelvis is stable.). Absent: calf tenderness - Back Exam Back exam: Present: normal inspection, full ROM. Absent: tenderness, CVA tenderness (R), CVA tenderness (L), paraspinal tenderness, vertebral tenderness - Neurological Exam Neurological exam: Present: alert, other (No facial droop. Tongue midline. Extraocular movements intact bilaterally. Facial sensation intact to light touch in V1, V2, V3 distribution bilaterally. 5 and a 5 strength in 4 extremities. Sensation intact to light touch in 4 extremities.) - Psychiatric Psychiatric exam: Present: anxious - Skin Skin exam: Present: warm, dry, intact, normal color. Absent: rash ED Course Vital Signs 03/13/20 03/13/20 03/13/20 18:39 19:34 19:35 Temperature 98.6 F Pulse Rate 65 66 Respiratory 18 17 17 Rate Blood Pressure 191/66 Blood Pressure 197/83 [Left] O2 Sat by Pulse 95 100 100 Oximetry 03/13/20 03/13/20 03/13/20 21:11 21:19 21:20 Temperature Pulse Rate 61 60 60 Respiratory 11 L Rate Blood Pressure 192/81 192/81 Blood Pressure 144/82 [Left] O2 Sat by Pulse 99 Oximetry - Reevaluation(s) Reevaluation #1: 03/13/20 20:50 Differential diagnosis, including but not limited to: Acute coronary syndrome, GERD, gastritis, hiatal hernia, pneumonia, pulmonary embolism Assessment and plan: 74-year-old female with multiple cardiovascular risk factors, what I appreciate to be nondiagnostic/inconclusive nuclear stress test last year, with concerning chest pain. She is compliant with her Eliquis therapy. She is not currently tachycardic or hypoxic on supplemental oxygen. I think a pulmonary embolism was unlikely by Wells criteria. However, she has poor mobility at baseline, therefore, we will send D-dimer to risk stratify patient for pulmonary embolism. We will also obtain chest x-ray, and appropriate laboratory studies to evaluate for acute coronary syndrome. We will treat her pain aggressively, and continue her current outpatient antihypertensive therapy. I think aortic disease is unlikely, as she has equal pulses in the upper and lower extremities, no pulsatile abdominal mass, and unremarkable mediastinum on x-ray the chest. We would recommend admission to the medical service for cardiac risk ratification. Patient denies new/different loss of taste and smell. Also, it appears that patient may have had Covid a few months ago July 2019. There is no blood on my rectal examination, and she has brown stool that is guaiac negative. 03/13/20 20:52 03/13/20 21:25 D-dimer negative. Troponin negative. X-ray of the chest negative. Blood pressure improved. Patient resting comfortably at this time, and in no acute distress. We will admit for cardiac risk ratification. Hospital physician, Dr. Jara, Will admit the patient to the medical service. As a courtesy, we will place a consultation to [facility], so they may assist in the patient's inpatient decision-making. At the moment, patient hemodynamically stable, does not appear to be in any acute distress, do not see indication for emergent consultation at this time MUKUL score - Mukul Score Age > 65: (1) Yes Aspirin use within the Past 7 Days: (0) No 3 or more CAD Risk Factors: (1) Yes 2 or more Angina events in past 24 hrs: (1) Yes Known CAD with more than 50% Stenosis: (1) Yes Elevated Cardiac Markers: (0) No ST Deviation Greater than 0.5mm: (0) No MUKUL Score: 4 ED Medical Decision Making - Lab Data Result diagrams: 03/13/20 19:52 03/13/20 19:52 Vital Signs 03/13/20 03/13/20 03/13/20 18:39 19:34 19:35 Temperature 98.6 F Pulse Rate 65 66 Respiratory 18 17 17 Rate Blood Pressure 191/66 Blood Pressure 197/83 [Left] O2 Sat by Pulse 95 100 100 Oximetry Lab Results 03/13/20 03/13/20 03/13/20 Range/Units 19:52 19:52 19:52 WBC 4.3 L (4.5-11.0) K/mm3 RBC 3.75 (3.65-5.03) M/mm3 Hgb 12.1 (10.1-14.3) gm/dl Hct 36.1 (30.3-42.9) % MCV 96 (79-97) fl MCH 32 (28-32) pg MCHC 34 (30-34) % RDW 13.5 (13.2-15.2) % Plt Count 281 (140-440) K/mm3 Lymph % (Auto) 48.1 H (13.4-35.0) % [place] % (Auto) 9.8 H (0.0-7.3) % Eos % (Auto) 3.3 (0.0-4.3) % Baso % (Auto) 1.0 (0.0-1.8) % Lymph # (Auto) 2.1 (1.2-5.4) K/mm3 [place]ley # (Auto) 0.4 (0.0-0.8) K/mm3 Eos # (Auto) 0.1 (0.0-0.4) K/mm3 Baso # (Auto) 0.0 (0.0-0.1) K/mm3 Seg Neutrophils % 37.8 L (40.0-70.0) % Seg Neutrophils # 1.6 L (1.8-7.7) K/mm3 PT 13.8 (12.2-14.9) Sec. INR 1.08 (0.87-1.13) D-Dimer 175.78 (0-234) ng/mlDDU Sodium 143 (137-145) mmol/L Potassium 3.8 (3.6-5.0) mmol/L Chloride 104.0 (98-107) mmol/L Carbon Dioxide 29 (22-30) mmol/L Anion Gap 14 mmol/L BUN 10 (7-17) mg/dL Creatinine 0.5 L (0.6-1.2) mg/dL Estimated GFR > 60 ml/min BUN/Creatinine Ratio 20 % Glucose 95 (65-100) mg/dL Calcium 9.3 (8.4-10.2) mg/dL Phosphorus 3.50 (2.5-4.5) mg/dL Magnesium 2.00 (1.7-2.3) mg/dL Total Bilirubin 0.20 (0.1-1.2) mg/dL AST 22 (5-40) units/L ALT 15 (7-56) units/L Alkaline Phosphatase 97 (35-129) units/L Total Creatine Kinase (30-135) units/L Troponin T < 0.010 (0.00-0.029) ng/mL NT-Pro-B Natriuret Pep 222.5 (0-900) pg/mL Total Protein 6.2 L (6.3-8.2) g/dL Albumin 4.1 (3.9-5) g/dL Albumin/Globulin Ratio 2.0 % 03/13/20 03/13/20 Range/Units 19:52 19:52 WBC (4.5-11.0) K/mm3 RBC (3.65-5.03) M/mm3 Hgb (10.1-14.3) gm/dl Hct (30.3-42.9) % MCV (79-97) fl MCH (28-32) pg MCHC (30-34) % RDW (13.2-15.2) % Plt Count (140-440) K/mm3 Lymph % (Auto) (13.4-35.0) % [place] % (Auto) (0.0-7.3) % Eos % (Auto) (0.0-4.3) % Baso % (Auto) (0.0-1.8) % Lymph # (Auto) (1.2-5.4) K/mm3 Owsley # (Auto) (0.0-0.8) K/mm3 Eos # (Auto) (0.0-0.4) K/mm3 Baso # (Auto) (0.0-0.1) K/mm3 Seg Neutrophils % (40.0-70.0) % Seg Neutrophils # (1.8-7.7) K/mm3 PT (12.2-14.9) Sec. INR (0.87-1.13) D-Dimer (0-234) ng/mlDDU Sodium (137-145) mmol/L Potassium (3.6-5.0) mmol/L Chloride (98-107) mmol/L Carbon Dioxide (22-30) mmol/L Anion Gap mmol/L BUN (7-17) mg/dL Creatinine (0.6-1.2) mg/dL Estimated GFR ml/min BUN/Creatinine Ratio % Glucose (65-100) mg/dL Calcium (8.4-10.2) mg/dL Phosphorus (2.5-4.5) mg/dL Magnesium (1.7-2.3) mg/dL Total Bilirubin (0.1-1.2) mg/dL AST (5-40) units/L ALT (7-56) units/L Alkaline Phosphatase (35-129) units/L Total Creatine Kinase 148 H (30-135) units/L Troponin T < 0.010 (0.00-0.029) ng/mL NT-Pro-B Natriuret Pep (0-900) pg/mL Total Protein (6.3-8.2) g/dL Albumin (3.9-5) g/dL Albumin/Globulin Ratio % Vital Signs 03/13/20 03/13/20 03/13/20 18:39 19:34 19:35 Temperature 98.6 F Pulse Rate 65 66 Respiratory 18 17 17 Rate Blood Pressure 191/66 Blood Pressure 197/83 [Left] O2 Sat by Pulse 95 100 100 Oximetry 03/13/20 03/13/20 03/13/20 21:11 21:19 21:20 Temperature Pulse Rate 61 60 60 Respiratory 11 L Rate Blood Pressure 192/81 192/81 Blood Pressure 144/82 [Left] O2 Sat by Pulse 99 Oximetry - EKG Data -: EKG Interpreted by Nm EKG shows normal: sinus rhythm - EKG Data Interpretation: unchanged when compared t 03/13/20 20:45 Sinus rhythm, 68 bpm, left axis deviation, left anterior fascicular block, right bundle branch block, abnormal EKG, motion artifact, not a STEMI. This is unchanged from prior EKG. - Radiology Data Radiology results: report reviewed, image reviewed CHEST 2 VIEWS INDICATION / CLINICAL INFORMATION: SOB, cough, CP. COMPARISON: 10/08/2019 FINDINGS: SUPPORT DEVICES: None. HEART / MEDIASTINUM: Stable. LUNGS / PLEURA: No significant pulmonary or pleural abnormality. No pneumothorax. ADDITIONAL FINDINGS: Moderate bilateral shoulder arthrosis. IMPRESSION: 1. No acute findings. No significant interval change since 10/08/2019. Signer Name: Peter Dickerson MD Signed: 03/13/2020 6:46 PM Workstation Name: [id number] Critical care attestation.: If time is entered above; I have spent that time in minutes in the direct care of this critically ill patient, excluding procedure time. ED Disposition Clinical Impression: Acute chest pain, Acute dyspnea, History of COPD Disposition: OP ADMIT IP TO THIS HOSP Is pt being admited?: Yes Does the pt Need Aspirin: No Condition: Good Instructions: Chest Pain (ED) Referrals: PRIMARY CARE, [Primary Care Provider] - 3-5 Days
--- NOTE | 2020-03-13 19:50 | XRay Report ---
CHEST 2 VIEWS INDICATION / CLINICAL INFORMATION: SOB, cough, CP. COMPARISON: 10/08/2019 FINDINGS: SUPPORT DEVICES: None. HEART / MEDIASTINUM: Stable. LUNGS / PLEURA: No significant pulmonary or pleural abnormality. No pneumothorax. ADDITIONAL FINDINGS: Moderate bilateral shoulder arthrosis. IMPRESSION: 1. No acute findings. No significant interval change since 10/08/2019. Signer Name: Peter Dickerson MD Signed: 03/13/2020 7:46 PM Workstation Name: [id number]
[2020-03-13] MEDS ORDERED: ASPIRIN 81 MG TAB CHEW PO ONE (20:50)
[2020-03-13 20:56] LABS: Eosinophils # (Auto) 0.1 K/mm3 (0.0-0.4); Eosinophils % (Auto) 3.3 % (0.0-4.3); Hematocrit 36.1 % (30.3-42.9); Hemoglobin 12.1 gm/dl (10.1-14.3); Lymphocytes # (Auto) 2.1 K/mm3 (1.2-5.4); Lymphocytes % (Auto) 48.1 % (13.4-35.0); Mean Corpuscular HGB Conc 34 % (30-34); Mean Corpuscular Volume 96 fl (79-97); Monocytes # (Auto) 0.4 K/mm3 (0.0-0.8); Monocytes % (Auto) 9.8 % (0.0-7.3); Platelet Count 281 K/mm3 (140-440); Red Blood Count 3.75 M/mm3 (3.65-5.03); Red Cell Distribution Width 13.5 % (13.2-15.2)
[2020-03-13 21:03] LABS: Alanine Aminotransferase 15 units/L (7-56); Albumin 4.1 g/dL (3.9-5); BUN/Creatinine Ratio 20; Blood Urea Nitrogen 10 mg/dL (7-17); Calcium 9.3 mg/dL (8.4-10.2); Hemolysis Index 10; INR 1.08 (0.87-1.13)
[2020-03-13] MEDS: hydrALAZINE 25 MG TAB PO STA ×2 (21:15→21:19)
[2020-03-13] MEDS: amLODIPine 5 MG TAB PO ONE ×2 (21:15→21:20)
[2020-03-13] MEDS ORDERED: ALBUTEROL 8.5 GM MDI INHALATION IH PRN (21:40)
[2020-03-13] MEDS ORDERED: MORPHINE 4 MG/1 ML INJ IV PRN (21:44)
[2020-03-13] MEDS ORDERED: NON-FORMULARY EACH (Amlodipine Besylate [Norvasc] 2.5 MG Tablet) PO SCH (21:45)
--- NOTE | 2020-03-13 21:51 | History and Physical Report ---
History of Present Illness Date of examination: 03/13/20 Date of admission: 03/13/20 21:27 Chief complaint: Chest pain shortness of breath History of present illness: 74-year-old female with history of COPD, chronic respiratory failure on home oxygen, pulmonary embolism, reports paroxysmal A. fib, currently on Eliquis, history of heart disease, hypertension, arthritis was brought to the ER with a complaint of intermittent central chest pain 3/10 does not radiate for the past 2 days associated with shortness of breath. Patient complaining up nausea. No vomiting. positive lower extremity cramping and swelling. Initial cardiac enzyme in the ER is negative. Past History Past Medical History: atrial fib, COPD, pulmonary embolism Medications and Allergies Allergies Allergy/AdvReac Type Severity Reaction Status Date / Time morphine Allergy Severe hallucinati Verified 01/06/15 13:14 on Home Medications Medication Instructions Recorded Confirmed Last Taken Type levETIRAcetam 750 mg PO BID 05/25/14 10/09/19 09/24/16 History Escitalopram [Lexapro] 20 mg PO DAILY tablet 05/27/14 10/09/19 09/24/16 Rx Fluticasone [Flonase] 2 spray NS QDAY 08/12/14 10/09/19 05/13/16 History Pantoprazole [Protonix TAB] 40 mg PO QDAY 08/12/14 10/09/19 09/24/16 History Rosuvastatin (Nf) [Crestor] 20 mg PO QHS 08/12/14 10/09/19 09/24/16 History Phenytoin [Dilantin] 300 mg PO QHS 09/08/14 10/09/19 09/23/16 History Amlodipine Besylate [Norvasc] 10 mg PO DAILY 30 Days tablet 11/19/14 10/09/19 09/24/16 Rx ISOSORBIDE MONOnitrate [Imdur ER] 30 mg PO QDAY #30 tablet 11/19/14 10/09/19 09/24/16 Rx carvediloL [Coreg] 12.5 mg PO BID #60 tablet 11/19/14 10/09/19 09/24/16 Rx lisinopriL [Zestril TAB] 40 mg PO DAILY #30 tablet 11/19/14 10/09/19 09/24/16 Rx Aspirin [Aspirin BABY CHEW TAB] 81 mg PO QDAY #30 tab.chew 05/17/16 10/09/19 09/24/16 Rx Albuterol Mdi (or & Nicu Only) 2 puff IH QID PRN 09/24/16 10/09/19 Unknown History [ProAir HFA Inhaler] Budesoni/Formotero 160-4.5(Nf) 2 puff IH BID 09/24/16 10/09/19 Unknown History [Symbicort 160-4.5 (Nf)] Nitroglycerin [Nitrostat] 0.4 mg SL Q5M 09/24/16 10/09/19 Unknown History Losartan [Cozaar] 50 mg PO QDAY #30 tablet 09/26/16 10/09/19 Unknown Rx Ranolazine ER [Ranexa ER] 1,000 mg PO BID tablet 09/26/16 10/09/19 Unknown Rx hydrALAZINE [Apresoline TAB] 25 mg PO Q8HR #90 tablet 09/26/16 10/09/19 Unknown Rx Nystatin [Nystop Powder] 1 applicatio TP TID #7 bottle 03/31/19 10/09/19 Unknown Rx bisacodyL [Dulcolax tab] 10 mg PO QDAY PRN #30 tablet 03/31/19 10/09/19 Unknown Rx Apixaban [Eliquis] 5 mg PO Q12H 08/21/19 10/09/19 Unknown History carBAMazepine [TEGretol] 200 mg PO Q12HR 08/21/19 10/09/19 Unknown History dexAMETHasone [Decadron] 6 mg PO Q24HR #7 tablet 08/23/19 10/09/19 Unknown Rx Mag Hydrox/Aluminum Hyd/Simeth 15 ml PO TID PRN 15 Days #1 bottle 10/09/19 Unknown Rx [Maalox Advanced Suspension] Active Meds: Active Medications Albuterol (Albuterol 8.5 Gm Mdi Inhalation) 2 puff IH QID PRN PRN Reason: Shortness Of Breath Apixaban (Apixaban 5 Mg Tab) 5 mg PO Q12H TRANG; Protocol Aspirin (Aspirin 81 Mg Tab Chew) 81 mg PO QDAY TRANG Bisacodyl (Bisacodyl 5 Mg Tab) 10 mg PO QDAY PRN PRN Reason: Constipation Carbamazepine (Carbamazepine 200 Mg Tab) 200 mg PO Q12HR [facility] Carvedilol (Carvedilol 12.5 Mg Tab) 12.5 mg PO BID [facility] Dexamethasone (Dexamethasone 2 Mg Tab) 6 mg PO Q24HR [facility] Escitalopram Oxalate (Escitalopram 10 Mg Tab) 20 mg PO DAILY [facility] Fluticasone Propionate (Fluticasone Propionate Nasal [place] 16 Gm) 100 mcg NS QDAY [facility] Lisinopril (Lisinopril 40 Mg Tab) 40 mg PO DAILY [facility] Losartan Potassium (Losartan 50 Mg Tab) 50 mg PO QDAY [facility] Miscellaneous Medication (Levetiracetam) 750 mg PO BID [facility] Miscellaneous Medication (Rosuvastatin (Nf)) 20 mg PO QHS [facility] Miscellaneous Medication (Amlodipine Besylate [Norvasc]) 10 mg PO DAILY [facility] Nitroglycerin (Nitroglycerin 0.4 Mg Tab Subl) 0.4 mg SL .Q5MIN PRN PRN Reason: Chest Pain Nitroglycerin (Nitroglycerin 0.4 Mg Tab Subl) 0.4 mg SL Q5M [facility] Nystatin (Nystatin Powder 15 Gm) 1 applic TP TID [facility] Pantoprazole Sodium (Pantoprazole 40 Mg Tab) 40 mg PO QDAY [facility] Phenytoin (Phenytoin 100 Mg Capsule.Er) 300 mg PO QHS [facility] Ranolazine (Ranolazine Er 500 Mg Tab 12hr) 1,000 mg PO BID [facility] Review of Systems Cardiovascular: chest pain, shortness of breath, dyspnea on exertion Respiratory: shortness of breath Exam - Constitutional Vitals: Temp Pulse Resp BP Pulse Ox 98.6 F 60 11 L 192/81 99 03/13/20 18:39 03/13/20 21:20 03/13/20 21:11 03/13/20 21:20 03/13/20 21:11 General appearance: Present: no acute distress - EENT Eyes: Present: PERRL ENT: hearing intact, clear oral mucosa - Neck Neck: Present: supple, normal ROM - Respiratory Respiratory effort: normal Respiratory: bilateral: diminished - Cardiovascular Rhythm: irregularly irregular Heart Sounds: Present: S1 & S2. Absent: rub, click - Extremities Extremities: pulses symmetrical, No edema Peripheral Pulses: within normal limits - Abdominal General gastrointestinal: Present: soft, non-tender, non-distended, normal bowel sounds Female genitourinary: Present: normal - Integumentary Integumentary: Present: clear, warm, dry - Musculoskeletal Musculoskeletal: gait normal, strength equal bilaterally - Psychiatric Psychiatric: appropriate mood/affect, intact judgment & insight HEART Score - HEART Score EKG: Non-specific Age: > 65 Risk factors: > 3 risk factors or hx of atherosclerotic disease Troponin: Troponin T < 0.010 ng/mL (0.00-0.029) 03/13/20 19:52 Troponin T < 0.010 ng/mL (0.00-0.029) 03/13/20 19:52 Troponin: < normal limit - Critical Actions Critical Actions: 4-6 pts:12-16.6% risk of adverse cardiac event. Should be admitted Results - Labs CBC & Chem 7: 03/13/20 19:52 03/13/20 19:52 Labs: Laboratory Last Values WBC 4.3 K/mm3 (4.5-11.0) L 03/13/20 19:52 RBC 3.75 M/mm3 (3.65-5.03) 03/13/20 19:52 Hgb 12.1 gm/dl (10.1-14.3) 03/13/20 19:52 Hct 36.1 % (30.3-42.9) 03/13/20 19:52 MCV 96 fl (79-97) 03/13/20 19:52 MCH 32 pg (28-32) 03/13/20 19:52 MCHC 34 % (30-34) 03/13/20 19:52 RDW 13.5 % (13.2-15.2) 03/13/20 19:52 Plt Count 281 K/mm3 (140-440) 03/13/20 19:52 Lymph % (Auto) 48.1 % (13.4-35.0) H 03/13/20 19:52 [place] % (Auto) 9.8 % (0.0-7.3) H 03/13/20 19:52 Eos % (Auto) 3.3 % (0.0-4.3) 03/13/20 19:52 Baso % (Auto) 1.0 % (0.0-1.8) 03/13/20 19:52 Lymph # (Auto) 2.1 K/mm3 (1.2-5.4) 03/13/20 19:52 [place] # (Auto) 0.4 K/mm3 (0.0-0.8) 03/13/20 19:52 Eos # (Auto) 0.1 K/mm3 (0.0-0.4) 03/13/20 19:52 Baso # (Auto) 0.0 K/mm3 (0.0-0.1) 03/13/20 19:52 Seg Neutrophils % 37.8 % (40.0-70.0) L 03/13/20 19:52 Seg Neutrophils # 1.6 K/mm3 (1.8-7.7) L 03/13/20 19:52 PT 13.8 Sec. (12.2-14.9) 03/13/20 19:52 INR 1.08 (0.87-1.13) 03/13/20 19:52 D-Dimer 175.78 ng/mlDDU (0-234) 03/13/20 19:52 Sodium 143 mmol/L (137-145) 03/13/20 19:52 Potassium 3.8 mmol/L (3.6-5.0) 03/13/20 19:52 Chloride 104.0 mmol/L (98-107) 03/13/20 19:52 Carbon Dioxide 29 mmol/L (22-30) 03/13/20 19:52 Anion Gap 14 mmol/L 03/13/20 19:52 BUN 10 mg/dL (7-17) 03/13/20 19:52 Creatinine 0.5 mg/dL (0.6-1.2) L 03/13/20 19:52 Estimated GFR > 60 ml/min 03/13/20 19:52 BUN/Creatinine Ratio 20 % 03/13/20 19:52 Glucose 95 mg/dL (65-100) 03/13/20 19:52 Calcium 9.3 mg/dL (8.4-10.2) 03/13/20 19:52 Phosphorus 3.50 mg/dL (2.5-4.5) 03/13/20 19:52 Magnesium 2.00 mg/dL (1.7-2.3) 03/13/20 19:52 Total Bilirubin 0.20 mg/dL (0.1-1.2) 03/13/20 19:52 AST 22 units/L (5-40) 03/13/20 19:52 ALT 15 units/L (7-56) 03/13/20 19:52 Alkaline Phosphatase 97 units/L (35-129) 03/13/20 19:52 Total Creatine Kinase 148 units/L (30-135) H 03/13/20 19:52 Troponin T < 0.010 ng/mL (0.00-0.029) 03/13/20 19:52 Troponin T < 0.010 ng/mL (0.00-0.029) 03/13/20 19:52 NT-Pro-B Natriuret Pep 222.5 pg/mL (0-900) 03/13/20 19:52 Total Protein 6.2 g/dL (6.3-8.2) L 03/13/20 19:52 Albumin 4.1 g/dL (3.9-5) 03/13/20 19:52 Albumin/Globulin Ratio 2.0 % 03/13/20 19:52 - Imaging and Cardiology Chest x-ray: image reviewed Adams/IV: IV Catheter Type [Right Medial INT / [place]ine Lock Port Forearm] Assessment and Plan - Patient Problems (1) Acute chest pain Current Visit: Yes Status: Acute Plan to address problem: Admit the patient to the medical floor telemetry. Put the patient on chest pain pathway. Aspirin 81 mg p.o. daily. Lipitor 40 mg p.o. daily. We do the serial cardiac enzyme. We also do a Rachel scan and echocardiogram. Will consult cardiology for further evaluation and treatment. Apixaban 2.5 mg p.o. twice a day Protonix 40 mg p.o. daily (2) Acute dyspnea Current Visit: Yes Status: Acute Plan to address problem: Oxygen by nasal cannula 3 L/min. DuoNeb by nebulizer every 4 hours as needed. We will continue the home medication (3) History of COPD Current Visit: Yes Status: Chronic Plan to address problem: Oxygen by nasal cannula 3 L/min. DuoNeb by nebulizer every 4 hours as needed. We will continue the home medication.
[2020-03-13] MEDS ORDERED: NON-FORMULARY EACH (Levetiracetam 750 MG) PO SCH (22:00)
[2020-03-13] MEDS ORDERED: LISINOPRIL 40 MG TAB PO SCH (22:00)
[2020-03-13] MEDS ORDERED: NON-FORMULARY EACH (Rosuvastatin (Nf) 20 MG Tablet) PO SCH (22:00)
[2020-03-13] MEDS ORDERED: ALBUTEROL 2.5 MG/3 ML NEBU IH PRN (22:10)
[2020-03-13] MEDS: PHENYTOIN 100 MG CAPSULE.ER PO SCH (22:26)
[2020-03-13] MEDS: levETIRAcetam 500 MG TAB PO SCH (22:27)
[2020-03-13] MEDS: APIXABAN 5 MG TAB PO SCH (22:28)
[2020-03-13] MEDS: DEXAMETHASONE 4 MG TAB PO SCH (22:29)
[2020-03-13] MEDS: carBAMazepine 200 MG TAB PO SCH (22:30)
[2020-03-13] MEDS: ESCITALOPRAM 10 MG TAB PO SCH (23:27)
[2020-03-13] MEDS: RANOLAZINE ER 500 MG TAB 12HR PO SCH (23:29)
[2020-03-13] MEDS: carvediloL 12.5 MG TAB PO SCH (23:31)
[2020-03-13] MEDS: FLUTICASONE PROPIONATE NASAL SPRAY 16 GM NS SCH (23:33)
[2020-03-14 02:48] LABS: Basophils % (Auto) 0.4 % (0.0-1.8); Eosinophils # (Auto) 0.1 K/mm3 (0.0-0.4); Eosinophils % (Auto) 1.3 % (0.0-4.3); Hematocrit 34.6 % (30.3-42.9); Hemoglobin 11.5 gm/dl (10.1-14.3); Lymphocytes # (Auto) 1.4 K/mm3 (1.2-5.4); Lymphocytes % (Auto) 22.9 % (13.4-35.0); Mean Corpuscular HGB Conc 33 % (30-34); Mean Corpuscular Volume 95 fl (79-97); Monocytes # (Auto) 0.2 K/mm3 (0.0-0.8); Monocytes % (Auto) 3.4 % (0.0-7.3); Platelet Count 271 K/mm3 (140-440); Red Blood Count 3.63 M/mm3 (3.65-5.03)
[2020-03-14] MEDS: ONDANSETRON 4 MG/2 ML INJ IV SCH ×4 (02:50→21:24)
[2020-03-14] MEDS: ACETAMINOPHEN 325 MG TAB PO PRN ×2 (02:50→21:26)
[2020-03-14 03:03] LABS: Blood Urea Nitrogen 10 mg/dL (7-17); Calcium 9.2 mg/dL (8.4-10.2); Chol/HDL Ratio 2.04 %; HDL Cholesterol 63 mg/dL (40-59); Hemolysis Index 1; LDL Cholesterol,Direct 62 mg/dL (50-130)
[2020-03-14 03:08] LABS: BUN/Creatinine Ratio 20
[2020-03-14] MEDS: levETIRAcetam 500 MG TAB PO SCH ×2 (09:02→21:25)
[2020-03-14] MEDS: carBAMazepine 200 MG TAB PO SCH ×2 (09:04→21:26)
[2020-03-14] MEDS: PANTOPRAZOLE 40 MG TAB PO SCH (09:06)
[2020-03-14] MEDS: ESCITALOPRAM 10 MG TAB PO SCH (09:08)
[2020-03-14] MEDS: RANOLAZINE ER 500 MG TAB 12HR PO SCH ×2 (09:27→21:26)
[2020-03-14] MEDS: ASPIRIN 81 MG TAB CHEW PO SCH (09:28)
--- NOTE | 2020-03-14 09:46 | Discharge Summary ---
Providers - Providers Date of Admission: 03/13/20 21:27 Attending physician: KRYSTEN MAYES MD 03/13/20 Consult to Cardiac Rehabilitation [CONS] Routine Reason For Exam: Phase I 03/13/20 21:26 Consult to Physician [CONS] Urgent Comment: Consulting Provider: ANATOLY CIFUENTES Physician Instructions: Reason For Exam: cp dyspnea, known to you Primary care physician: [employer] Hospitalization Reason for admission: CHEST PAIN Condition: Stable Hospital course: 74-year-old female with history of COPD, chronic respiratory failure on home oxygen, pulmonary embolism, reports paroxysmal A. fib, currently on Eliquis, history of heart disease, hypertension, arthritis was brought to the ER with a complaint of intermittent central chest pain 3/10 does not radiate for the past 2 days associated with shortness of breath. Patient complaining up nausea. No vomiting. positive lower extremity cramping and swelling. Initial cardiac enzyme in the ER is negative. Patient clinically stable, pain is chronic, she also states that she has had contact with someone with COVID, while her Oxygen demand has not changed she is concerned about being discharged without knowing her status. Covid 19 order placed. Cardiology consulted. Await COVID-19 testing. Otherwise stable cardiac status. Continue home cardiac regimen. 03/15: PATIENTS COVID 19 TESTING NEGATIVE (1) Stable angina Current Visit: Yes Status: Chronic (2) Chronic respiratory failure Current Visit: Yes Status: Chronic Qualifiers: Qualified Code(s): J96.10 - Chronic respiratory failure, unspecified whether with hypoxia or hypercapnia (3) COPD (chronic obstructive pulmonary disease) Current Visit: Yes Status: Chronic Qualifiers: Qualified Code(s): J44.9 - Chronic obstructive pulmonary disease, unspecified (4) Obesity hypoventilation syndrome Current Visit: Yes Status: Chronic (5) GARRETT (obstructive sleep apnea) Current Visit: Yes Status: Chronic (6) Chronic heart failure with preserved ejection fraction (HFpEF) Current Visit: Yes Status: Chronic (7) PAF (paroxysmal atrial fibrillation) Current Visit: Yes Status: Chronic (8) Coronary artery disease Current Visit: Yes Status: Chronic Qualifiers: Coronary Disease-Associated Artery/Lesion type: [place] artery [place] vs. transplanted heart: [place] heart Associated angina: with stable angina Qualified Code(s): I25.118 - Atherosclerotic heart disease of [place] coronary a rtery with other forms of angina pectoris (9) Stented coronary artery Current Visit: Yes Status: Chronic (10) Hypertension Current Visit: Yes Status: Chronic Qualifiers: Hypertension type: essential hypertension Qualified Code(s): I10 - Essential (primary) hypertension (11) Hyperlipidemia Current Visit: Yes Status: Chronic Qualifiers: Hyperlipidemia type: mixed hyperlipidemia Qualified Code(s): E78.2 - Mixed hyperlipidemia (12) Hx pulmonary embolism Current Visit: Yes Status: Chronic (13) Seizure disorder Current Visit: Yes Status: Chronic (14) GERD (gastroesophageal reflux disease) Current Visit: Yes Status: Chronic Disposition: [id number] HOME UNDER HOME HLTH Time spent for discharge: 35 mins Core Measure Documentation - Palliative Care Palliative Care/ Comfort Measures: Not Applicable - Core Measures Any of the following diagnoses?: none Exam - Physical Exam Narrative exam: General appearance: Present: no acute distress - EENT Eyes: Present: PERRL ENT: hearing intact, clear oral mucosa - Neck Neck: Present: supple, normal ROM - Respiratory Respiratory effort: normal Respiratory: bilateral: diminished - Cardiovascular Rhythm: irregularly irregular Heart Sounds: Present: S1 & S2. Absent: rub, click - Extremities Extremities: pulses symmetrical, No edema Peripheral Pulses: within normal limits - Abdominal General gastrointestinal: Present: soft, non-tender, non-distended, normal bowel sounds Female genitourinary: Present: normal - Integumentary Integumentary: Present: clear, warm, dry - Musculoskeletal Musculoskeletal: gait normal, strength equal bilaterally - Psychiatric Psychiatric: appropriate mood/affect, intact judgment & insight - Constitutional Vitals: Temp Pulse Resp BP Pulse Ox 97.9 F 62 18 116/62 100 03/14/20 09:22 03/14/20 09:22 03/14/20 09:22 03/14/20 09:22 03/14/20 09:22 Plan Activity: advance as tolerated, fall precautions Diet: low fat Special Instructions: record daily weights, record daily BP diary Follow up with: BERTHA DE LA CRUZ MD [Primary Care Provider] - 3-5 Days ANATOLY CIFUENTES MD [Staff Physician] - 7 Days
[2020-03-14] MEDS: amLODIPine 10 MG TAB PO SCH (10:15)
[2020-03-14] MEDS: LOSARTAN 50 MG TAB PO SCH (10:16)
--- NOTE | 2020-03-14 12:02 | Consultation ---
History of Present Illness Consult date: 03/14/20 Requesting physician: MATEO LOYA Consult reason: chest pain History of present illness: Pt is a 74-year-old AA female, followed in our office by Dr. Baldwin, who presented with complaints of SOB, dizziness, and mild exertional chest pain since last Saturday. Pt has chronic resp fail/COPD and is on 2L home O2. She s tates her sx improved with increase in O2 to 3L NC. No additional cardiac complaints. Pt has been compliant with her home cardiac regimen. Trop neg x 2. ECG reveals no acute ischemic changes. BNP WNL. CXR reveals no acute findings. Of note, pt states she was recently in contact with a COVID-positive resident. She denies any fever/chills. TTE 10/08/2019 - EF 50-55%, diastolic dysfxn. Lexiscan stress MPI 10/09/2019 - negative for ischemia. LHC 06/2018 - left main patent, LAD patent, Cfx patent, OM1 patent, all with mild luminal irregularities, RCA mid stent patent. Past History Past Medical History: atrial fib, CAD, COPD, GERD, heart failure, hypertension, hyperlipidemia, pulmonary embolism, seizures Past Surgical History: PTCA Social history: denies: smoking, alcohol abuse Medications and Allergies Allergies Allergy/AdvReac Type Severity Reaction Status Date / Time morphine Allergy Severe hallucinati Verified 01/06/15 13:14 on Home Medications Medication Instructions Recorded Confirmed Last Taken Type levETIRAcetam 750 mg PO BID 05/25/14 10/09/19 09/24/16 History Escitalopram [Lexapro] 20 mg PO DAILY tablet 05/27/14 10/09/19 09/24/16 Rx Fluticasone [Flonase] 2 spray NS QDAY 08/12/14 10/09/19 05/13/16 History Pantoprazole [Protonix TAB] 40 mg PO QDAY 08/12/14 10/09/19 09/24/16 History Rosuvastatin (Nf) [Crestor] 20 mg PO QHS 08/12/14 10/09/19 09/24/16 History Phenytoin [Dilantin] 300 mg PO QHS 09/08/14 10/09/19 09/23/16 History Amlodipine Besylate [Norvasc] 10 mg PO DAILY 30 Days tablet 11/19/14 10/09/19 09/24/16 Rx ISOSORBIDE MONOnitrate [Imdur ER] 30 mg PO QDAY #30 tablet 11/19/14 10/09/19 09/24/16 Rx carvediloL [Coreg] 12.5 mg PO BID #60 tablet 11/19/14 10/09/19 09/24/16 Rx Aspirin [Aspirin BABY CHEW TAB] 81 mg PO QDAY #30 tab.chew 05/17/16 10/09/19 09/24/16 Rx Albuterol Mdi (or & Nicu Only) 2 puff IH QID PRN 09/24/16 10/09/19 Unknown History [ProAir HFA Inhaler] Budesoni/Formotero 160-4.5(Nf) 2 puff IH BID 09/24/16 10/09/19 Unknown History [Symbicort 160-4.5 (Nf)] Nitroglycerin [Nitrostat] 0.4 mg SL Q5M 09/24/16 10/09/19 Unknown History Losartan [Cozaar] 50 mg PO QDAY #30 tablet 09/26/16 10/09/19 Unknown Rx Ranolazine ER [Ranexa ER] 1,000 mg PO BID tablet 09/26/16 10/09/19 Unknown Rx hydrALAZINE [Apresoline TAB] 25 mg PO Q8HR #90 tablet 09/26/16 10/09/19 Unknown Rx Nystatin [Nystop Powder] 1 applicatio TP TID #7 bottle 03/31/19 10/09/19 Unknown Rx bisacodyL [Dulcolax tab] 10 mg PO QDAY PRN #30 tablet 03/31/19 10/09/19 Unknown Rx Apixaban [Eliquis] 5 mg PO Q12H 08/21/19 10/09/19 Unknown History carBAMazepine [TEGretol] 200 mg PO Q12HR 08/21/19 10/09/19 Unknown History dexAMETHasone [Decadron] 6 mg PO Q24HR #7 tablet 08/23/19 10/09/19 Unknown Rx Mag Hydrox/Aluminum Hyd/Simeth 15 ml PO TID PRN 15 Days #1 bottle 10/09/19 Unknown Rx [Maalox Advanced Suspension] Active Meds: Active Medications Acetaminophen (Acetaminophen 325 Mg Tab) 650 mg PO Q6H PRN PRN Reason: Pain, Mild (1-3) Last Admin: 03/14/20 02:50 Dose: 650 mg Documented by: Albuterol (Albuterol 2.5 Mg/3 Ml Nebu) 2.5 mg IH Q4HRT PRN PRN Reason: Shortness Of Breath Amlodipine Besylate (Amlodipine 10 Mg Tab) 10 mg PO DAILY [facility] Apixaban (Apixaban 5 Mg Tab) 5 mg PO Q12H [facility]; Protocol Last Admin: 03/13/20 22:28 Dose: 5 mg Documented by: Aspirin (Aspirin 81 Mg Tab Chew) 81 mg PO QDAY [facility] Last Admin: 03/14/20 09:28 Dose: 81 mg Documented by: Atorvastatin Calcium (Atorvastatin 40 Mg Tab) 40 mg PO QHS [facility] Last Admin: 03/13/20 22:29 Dose: 40 mg Documented by: Bisacodyl (Bisacodyl 5 Mg Tab) 10 mg PO QDAY PRN PRN Reason: Constipation Carbamazepine (Carbamazepine 200 Mg Tab) 200 mg PO Q12HR [facility] Last Admin: 03/14/20 09:04 Dose: 200 mg Documented by: Carvedilol (Carvedilol 12.5 Mg Tab) 12.5 mg PO BID [facility] Last Admin: 03/13/20 23:31 Dose: 12.5 mg Documented by: Dexamethasone (Dexamethasone 4 Mg Tab) 6 mg PO Q24H [facility] Last Admin: 03/13/20 22:29 Dose: 6 mg Documented by: Escitalopram Oxalate (Escitalopram 10 Mg Tab) 20 mg PO DAILY [facility] Last Admin: 03/14/20 09:08 Dose: 20 mg Documented by: Fluticasone Propionate (Fluticasone Propionate Nasal [place] 16 Gm) 100 mcg NS QDAY [facility] Last Admin: 03/13/20 23:33 Dose: Not Given Documented by: Levetiracetam (Levetiracetam 500 Mg Tab) 750 mg PO BID [facility] Last Admin: 03/14/20 09:02 Dose: 750 mg Documented by: Losartan Potassium (Losartan 50 Mg Tab) 50 mg PO QDAY [facility] Nitroglycerin (Nitroglycerin 0.4 Mg Tab Subl) 0.4 mg SL Q5M PRN PRN Reason: Chest Pain Nystatin (Nystatin Powder 15 Gm) 1 applic TP TID [facility] Ondansetron HCl (Ondansetron 4 Mg/2 Ml Inj) 4 mg IV Q6H [facility] Last Admin: 03/14/20 09:02 Dose: 4 mg Documented by: Pantoprazole Sodium (Pantoprazole 40 Mg Tab) 40 mg PO QDAY [facility] Last Admin: 03/14/20 09:06 Dose: 40 mg Documented by: Phenytoin (Phenytoin 100 Mg Capsule.Er) 300 mg PO QHS [facility] Last Admin: 03/13/20 22:26 Dose: 300 mg Documented by: Ranolazine (Ranolazine Er 500 Mg Tab 12hr) 1,000 mg PO BID [facility] Last Admin: 03/14/20 09:27 Dose: 1,000 mg Documented by: Sodium Chloride (Sodium Chloride 0.9% 10 Ml Flush Syringe) 10 ml IV PRN PRN PRN Reason: LINE FLUSH Last Admin: 03/14/20 09:05 Dose: 10 ml Documented by: Review of Systems Constitutional: no fever, no chills, no sweats Ears, nose, mouth and throat: no nasal congestion, no sore throat Cardiovascular: chest pain, lightheadedness, shortness of breath, claudication, no orthopnea, no palpitations, no edema, no syncope, no dyspnea on exertion, no paroxysmal nocturnal dyspnea Respiratory: cough (chronic), shortness of breath Gastrointestinal: no abdominal pain, no nausea, no vomiting, no diarrhea, no co nstipation Genitourinary Female: no pelvic pain, no flank pain, no dysuria Musculoskeletal: no neck stiffness, no neck pain, no myalgias Integumentary: no rash, no wounds Neurological: no head injury, no paralysis, no weakness, no parathesias, no numbness, no tingling, no seizures, no syncope, no vertigo, no headaches Endocrine: no cold intolerance, no heat intolerance, no polydipsia, no polyuria Hematologic/Lymphatic: no easy bruising, no easy bleeding Allergic/Immunologic: no anaphylaxis Physical Examination Last Vital Signs Temp 97.9 F 03/14/20 09:22 Pulse 62 03/14/20 09:22 Resp 18 03/14/20 09:22 BP 116/62 03/14/20 09:22 Pulse Ox 100 03/14/20 09:22 General appearance: no acute distress HEENT: Positive: EOMI, Normocephaly, Mucus Membranes Moist Neck: Positive: neck supple, trachea midline. Negative: JVD/HJR Cardiac: Positive: Reg Rate and Rhythm, S1/S2 Lungs: Positive: Decreased Breath Sounds Neuro: Positive: Grossly Intact Abdomen: Positive: Soft. Negative: Tender Skin: Negative: Rash Musculoskeletal: Pain in Joint (R knee) Extremities: Present: upper extr. pulses, lower extr. pulses. Absent: edema Results 03/14/20 01:18 03/14/20 01:18 Cardiac Enzymes 03/13/20 Range/Units 19:52 AST 22 (5-40) units/L Coagulation 03/13/20 Range/Units 19:52 PT 13.8 (12.2-14.9) Sec. INR 1.08 (0.87-1.13) Lipids 03/14/20 Range/Units 01:18 Triglycerides 59 (2-149) mg/dL Cholesterol 129 (50-199) mg/dL HDL Cholesterol 63 H (40-59) mg/dL Cholesterol/HDL Ratio 2.04 % CBC 03/13/20 03/14/20 Range/Units 19:52 01:18 WBC 4.3 L 6.0 (4.5-11.0) K/mm3 RBC 3.75 3.63 L (3.65-5.03) M/mm3 Hgb 12.1 11.5 (10.1-14.3) gm/dl Hct 36.1 34.6 (30.3-42.9) % Plt Count 281 271 (140-440) K/mm3 Lymph # (Auto) 2.1 1.4 (1.2-5.4) K/mm3 [place] # (Auto) 0.4 0.2 (0.0-0.8) K/mm3 Eos # (Auto) 0.1 0.1 (0.0-0.4) K/mm3 Baso # (Auto) 0.0 0.0 (0.0-0.1) K/mm3 Comprehensive Metabolic Panel 03/13/20 03/14/20 Range/Units 19:52 01:18 Sodium 143 139 (137-145) mmol/L Potassium 3.8 3.6 (3.6-5.0) mmol/L Chloride 104.0 99.8 (98-107) mmol/L Carbon Dioxide 29 30 (22-30) mmol/L BUN 10 10 (7-17) mg/dL Creatinine 0.5 L 0.5 L (0.6-1.2) mg/dL Glucose 95 157 H (65-100) mg/dL Calcium 9.3 9.2 (8.4-10.2) mg/dL AST 22 (5-40) units/L ALT 15 (7-56) units/L Alkaline Phosphatase 97 (35-129) units/L Total Protein 6.2 L (6.3-8.2) g/dL Albumin 4.1 (3.9-5) g/dL - Imaging and Cardiology Echo: report reviewed (10/08/2019 - EF 50-55%, diastolic dysfxn) Cardiac cath: report reviewed (06/2018 - left main patent, LAD patent, Cfx patent, OM1 patent, all with mild luminal irregularities, RCA mid stent patent) EKG: report reviewed, image reviewed - EKG Interpretation EKG: no acute changes EKG interpretations - EKG Sinus rhythms and dysrhythmias: sinus rhythm Chamber hypertrophy or enlargement: left ventricular hypertro Assessment and Plan Await COVID-19 testing. Otherwise stable cardiac status. Continue home cardiac regimen. Pt may be discharged from a Cardiology perspective. Follow-up with Dr. Baldwin within 1-2 weeks ([phone]). Pt seen in conjunction with Dr. Hall, who agrees with the assessment and plan of care. - Patient Problems (1) Stable angina Current Visit: Yes Status: Chronic (2) Chronic respiratory failure Current Visit: Yes Status: Chronic Qualifiers: Qualified Code(s): J96.10 - Chronic respiratory failure, unspecified whether with hypoxia or hypercapnia (3) COPD (chronic obstructive pulmonary disease) Current Visit: Yes Status: Chronic Qualifiers: Qualified Code(s): J44.9 - Chronic obstructive pulmonary disease, unspecified (4) Obesity hypoventilation syndrome Current Visit: Yes Status: Chronic (5) GARRETT (obstructive sleep apnea) Current Visit: Yes Status: Chronic (6) Chronic heart failure with preserved ejection fraction (HFpEF) Current Visit: Yes Status: Chronic (7) PAF (paroxysmal atrial fibrillation) Current Visit: Yes Status: Chronic (8) Coronary artery disease Current Visit: Yes Status: Chronic Qualifiers: Coronary Disease-Associated Artery/Lesion type: [place] artery [place] vs. transplanted heart: [place] heart Associated angina: with stable angina Qualified Code(s): I25.118 - Atherosclerotic heart disease of [place] coronary artery with other forms of angina pectoris (9) Stented coronary artery Current Visit: Yes Status: Chronic (10) Hypertension Current Visit: Yes Status: Chronic Qualifiers: Hypertension type: essential hypertension Qualified Code(s): I10 - Essential (primary) hypertension (11) Hyperlipidemia Current Visit: Yes Status: Chronic Qualifiers: Hyperlipidemia type: mixed hyperlipidemia Qualified Code(s): E78.2 - Mixed hyperlipidemia (12) Hx pulmonary embolism Current Visit: Yes Status: Chronic (13) Seizure disorder Current Visit: Yes Status: Chronic (14) GERD (gastroesophageal reflux disease) Current Visit: Yes Status: Chronic
[2020-03-14] MEDS: APIXABAN 5 MG TAB PO SCH ×2 (13:19→21:25)
[2020-03-14] MEDS: carvediloL 12.5 MG TAB PO SCH ×2 (13:24→21:24)
[2020-03-14] MEDS: NYSTATIN POWDER 15 GM TP SCH (14:43)
[2020-03-14] MEDS: FLUTICASONE PROPIONATE NASAL SPRAY 16 GM NS SCH (14:43)
--- NOTE | 2020-03-14 18:14 | Progress Note ---
Assessment and Plan Assessment and plan: 74-year-old female with history of COPD, chronic respiratory failure on home oxygen, pulmonary embolism, reports paroxysmal A. fib, currently on Eliquis, history of heart disease, hypertension, arthritis was brought to the ER with a complaint of intermittent central chest pain 3/10 does not radiate for the past 2 days associated with shortness of breath. Patient complaining up nausea. No vomiting. positive lower extremity cramping and swelling. Initial cardiac enzyme in the ER is negative. Patient clinically stable, pain is chronic, she also states that she has had contact with someone with COVID, while her Oxygen demand has not changed she is concerned about being discharged without knowing her status. Covid 19 order placed. Cardiology consulted. Await COVID-19 testing. Otherwise stable cardiac status. Continue home cardiac regimen. (1) Stable angina Current Visit: Yes Status: Chronic (2) Chronic respiratory failure Current Visit: Yes Status: Chronic Qualifiers: Qualified Code(s): J96.10 - Chronic respiratory failure, unspecified whether with hypoxia or hypercapnia (3) COPD (chronic obstructive pulmonary disease) Current Visit: Yes Status: Chronic Qualifiers: Qualified Code(s): J44.9 - Chronic obstructive pulmonary disease, unspecified (4) Obesity hypoventilation syndrome Current Visit: Yes Status: Chronic (5) GARRETT (obstructive sleep apnea) Current Visit: Yes Status: Chronic (6) Chronic heart failure with preserved ejection fraction (HFpEF) Current Visit: Yes Status: Chronic (7) PAF (paroxysmal atrial fibrillation) Current Visit: Yes Status: Chronic (8) Coronary artery disease Current Visit: Yes Status: Chronic Qualifiers: Coronary Disease-Associated Artery/Lesion type: [place] artery [place] vs. transplanted heart: [place] heart Associated angina: with stable angina Qualified Code(s): I25.118 - Atherosclerotic heart disease of [place] coronary artery with other forms of angina pectoris (9) Stented coronary artery Current Visit: Yes Status: Chronic (10) Hypertension Current Visit: Yes Status: Chronic Qualifiers: Hypertension type: essential hypertension Qualified Code(s): I10 - Essential (primary) hypertension (11) Hyperlipidemia Current Visit: Yes Status: Chronic Qualifiers: Hyperlipidemia type: mixed hyperlipidemia Qualified Code(s): E78.2 - Mixed hyperlipidemia (12) Hx pulmonary embolism Current Visit: Yes Status: Chronic (13) Seizure disorder Current Visit: Yes Status: Chronic (14) GERD (gastroesophageal reflux disease) Current Visit: Yes Status: Chronic History Interval history: Patient seen and examined, resting comfortable. Hospitalist Physical - Physical exam Narrative exam: General appearance: Present: no acute distress - EENT Eyes: Present: PERRL ENT: hearing intact, clear oral mucosa - Neck Neck: Present: supple, normal ROM - Respiratory Respiratory effort: normal Respiratory: bilateral: diminished - Cardiovascular Rhythm: irregularly irregular Heart Sounds: Present: S1 & S2. Absent: rub, click - Extremities Extremities: pulses symmetrical, No edema Peripheral Pulses: within normal limits - Abdominal General gastrointestinal: Present: soft, non-tender, non-distended, normal bowel sounds Female genitourinary: Present: normal - Integumentary Integumentary: Present: clear, warm, dry - Musculoskeletal Musculoskeletal: gait normal, strength equal bilaterally - Psychiatric Psychiatric: appropriate mood/affect, intact judgment & insight - Constitutional Vitals: Temp Pulse Resp BP Pulse Ox 98.4 F 67 18 142/58 100 03/14/20 16:19 03/14/20 16:19 03/14/20 16:19 03/14/20 16:19 03/14/20 16:19 General appearance: Present: no acute distress HEART Score - HEART Score EKG: Non-specific Age: > 65 Risk factors: > 3 risk factors or hx of atherosclerotic disease Troponin: Troponin T < 0.010 ng/mL (0.00-0.029) 03/14/20 05:19 Troponin: < normal limit - Critical Actions Critical Actions: 4-6 pts:12-16.6% risk of adverse cardiac event. Should be admitted Results - Labs CBC & Chem 7: 03/14/20 01:18 03/14/20 01:18 Labs: Laboratory Last Values WBC 6.0 K/mm3 (4.5-11.0) 03/14/20 01:18 RBC 3.63 M/mm3 (3.65-5.03) L 03/14/20 01:18 Hgb 11.5 gm/dl (10.1-14.3) 03/14/20 01:18 Hct 34.6 % (30.3-42.9) 03/14/20 01:18 MCV 95 fl (79-97) 03/14/20 01:18 MCH 32 pg (28-32) 03/14/20 01:18 MCHC 33 % (30-34) 03/14/20 01:18 RDW 14.0 % (13.2-15.2) 03/14/20 01:18 Plt Count 271 K/mm3 (140-440) 03/14/20 01:18 Lymph % (Auto) 22.9 % (13.4-35.0) 03/14/20 01:18 [place] % (Auto) 3.4 % (0.0-7.3) 03/14/20 01:18 Eos % (Auto) 1.3 % (0.0-4.3) 03/14/20 01:18 Baso % (Auto) 0.4 % (0.0-1.8) 03/14/20 01:18 Lymph # (Auto) 1.4 K/mm3 (1.2-5.4) 03/14/20 01:18 [place] # (Auto) 0.2 K/mm3 (0.0-0.8) 03/14/20 01:18 Eos # (Auto) 0.1 K/mm3 (0.0-0.4) 03/14/20 01:18 Baso # (Auto) 0.0 K/mm3 (0.0-0.1) 03/14/20 01:18 Seg Neutrophils % 72.0 % (40.0-70.0) H 03/14/20 01:18 Seg Neutrophils # 4.3 K/mm3 (1.8-7.7) 03/14/20 01:18 PT 13.8 Sec. (12.2-14.9) 03/13/20 19:52 INR 1.08 (0.87-1.13) 03/13/20 19:52 D-Dimer 175.78 ng/mlDDU (0-234) 03/13/20 19:52 Sodium 139 mmol/L (137-145) 03/14/20 01:18 Potassium 3.6 mmol/L (3.6-5.0) 03/14/20 01:18 Chloride 99.8 mmol/L (98-107) 03/14/20 01:18 Carbon Dioxide 30 mmol/L (22-30) 03/14/20 01:18 Anion Gap 13 mmol/L 03/14/20 01:18 BUN 10 mg/dL (7-17) 03/14/20 01:18 Creatinine 0.5 mg/dL (0.6-1.2) L 03/14/20 01:18 Estimated GFR > 60 ml/min 03/14/20 01:18 BUN/Creatinine Ratio 20 % 03/14/20 01:18 Glucose 157 mg/dL (65-100) H 03/14/20 01:18 Calcium 9.2 mg/dL (8.4-10.2) 03/14/20 01:18 Phosphorus 3.50 mg/dL (2.5-4.5) 03/13/20 19:52 Magnesium 2.00 mg/dL (1.7-2.3) 03/13/20 19:52 Total Bilirubin 0.20 mg/dL (0.1-1.2) 03/13/20 19:52 AST 22 units/L (5-40) 03/13/20 19:52 ALT 15 units/L (7-56) 03/13/20 19:52 Alkaline Phosphatase 97 units/L (35-129) 03/13/20 19:52 Total Creatine Kinase 148 units/L (30-135) H 03/13/20 19:52 Troponin T < 0.010 ng/mL (0.00-0.029) 03/14/20 05:19 NT-Pro-B Natriuret Pep 222.5 pg/mL (0-900) 03/13/20 19:52 Total Protein 6.2 g/dL (6.3-8.2) L 03/13/20 19:52 Albumin 4.1 g/dL (3.9-5) 03/13/20 19:52 Albumin/Globulin Ratio 2.0 % 03/13/20 19:52 Triglycerides 59 mg/dL (2-149) 03/14/20 01:18 Cholesterol 129 mg/dL (50-199) 03/14/20 01:18 LDL Cholesterol Direct 62 mg/dL (50-130) 03/14/20 01:18 HDL Cholesterol 63 mg/dL (40-59) H 03/14/20 01:18 Cholesterol/HDL Ratio 2.04 % 03/14/20 01:18 Adams/IV: Voiding Method Toilet IV Catheter Type [Right Medial INT / Saline [place] Forearm] Active Medications - Current Medications Current Medications: Generic Name Dose Route Start Last Admin Trade Name Freq PRN Reason Stop Dose Admin Acetaminophen 650 mg 03/13/20 21:44 03/14/20 02:50 Acetaminophen 325 Mg Tab PO 650 mg Q6H PRN Administration Pain, Mild (1-3) Albuterol 2.5 mg 03/13/20 22:10 Albuterol 2.5 Mg/3 Ml Nebu IH Q4HRT PRN Shortness Of Breath Amlodipine Besylate 10 mg 03/14/20 10:00 03/14/20 10:15 Amlodipine 10 Mg Tab PO Not Given DAILY [facility] Apixaban 5 mg 03/13/20 22:00 03/14/20 13:19 Apixaban 5 Mg Tab PO 5 mg Q12H [facility] Administration Protocol Aspirin 81 mg 03/14/20 10:00 03/14/20 09:28 Aspirin 81 Mg Tab Chew PO 81 mg QDAY [facility] Administration Atorvastatin Calcium 40 mg 03/13/20 22:00 03/13/20 22:29 Atorvastatin 40 Mg Tab PO 40 mg QHS [facility] Administration Bisacodyl 10 mg 03/13/20 21:40 Bisacodyl 5 Mg Tab PO QDAY PRN Constipation Carbamazepine 200 mg 03/13/20 22:00 03/14/20 09:04 Carbamazepine 200 Mg Tab PO 200 mg Q12HR [facility] Administration Carvedilol 12.5 mg 03/13/20 22:00 03/14/20 13:24 Carvedilol 12.5 Mg Tab PO 12.5 mg BID [facility] Administration Dexamethasone 6 mg 03/13/20 22:00 03/13/20 22:29 Dexamethasone 4 Mg Tab PO 6 mg Q24H [facility] Administration Escitalopram Oxalate 20 mg 03/13/20 22:00 03/14/20 09:08 Escitalopram 10 Mg Tab PO 20 mg DAILY [facility] Administration Fluticasone Propionate 100 mcg 03/13/20 22:00 03/14/20 14:43 Fluticasone Propionate Nasal [place] 16 Gm NS Not Given QDAY [facility] Levetiracetam 750 mg 03/13/20 22:00 03/14/20 09:02 Levetiracetam 500 Mg Tab PO 750 mg BID [facility] Administration Losartan Potassium 50 mg 03/14/20 10:00 03/14/20 10:16 Losartan 50 Mg Tab PO Not Given QDAY [facility] Nitroglycerin 0.4 mg 03/13/20 22:00 Nitroglycerin 0.4 Mg Tab Subl SL Q5M PRN Chest Pain Nystatin 1 applic 03/14/20 08:00 03/14/20 14:43 Nystatin Powder 15 Gm TP 1 applic TID [facility] Administration Ondansetron HCl 4 mg 03/14/20 03:00 03/14/20 17:35 Ondansetron 4 Mg/2 Ml Inj IV Not Given Q6H [facility] Pantoprazole Sodium 40 mg 03/14/20 10:00 03/14/20 09:06 Pantoprazole 40 Mg Tab PO 40 mg QDAY [facility] Administration Phenytoin 300 mg 03/13/20 22:00 03/13/20 22:26 Phenytoin 100 Mg Capsule.Er PO 300 mg QHS [facility] Administration Ranolazine 1,000 mg 03/13/20 22:00 03/14/20 09:27 Ranolazine Er 500 Mg Tab 12hr PO 1,000 mg BID [facility] Administration Sodium Chloride 10 ml 03/13/20 21:44 03/14/20 09:05 Sodium Chloride 0.9% 10 Ml Flush Syringe IV 10 ml PRN PRN Administration LINE FLUSH
[2020-03-14] MEDS: PHENYTOIN 100 MG CAPSULE.ER PO SCH (21:25)
[2020-03-14] MEDS: DEXAMETHASONE 4 MG TAB PO SCH (21:25)
[2020-03-15] MEDS: ONDANSETRON 4 MG/2 ML INJ IV SCH ×4 (03:00→21:00)
[2020-03-15] MEDS: RANOLAZINE ER 500 MG TAB 12HR PO SCH ×2 (09:19→22:00)
[2020-03-15] MEDS: LOSARTAN 50 MG TAB PO SCH (09:19)
[2020-03-15] MEDS: carvediloL 12.5 MG TAB PO SCH ×2 (09:19→21:00)
[2020-03-15] MEDS: ASPIRIN 81 MG TAB CHEW PO SCH (09:19)
[2020-03-15] MEDS: ESCITALOPRAM 10 MG TAB PO SCH (09:19)
[2020-03-15] MEDS: levETIRAcetam 500 MG TAB PO SCH ×2 (09:19→22:00)
[2020-03-15] MEDS: PANTOPRAZOLE 40 MG TAB PO SCH (09:20)
[2020-03-15] MEDS: carBAMazepine 200 MG TAB PO SCH ×2 (09:20→22:00)
[2020-03-15] MEDS: amLODIPine 10 MG TAB PO SCH (09:20)
[2020-03-15] MEDS: APIXABAN 5 MG TAB PO SCH ×2 (09:21→22:00)
[2020-03-15] MEDS: NYSTATIN POWDER 15 GM TP SCH ×2 (09:25→14:19)
[2020-03-15] MEDS: FLUTICASONE PROPIONATE NASAL SPRAY 16 GM NS SCH (14:14)
[2020-03-15 16:55] VITALS: BP 134/43
[2020-03-15] MEDS: PHENYTOIN 100 MG CAPSULE.ER PO SCH (22:00)
[2020-03-15] MEDS: DEXAMETHASONE 4 MG TAB PO SCH (22:00)
== END 2020-03-16 01:50 | disposition home health service (06) ==
LOC: ED 17:58 → 4A 21:27
PROVIDERS: ADMIT Hospitalist; ATTEND Internal Medicine
DX: J96.10 Chronic respiratory failure, unspecified whether with hypoxia or hypercapnia (principal); Z20.828 Contact with and (suspected) exposure to other viral communicable diseases; R07.89 Other chest pain; I25.10 Atherosclerotic heart disease of native coronary artery without angina pectoris; J44.9 Chronic obstructive pulmonary disease, unspecified; I48.91 Unspecified atrial fibrillation; I11.0 Hypertensive heart disease with heart failure; I50.32 Chronic diastolic (congestive) heart failure; K21.9 Gastro-esophageal reflux disease without esophagitis; D57.1 Sickle-cell disease without crisis; E78.5 Hyperlipidemia, unspecified; M19.90 Unspecified osteoarthritis, unspecified site; E66.2 Morbid (severe) obesity with alveolar hypoventilation; I48.0 Paroxysmal atrial fibrillation; R56.9 Unspecified convulsions; Z90.49 Acquired absence of other specified parts of digestive tract; Z86.711 Personal history of pulmonary embolism; Z79.82 Long term (current) use of aspirin; Z95.1 Presence of aortocoronary bypass graft; Z98.890 Other specified postprocedural states; Z68.35 Body mass index [BMI] 35.0-35.9, adult
CPT/HCPCS: 36415; 71046; 80048; 80053; 80061; 82550; 83735; 83880; 84100; 84484; 85025; 85379; 85610; 87641; 93005; 94760; 96374; 96376; 97162; 99285; A9270; G0378; J2405; J8540; U0003

== ENCOUNTER 2020-03-24 06:24 | Day surgery (SDC) | payer MEDICARE ==
[2020-03-24 07:40] LABS: Basophils % (Auto) 0.8 % (0.0-1.8); Eosinophils # (Auto) 0.1 K/mm3 (0.0-0.4); Eosinophils % (Auto) 1.5 % (0.0-4.3); Hemoglobin 11.7 gm/dl (10.1-14.3); Lymphocytes % (Auto) 38.8 % (13.4-35.0); Mean Corpuscular HGB Conc 33 % (30-34); Mean Corpuscular Volume 96 fl (79-97); Monocytes # (Auto) 0.4 K/mm3 (0.0-0.8); Monocytes % (Auto) 7.9 % (0.0-7.3); Platelet Count 280 K/mm3 (140-440); Red Blood Count 3.64 M/mm3 (3.65-5.03); Red Cell Distribution Width 13.8 % (13.2-15.2)
[2020-03-24 07:48] LABS: INR 1.02 (0.87-1.13)
[2020-03-24 07:49] LABS: Partial Thromboplastin Time 25.2 Sec. (24.2-36.6)
[2020-03-24 08:31] LABS: BUN/Creatinine Ratio 20; Blood Urea Nitrogen 10 mg/dL (7-17); Calcium 8.9 mg/dL (8.4-10.2); Hemolysis Index 11
[2020-03-24] MEDS: SODIUM CHLORIDE 0.9% 500 ML 500 ML IV SCH ×2 (08:46→09:30)
[2020-03-24] MEDS ORDERED: LIDOCAINE (2%) 20 MG/1 ML VIAL 20 ML MDV INFILTRATI ONE ×2 (09:03→09:36)
[2020-03-24] MEDS ORDERED: fentaNYL 100 MCG/2 ML INJ ONE ×2 (09:03→11:31)
[2020-03-24] MEDS ORDERED: MIDAZOLAM 2 MG/2 ML INJ ONE (09:03)
[2020-03-24] MEDS ORDERED: HEPARIN 10,000 UNITS/10 ML VIAL ONE (09:03)
[2020-03-24] MEDS ORDERED: HEPARIN/NS 5000 UNIT/500ML 1,000 ML IR ONE (09:03)
[2020-03-24] MEDS ORDERED: NITROGLYCERIN SYRINGE 3 ML ONE (09:03)
[2020-03-24] MEDS ORDERED: VERAPAMIL 5 MG/2 ML INJ ONE (09:03)
[2020-03-24] MEDS ORDERED: hydrALAZINE 20 MG/1 ML INJ ONE (09:46)
[2020-03-24] MEDS ORDERED: ONDANSETRON 4 MG/2 ML INJ ONE (10:41)
--- NOTE | 2020-03-24 10:41 | Cardiac Catherization Report ---
CARDIAC CATHETERIZATION REFERRING PHYSICIAN: Dr. Suraj Balwdin. INDICATION FOR PROCEDURE: The patient is a 74-year-old -[place] female with history of hypertension, history of CAD, PCI, presents with recurrent chest pain, referred for left heart catheterization. Risks, benefits, alternatives discussed prior to obtaining informed consent. PROCEDURE IN DETAIL: The patient was brought to catheterization lab in a postabsorptive state, prepped and draped in sterile fashion, unable to access the right radial, just groin approach was used. A 6-[place] sheath was used to cannulate the right common femoral artery via modified Seldinger technique. All exchanges performed to exchange a J-tip guidewire. JL3.5 catheter used to engage the left main. No dampening or ventricularization. Cineangiography performed in multiple projections. JR4 catheter used to cross the aortic valve under fluoroscopic guidance. Left ventriculography performed in 30 [place] and 30 [place] projections via hand injections. Manual pullback performed with continuous pressure monitoring. Catheter used to engage the right coronary. No dampening or ventricularization. Cineangiography performed in all projections. Root aortography was performed due to recurrent chest pain, hypertension and unremarkable coronaries. A pigtail catheter placed in the aortic root in the H[place] projection with power injector. Root aortography was performed. Next, catheter removed from the body of wire, sheath removed. Manual pressure was used to achieve hemostasis. I directly supervised the administration of moderate sedation from 02:10 to 03:00 a.m. There were no immediate complications. DATA: Aortic pressure is 170/80, LV pressure is 170, LVEDP of 25 mmHg. Left ventriculography revealed normal systolic performance with estimated ejection fraction of 50-55%. No evidence of aortic stenosis. CORONARY ANATOMY: This is a right dominant system. Left main without significant disease and bifurcates into left anterior descending and left circumflex. Left circumflex is a moderate sized vessel. No significant disease. Left main without significant disease. LAD is a moderate sized vessel, tortuous 25% mid LAD stenosis, but no other significant disease noted. Right coronary artery is a moderate sized vessel, courses AV groove, distally bifurcates into posterior and posterolateral branches. Stent in the mid right coronary is widely patent with no other significant disease. Root aortography reveals normal contour, no evidence of dissection, penetrating aortic ulcer or aortic insufficiency. The patient remained in normal sinus rhythm throughout the procedure. CONCLUSIONS: 1. No angiographic evidence of significant epicardial coronary artery disease in this right dominant system. Patent mid RCA stent and 25% mid LAD stenosis. 2. Normal left ventricular systolic performance, estimated ejection fraction of 50-55%. No evidence of aortic stenosis. 3. Mildly elevated LVEDP. 4. Systemic arterial hypertension. 5. Root aortography without evidence of dissection, penetrating aortic ulcer or aortic insufficiency. PLAN: Adequate blood pressure control, standard groin care, primary and secondary prevention measures. Results of procedure explained in length to the patient and family. All questions and concerns were addressed. Follow up with Dr. Baldwin in the office. JOB# [id number] SBJoan/NEEL
[2020-03-24] MEDS ORDERED: HYDROcodone/ACETAMINOPHEN 5-325 MG TAB ONE (10:42)
[2020-03-24] MEDS ORDERED: ONDANSETRON 4 MG/2 ML INJ IV ONE (10:43)
[2020-03-24] MEDS ORDERED: HYDROcodone/ACETAMINOPHEN 5-325 MG TAB PO ONE (10:44)
[2020-03-24] MEDS ORDERED: fentaNYL 100 MCG/2 ML INJ IV ONE (11:31)
--- NOTE | 2020-03-24 12:58 | Short Stay Summary ---
Short Stay Documentation Date of service: 03/24/20 - History H&P: obtained from office - Allergies and Medications Current Medications: Allergies morphine Allergy (Severe, Verified 01/06/15 13:14) hallucination Home Medications Medication Instructions Recorded Confirmed Last Taken Type levETIRAcetam 750 mg PO BID 05/25/14 03/24/20 03/24/20 History Escitalopram [Lexapro] 20 mg PO DAILY tablet 05/27/14 03/24/20 03/24/20 Rx Fluticasone [Flonase] 2 spray NS QDAY 08/12/14 03/24/20 03/23/20 History Rosuvastatin (Nf) [Crestor] 20 mg PO QHS 08/12/14 10/09/19 03/23/20 History Amlodipine Besylate [Norvasc] 10 mg PO DAILY 30 Days tablet 11/19/14 03/24/20 03/24/20 Rx carvediloL [Coreg] 12.5 mg PO BID #60 tablet 11/19/14 03/24/20 03/24/20 Rx Aspirin [Aspirin BABY CHEW TAB] 81 mg PO QDAY #30 tab.chew 05/17/16 03/24/20 03/24/20 Rx Albuterol Mdi (or & Nicu Only) 2 puff IH QID PRN 09/24/16 03/24/20 03/23/20 History [ProAir HFA Inhaler] Budesoni/Formotero 160-4.5(Nf) 2 puff IH BID 09/24/16 03/24/20 03/23/20 History [Symbicort 160-4.5 (Nf)] Apixaban [Eliquis] 5 mg PO Q12H 08/21/19 03/24/20 03/21/20 History carBAMazepine [TEGretol] 200 mg PO Q12HR 08/21/19 03/24/20 03/24/20 History Active Medications Sodium Chloride (Nacl 0.9% 500 Ml) 500 mls @ 50 mls/hr IV DIRECT TRANG Stop: 03/24/20 16:59 Last Admin: 03/24/20 09:30 Dose: 50 mls/hr Documented by: - Brief post op/procedure progress note Date of procedure: 03/24/20 Pre-op diagnosis: CAD Post-op diagnosis: same Procedure: LHC - see dictated cath report Anesthesia: local Estimated blood loss: none Condition: stable - Disposition Condition at discharge: Good Disposition: DC-01 TO HOME OR SELFCARE - Discharge Diagnoses (1) Coronary artery disease Status: Chronic Qualifiers: (2) Stented coronary artery Status: Chronic (3) Hypertension Status: Chronic Qualifiers: Short Stay Discharge Plan Activity: advance as tolerated Diet: low fat, low cholesterol, low salt Wound: open to air, keep clean and dry, per your surgeon's advice Follow up with: JOANNE MULLINS MD [Primary Care Provider] - 7 Days
--- NOTE | 2020-03-24 13:40 | Cat Scan Report ---
CT ABDOMEN AND PELVIS WITHOUT CONTRAST INDICATION / CLINICAL INFORMATION: Abdominal pain post LHC. TECHNIQUE: Axial CT images were obtained through the abdomen and pelvis without IV contrast. All CT scans at this location are performed using CT dose reduction for ALARA by means of automated exposure control. COMPARISON: 03/31/2019 FINDINGS: Dependent changes in the lung bases. Heart is enlarged with trace pericardial effusion. Gallbladder is absent. Inferior right hepatic cyst is noted. Liver is otherwise unremarkable. Pancrea s, spleen, adrenals, a kidneys demonstrate no acute abnormality. Bladder is unremarkable. Uterus is a bsent. Small bowel is normal in caliber. Postsurgical changes of the small bowel right abdomen. There are sc attered colonic diverticula without CT evidence of diverticulitis. Moderate amount of retained stool within the cecum, which is low lying. No colonic wall thickening or pericolonic inflammatory strandin g. No evidence of appendicitis. There is inflammatory stranding in the right inguinal region related to recent heart catheterization. Calcified atherosclerotic plaque is noted throughout the nonaneurysmal abdominal aorta and its branch es. No free fluid or adenopathy. No acute osseous findings. Postoperative changes of the lumbosacral junction, intact. IMPRESSION: No acute abnormality of the abdomen or pelvis. Signer Name: Francisco Genao MD Signed: 03/24/2020 1:35 PM Workstation Name: [id number]
[2020-03-24 15:16] VITALS: BP 152/68
== END 2020-03-24 16:00 | disposition home or self-care (01) ==
LOC: CATHLABREC 06:24
PROVIDERS: ATTEND Internal Medicine
DX: R07.89 Other chest pain (principal); I25.118 Atherosclerotic heart disease of native coronary artery with other forms of angina pectoris; G40.909 Epilepsy, unspecified, not intractable, without status epilepticus; E78.5 Hyperlipidemia, unspecified; J44.9 Chronic obstructive pulmonary disease, unspecified; I11.0 Hypertensive heart disease with heart failure; I50.32 Chronic diastolic (congestive) heart failure; M19.90 Unspecified osteoarthritis, unspecified site; R10.9 Unspecified abdominal pain; Z87.01 Personal history of pneumonia (recurrent); Z79.82 Long term (current) use of aspirin; Z87.891 Personal history of nicotine dependence; Z86.711 Personal history of pulmonary embolism; Z86.718 Personal history of other venous thrombosis and embolism; Z79.899 Other long term (current) drug therapy; Z88.5 Allergy status to narcotic agent; Z90.49 Acquired absence of other specified parts of digestive tract; Z83.3 Family history of diabetes mellitus; Z82.49 Family history of ischemic heart disease and other diseases of the circulatory system
CPT/HCPCS: 36415; 74176; 80048; 85025; 85610; 85730; 93005; 93458; 93567; 99156; 99157; C1894; J0360; J1644; J2250; J2405; J3010; J7040; Q9967

== ENCOUNTER 2020-07-28 13:38 | Emergency (ER) | payer MEDICARE ==
[2020-07-28 14:46] VITALS: BP 149/62
--- NOTE | 2020-07-28 16:03 | Event Note ---
ED Screening Note Date of service: 07/28/20 Time: 16:01 ED Screening Note: 75-year-old female with history of atrial fibrillation and recurrent PE/DVT, currently on Eliquis, presents to the emergency department with complaints of nontraumatic swelling to her right ankle and diffuse pain throughout her right lower extremity for 3 days. States she has been compliant with her medications. No chest pain or shortness of breath. General: Awake, appropriately interactive, no acute distress. Neck: Supple. Full range of motion intact. Cardiovascular: Normal peripheral perfusion. Pulmonary: No respiratory distress. Patient is speaking normally without use of accessory muscles. Skin: No apparent rashes or lesions. Neurological: No facial asymmetry. Speech is clear. Follows commands. Patient is alert and oriented. Musculoskeletal: Poorly localized soft tissue swelling noted to the right ankle without reproducible tenderness. Right calf tenderness. Patient states pain extends proximally to the posterior right thigh. Psych: Cooperative. Appropriate mood and affect. I have greeted and performed a focused rapid initial assessment of this patient. A comprehensive ED assessment and evaluation of the patient, analysis of all test results, and completion of the medical decision-making process will be conducted by additional ED providers. This initial assessment/diagnostic orders/clinical plan/treatment(s) is/are subject to change based on patients health status, clinical progression and re-assessment. Further treatment and workup at subsequent clinical provider's discretion. Patient/guardian urged not to elope from the ED as their condition may be serious if not clinically a ssessed and managed.
--- NOTE | 2020-07-28 16:48 | Vascular Lab Report ---
DUPLEX DOPPLER LOWER EXTREMITY VEINS, RIGHT INDICATION: pain/swelling of RLE; hx DVT + PE; on Eliquis. TECHNIQUE: Duplex doppler imaging was performed through the veins of the right lower extremity using venous comp ression and other maneuvers. COMPARISON: None available. FINDINGS: Common Femoral vein: Negative. Superficial Femoral vein: Negative. Popliteal vein: Negative. Calf veins: Negative. Additional findings: None. IMPRESSION: 1. No sonographic evidence for DVT in the right lower extremity. Signer Name: Zac Perez MD Signed: 07/28/2020 4:43 PM Workstation Name: [id number]
[2020-07-28 17:33] LABS: Hematocrit 38.1 % (30.3-42.9); Hemoglobin 12.4 gm/dl (10.1-14.3); Mean Corpuscular HGB Conc 33 % (30-34); Mean Corpuscular Volume 98 fl (79-97); Platelet Count 273 K/mm3 (140-440); Red Blood Count 3.89 M/mm3 (3.65-5.03); Red Cell Distribution Width 14.3 % (13.2-15.2)
[2020-07-28 17:43] LABS: INR 1.12 (0.87-1.13); Partial Thromboplastin Time 29.2 Sec. (24.2-36.6)
--- NOTE | 2020-07-28 17:45 | Emergency Department Report ---
ED Extremity Problem HPI - General Chief complaint: Extremity Problem,Nontraumatic Stated complaint: RT ANKEL SWELLING Time Seen by Provider: 07/28/20 17:24 Source: patient Mode of arrival: Ambulatory Limitations: No Limitations - History of Present Illness Initial comments: 75-year-old female with past medical history of hypertension, hyperlipidemia, CA D status post stent placement/UT, A. fib, and history of PE currently on Eliquis presents to the ER today with complaints of right ankle pain and swelling. Patient states that she woke up with the pain and swelling 3 days ago. She denies any particular injury and she denies any recent strenuous activity. She states that the pain is worse with ambulation and weightbearing. She denies any apparent bruising, or redness to the area. She denies any known history of gout or arthritis. She denies any calf pain. She states that she has chronic shortness of breath but nothing worse recently and she denies any chest pain. She states that she is been taking Tylenol for the pain but without much relief of her pain. She states that she came in because she was concerned for blood clot. MD Complaint: joint swelling, joint paint -: days(s) (3) - Related Data Home Medications Medication Instructions Recorded Confirmed Last Taken levETIRAcetam 750 mg PO BID 05/25/14 03/24/20 03/24/20 Fluticasone [Flonase] 2 spray NS QDAY 08/12/14 03/24/20 03/23/20 Rosuvastatin (Nf) [Crestor] 20 mg PO QHS 08/12/14 10/09/19 03/23/20 Albuterol Mdi (or & Nicu Only) 2 puff IH QID PRN 09/24/16 03/24/20 03/23/20 [ProAir HFA Inhaler] Budesoni/Formotero 160-4.5(Nf) 2 puff IH BID 09/24/16 03/24/20 03/23/20 [Symbicort 160-4.5 (Nf)] Apixaban [Eliquis] 5 mg PO Q12H 08/21/19 03/24/20 03/21/20 carBAMazepine [TEGretol] 200 mg PO Q12HR 08/21/19 03/24/20 03/24/20 Previous Rx's Medication Instructions Recorded Last Taken Type Escitalopram [Lexapro] 20 mg PO DAILY tablet 05/27/14 03/24/20 Rx Amlodipine Besylate [Norvasc] 10 mg PO DAILY 30 Days tablet 11/19/14 03/24/20 Rx carvediloL [Coreg] 12.5 mg PO BID #60 tablet 11/19/14 03/24/20 Rx Aspirin [Aspirin BABY CHEW TAB] 81 mg PO QDAY #30 tab.chew 05/17/16 03/24/20 Rx Diclofenac 1% [Diclofenac 1% 2 gm TP QID #1 tube 07/28/20 Unknown Rx topical gel] HYDROcodone/APAP 5-325 [[place] 1 each PO Q4HR PRN #10 tablet 07/28/20 Unknown Rx 5/325] Allergies Allergy/AdvReac Type Severity Reaction Status Date / Time morphine Allergy Severe hallucinati Verified 01/06/15 13:14 on ED Review of Systems ROS: Stated complaint: RT ANKEL SWELLING Other details as noted in HPI Comment: All other systems reviewed and negative Constitutional: denies: chills, fever Eyes: denies: eye pain, eye discharge, vision change ENT: denies: ear pain, throat pain Respiratory: shortness of breath (Chronic, nothing worse recently). denies: cough, SOB at rest, wheezing Cardiovascular: denies: chest pain, palpitations, dyspnea on exertion, edema, syncope, paroxysmal nocturnal dyspnea Gastrointestinal: denies: abdominal pain, nausea, diarrhea, constipation, hematemesis, melena, hematochezia Genitourinary: denies: urgency, dysuria, discharge Musculoskeletal: joint swelling, arthralgia. denies: back pain Skin: denies: rash, lesions, change in color, change in hair/nails, pruritus Neurological: abnormal gait. denies: headache, weakness, numbness, paresthesias, confusion Psychiatric: denies: anxiety, depression, auditory hallucinations, visual hallucinations, homicidal thoughts, suicidal thoughts Hematological/Lymphatic: denies: easy bleeding, easy bruising, swollen glands ED Past Medical Hx - Past Medical History Previous Medical History?: Yes Hx Hypertension: Yes Hx Heart Attack/AMI: No Hx Congestive Heart Failure: Yes Hx Diabetes: No Hx Deep Vein Thrombosis: No Hx Pulmonary Embolism: Yes (2011) Hx Sickle Cell Disease: No Hx Arthritis: Yes Hx Seizures: Yes Hx Asthma: No Hx COPD: Yes (Home O2) Hx Tuberculosis: No Hx Dementia: No Hx HIV: No Additional medical history: Beneign Brain Tumor - Surgical History Hx Coronary Stent: Yes Hx Open Heart Surgery: No Hx Pacemaker: No Hx Internal Defibrillator: No Hx Cholecystectomy: Yes Hx Appendectomy: No Hx Breast Surgery: No Additional Surgical History: Brain Surgery x 2, Hysterectomy, [place], Her prudence, Bowl Obstruction x 3, Back surgery. right hip surgery - Social History Smoking Status: Former Smoker - Medications Home Medications: Home Medications Medication Instructions Recorded Confirmed Last Taken Type levETIRAcetam 750 mg PO BID 05/25/14 03/24/20 03/24/20 History Escitalopram [Lexapro] 20 mg PO DAILY tablet 05/27/14 03/24/20 03/24/20 Rx Fluticasone [Flonase] 2 spray NS QDAY 08/12/14 03/24/20 03/23/20 History Rosuvastatin (Nf) [Crestor] 20 mg PO QHS 08/12/14 10/09/19 03/23/20 History Amlodipine Besylate [Norvasc] 10 mg PO DAILY 30 Days tablet 11/19/14 03/24/20 03/24/20 Rx carvediloL [Coreg] 12.5 mg PO BID #60 tablet 11/19/14 03/24/20 03/24/20 Rx Aspirin [Aspirin BABY CHEW TAB] 81 mg PO QDAY #30 tab.chew 05/17/16 03/24/20 03/24/20 Rx Albuterol Mdi (or & Nicu Only) 2 puff IH QID PRN 09/24/16 03/24/20 03/23/20 History [ProAir HFA Inhaler] Budesoni/Formotero 160-4.5(Nf) 2 puff IH BID 09/24/16 03/24/20 03/23/20 History [Symbicort 160-4.5 (Nf)] Apixaban [Eliquis] 5 mg PO Q12H 08/21/19 03/24/20 03/21/20 History carBAMazepine [TEGretol] 200 mg PO Q12HR 08/21/19 03/24/20 03/24/20 History Diclofenac 1% [Diclofenac 1% 2 gm TP QID #1 tube 07/28/20 Unknown Rx topical gel] HYDROcodone/APAP 5-325 [[place] 1 each PO Q4HR PRN #10 tablet 07/28/20 Unknown Rx 5/325] ED Physical Exam - General Limitations: No Limitations General appearance: alert, in no apparent distress - Head Head exam: Present: atraumatic, normocephalic, normal inspection - Eye Eye exam: Present: normal appearance, PERRL, EOMI Pupils: Present: normal accommodation - ENT ENT exam: Present: normal exam, mucous membranes moist, TM's normal bilaterally - Neck Neck exam: Present: normal inspection, full ROM - Respiratory Respiratory exam: Present: normal lung sounds bilaterally. Absent: respiratory distress, wheezes, rales, rhonchi, stridor - Cardiovascular Cardiovascular Exam: Present: regular rate, normal rhythm, normal heart sounds - Expanded Lower Extremity Exam Right Lower Leg exam: Absent: normal inspection, tenderness, swelling, abrasion, laceration, ecchymosis, deformity, crepidus, dislocation, erythema, palpable cord, Felix's sign Ankle exam: Present: full ROM (She does have full range of motion of the ankle but with some mild pain), tenderness (Moderate tenderness to palpation medial aspect of the right ankle), swelling (Mild swelling noted diffusely to the right ankle). Absent: abrasion, laceration, ecchymosis, deformity, crepidus, dislocation, erythema Foot/Toe exam: Present: normal inspection, full ROM. Absent: tenderness, swelling, abrasion, laceration, ecchymosis, deformity, dislocation, erythema, amputation, puncture wound, foreign body, calcaneal tenderness, tenderness at base of 5th metatarsal, nail avulsion, subungual hematoma Neuro vascular tendon exam: Absent: no vascular compromise, pulse deficit, abnormal cap refill, motor deficit, sensory deficit - Neurological Exam Neurological exam: Present: alert, oriented X3, CN II-XII intact. Absent: motor sensory deficit - Psychiatric Psychiatric exam: Present: normal affect, normal mood - Skin Skin exam: Present: intact ED Course Vital Signs 07/28/20 14:46 Temperature 97.8 F Pulse Rate 60 Respiratory 20 Rate Blood Pressure 149/62 [Right] O2 Sat by Pulse 94 Oximetry ED Medical Decision Making - Lab Data Result diagrams: 07/28/20 17:01 07/28/20 17:01 - Radiology Data Radiology results: report reviewed Patient: RODNEY FAY MR#: [id number] : 1945 Acct:[id number] Age/Sex: 75 / F ADM Date: 07/28/20 Loc: ED Attending Dr: Ordering Physician: JOSE F JAIN Date of Service: 07/28/20 Procedure(s): VL venous duplex LE RT Accession Number(s): [id number] cc: JOSE F JAIN DUPLEX DOPPLER LOWER EXTREMITY VEINS, RIGHT INDICATION: pain/swelling of RLE; hx DVT + PE; on Eliquis. TECHNIQUE: Duplex doppler imaging was performed through the veins of the right lower extremity using venous compression and other maneuvers. COMPARISON: None available. FINDINGS: Common Femoral vein: Negative. Superficial Femoral vein: Negative. Popliteal vein: Negative. Calf veins: Negative. Additional findings: None. IMPRESSION: 1. No sonographic evidence for DVT in the right lower extremity. Signer Name: Zac Perez MD Signed: 07/28/2020 4:43 PM Workstation Name: [id number] Transcribed By: Dictated By: Zac Perez MD Electronically Authenticated By: Zac Perez MD Signed Date/Time: 07/28/201642 DD/ 42 TD/TT: Patient: RODNEY FAY MR#: [id number] : 1945 Acct:[id number] Age/Sex: 75 / F ADM Date: 07/28/20 Loc: ED Attending Dr: Ordering Physician: JOEY BANUELOS Date of Service: 07/28/20 Procedure(s): XR ankle 2V RT Accession Number(s): [id number] cc: JOEY BANUELOS Fluoro Time In Minutes: RIGHT ANKLE 3 VIEWS INDICATION / CLINICAL INFORMATION: Ankle pain COMPARISON: None available. FINDINGS: BONES / JOINT(S): There is a small ossification/calcification anterior to the distal tibia which may be dystrophic calcification. This may represent a tiny avulsion fragment. This is seen on the lateral view. No fracture is seen otherwise. There is mild degenerative change in the first and second tarsal metatarsal joints. SOFT TISSUES: There is soft tissue swelling. ADDITIONAL FINDINGS: None. Signer Name: Tarik Hurtado MD Signed: 07/28/2020 6:10 PM Workstation Name: [id number] Transcribed By: SS Dictated By: Tarik Hurtado MD Electronically Authenticated By: Tarik Hurtado MD Signed Date/Time: 07/28/201809 DD/ 06 TD/TT: - Medical Decision Making 75-year-old female with past medical history of hypertension, hyperlipidemia, CAD status post stent placement/UT, A. fib, and history of PE currently on Eliquis presents to the ER today with complaints of right ankle pain and swelling. Patient states that she woke up with the pain and swelling 3 days ago. She denies any particular injury and she denies any recent strenuous activity. She states that the pain is worse with ambulation and weightbearing. She denies any apparent bruising, or redness to the area. She denies any known history of gout or arthritis. She denies any calf pain. She states that she has chronic shortness of breath but nothing worse recently and she denies any chest pain. She states that she is been taking Tylenol for the pain but without much relief of her pain. She states that she came in because she was concerned for blood clot. Labs reviewed and shows nothing acute. Venous doppler negative for DVT. Ankle xray shows here is a small ossification/calcification anterior to the distal tibia which may be dystrophic calcification. This may represent a tiny avulsion fragment. This is seen on the lateral view. No fracture is seen otherwise. There is mild degenerative change in the first and second tarsal metatarsal joints. There is soft tissue swelling. Patient is currently resting comfortable. She is not in any acute pain distress. She is well appearing, non toxic, well hydrated and neurologically intact. Reviewed results with patient. She denies any prior injury to her ankle. Timo wrap will be applied and she was instructed to use her walker that she has at home to help ambulate. Also recommend close follow up with Ortho next week for further evaluation of her ankle pain as she may need MRI if symptoms persist. At this time her exam does not suggest septic joint, cellulitis, acute arterial occlusion, CHF or any other emergent conditions warranting further testing, specialist consult or admission. Discussed suspected diagnoses with patient. Pt expressed understanding of instructions and agreed with plan. Pt stable at time of d/c. Critical care attestation.: If time is entered above; I have spent that time in minutes in the direct care of this critically ill patient, excluding procedure time. ED Disposition Clinical Impression: Ankle pain, right Disposition: DC-01 TO HOME OR SELFCARE Is pt being admited?: No Does the pt Need Aspirin: No Condition: Stable Instructions: Ankle Pain Additional Instructions: Use walker to help ambulate and Do the TIMO wrap as discussed. Take the norco and use ointment rub as prescribed to help with pain. It is important that you follow up with [facility] next week for further evaluation of your ankle pain. Return to ED if worse. Prescriptions: Diclofenac 1% [Diclofenac 1% topical gel] 2 gm TP QID #1 tube HYDROcodone/APAP 5-325 [[place] 5/325] 1 each PO Q4HR PRN #10 tablet PRN Reason: Pain Referrals: JOANNE MULLINS MD [Primary Care Provider] - 3-5 Days YADIRA ARRIOLA MD [Staff Physician] - 3-5 Days ([facility]) Time of Disposition: 18:46
[2020-07-28 17:46] LABS: Blood Urea Nitrogen 8 mg/dL (7-17); Calcium 9.3 mg/dL (8.4-10.2); Hemolysis Index 11
[2020-07-28 18:00] LABS: BUN/Creatinine Ratio 16
--- NOTE | 2020-07-28 18:14 | XRay Report ---
RIGHT ANKLE 3 VIEWS INDICATION / CLINICAL INFORMATION: Ankle pain COMPARISON: None available. FINDINGS: BONES / JOINT(S): There is a small ossification/calcification anterior to the distal tibia which may be dystrophic calcification. This may represent a tiny avulsion fragment. This is seen on the lateral view. No fracture is seen otherwise. There is mild degenerative change in the first and second tarsa l metatarsal joints. SOFT TISSUES: There is soft tissue swelling. ADDITIONAL FINDINGS: None. Signer Name: Tarik Hurtado MD Signed: 07/28/2020 6:10 PM Workstation Name: [id number]
[2020-07-28] MEDS ORDERED: HYDROcodone/ACETAMINOPHEN 5-325 MG TAB PO ONE (18:50)
[2020-07-28] MEDS ORDERED: dexAMETHasone 20 MG/5 ML VIAL IM ONE (18:50)
== END 2020-07-28 20:40 | disposition home or self-care (01) ==
LOC: ED 13:38
DX: M25.571 Pain in right ankle and joints of right foot (principal); M79.89 Other specified soft tissue disorders; I11.0 Hypertensive heart disease with heart failure; I50.9 Heart failure, unspecified; M19.91 Primary osteoarthritis, unspecified site; J44.9 Chronic obstructive pulmonary disease, unspecified; R56.9 Unspecified convulsions; Z87.891 Personal history of nicotine dependence; Z79.899 Other long term (current) drug therapy; Z98.890 Other specified postprocedural states; Z88.8 Allergy status to other drugs, medicaments and biological substances
CPT/HCPCS: 36415; 73600; 80048; 85027; 85610; 85730; 93971; 96372; 99284; J1100

== ENCOUNTER 2021-01-04 19:32 | Emergency (ER) | payer MEDICARE ==
[2021-01-04 20:40] LABS: Basophils % (Auto) 0.7 % (0.0-1.8); Eosinophils # (Auto) 0.1 K/mm3 (0.0-0.4); Eosinophils % (Auto) 2.4 % (0.0-4.3); Hematocrit 36.7 % (30.3-42.9); Lymphocytes % (Auto) 36.2 % (13.4-35.0); Mean Corpuscular HGB Conc 33 % (30-34); Mean Corpuscular Volume 97 fl (79-97); Monocytes # (Auto) 0.5 K/mm3 (0.0-0.8); Monocytes % (Auto) 8.9 % (0.0-7.3); Platelet Count 296 K/mm3 (140-440); Red Blood Count 3.79 M/mm3 (3.65-5.03); Red Cell Distribution Width 13.7 % (13.2-15.2)
[2021-01-04 21:02] LABS: Alanine Aminotransferase 11 units/L (7-56); Albumin 4.2 g/dL (3.9-5); Blood Urea Nitrogen 9 mg/dL (7-17); Calcium 9.6 mg/dL (8.4-10.2); Hemolysis Index 4
[2021-01-04 21:06] LABS: BUN/Creatinine Ratio 18
--- NOTE | 2021-01-04 21:09 | XRay Report ---
LEFT KNEE 3 VIEW(S) INDICATION / CLINICAL INFORMATION: fall 2 weeks ago, knee pain COMPARISON: None available. FINDINGS: BONES / JOINT(S): No acute fracture or subluxation. There is severe tricompartment degenerative joint disease. SOFT TISSUES: No significant abnormality. ADDITIONAL FINDINGS: None. Signer Name: Kwesi Omer DO Signed: 01/04/2021 9:05 PM Workstation Name: [id number]
--- NOTE | 2021-01-04 21:45 | Cat Scan Report ---
CT HEAD WITHOUT CONTRAST INDICATION / CLINICAL INFORMATION: hallucinations. TECHNIQUE: All CT scans at this location are performed using CT dose reduction for ALARA by means of automated e xposure control. COMPARISON: MRI brain 05/17/2016 FINDINGS: HEMORRHAGE: No evidence of intracranial hemorrhage or extra-axial fluid collection. EXTRA-AXIAL SPACES: Cortical sulci and sylvian fissures are mildly enlarged reflecting a degree of pa renchymal volume loss which is within normal limits for the patient's age of 75 years. Basilar cister ns have an unremarkable appearance. VENTRICULAR SYSTEM: The third and lateral ventricles are normal in size for age 75 years. CEREBRAL PARENCHYMA: A region of encephalomalacia is observed in the left frontal lobe. This could be secondary to left MCA infarction. There is an adjacent craniotomy closed utilizing radiopaque cranio plasty material. The encephalomalacia along the lateral aspect of the left frontal lobe could be post operative. Subtle periventricular and deep white matter lucencies noted compatible with microvascular ischemic change. Normal brain parenchymal attenuation is seen throughout the remainder of the brain. MIDLINE SHIFT OR HERNIATION: There is no mass effect. CEREBELLUM / BRAINSTEM: Brainstem has an unremarkable appearance. Age related cerebellar atrophy is n oted. MIDLINE STRUCTURES:Pituitary gland has an unremarkable appearance. No abnormalities are seen in the p ineal region. INTRACRANIAL VESSELS:Calcified atherosclerotic plaque is present along the course of the cavernous se gments of both internal carotid arteries. Similar findings are seen at the distal vertebral arteries. ORBITS: Status post bilateral cataract surgery. No additional abnormality. SOFT TISSUES of HEAD: No significant abnormality. CALVARIUM: Status post left parietal and right frontoparietal craniotomy is with cranioplasty. No add itional abnormality. PARANASAL SINUSES / MASTOID AIR CELLS: Paranasal sinuses are free from inflammatory mucosal disease. Mastoid air cells are normally pneumatized. IMPRESSION: 1. No acute intracranial abnormality. 2. Encephalomalacia left frontal lobe as described above. 3. Findings are similar to those demonstrated on MRI brain dated 05/17/2016. Signer Name: Omid Frero MD Signed: 01/04/2021 9:41 PM Workstation Name: [id number]
[2021-01-04 21:59] LABS: ABG Base Excess 5.4 mmol/L (-2.0-3.0); ABG HCO3 31.8 mmol/L (20.0-26.0); ABG Methemoglobin 0.5 % (0.0-1.5); ABG Oxygen Saturation 98.1 % (95.0-99.0); ABG PCO2 55.7 mm Hg; ABG PH 7.375 pH Units (7.350-7.450); ABG PO2 117.9 mm Hg (80.0-90.0)
--- NOTE | 2021-01-04 22:08 | Emergency Department Report ---
<MONICA REN - Last Filed: 01/05/21 05:45> ED Psych HPI - General Chief Complaint: Psych Stated Complaint: VISUAL/AUDITORY HALLUCINATIONS Time Seen by Provider: 01/04/21 20:04 - Related Data Home Medications Medication Instructions Recorded Confirmed Last Taken levETIRAcetam 750 mg PO BID 05/25/14 03/24/20 03/24/20 Fluticasone [Flonase] 2 spray NS QDAY 08/12/14 03/24/20 03/23/20 Rosuvastatin (Nf) [Crestor] 20 mg PO QHS 08/12/14 10/09/19 03/23/20 Albuterol Mdi (or & Nicu Only) 2 puff IH QID PRN 09/24/16 03/24/20 03/23/20 [ProAir HFA Inhaler] Budesoni/Formotero 160-4.5(Nf) 2 puff IH BID 09/24/16 03/24/20 03/23/20 [Symbicort 160-4.5 (Nf)] Apixaban [Eliquis] 5 mg PO Q12H 08/21/19 03/24/20 03/21/20 carBAMazepine [TEGretol] 200 mg PO Q12HR 08/21/19 03/24/20 03/24/20 Previous Rx's Medication Instructions Recorded Last Taken Type Escitalopram [Lexapro] 20 mg PO DAILY tablet 05/27/14 03/24/20 Rx Amlodipine Besylate [Norvasc] 10 mg PO DAILY 30 Days tablet 11/19/14 03/24/20 Rx carvediloL [Coreg] 12.5 mg PO BID #60 tablet 11/19/14 03/24/20 Rx Aspirin [Aspirin BABY CHEW TAB] 81 mg PO QDAY #30 tab.chew 05/17/16 03/24/20 Rx Diclofenac 1% [Diclofenac 1% 2 gm TP QID #1 tube 07/28/20 Unknown Rx topical gel] HYDROcodone/APAP 5-325 [[place] 1 each PO Q4HR PRN #10 tablet 07/28/20 Unknown Rx 5/325] Allergies Allergy/AdvReac Type Severity Reaction Status Date / Time morphine Allergy Severe hallucinati Verified 01/04/21 19:37 on ED Past Medical Hx - Medications Home Medications: Home Medications Medication Instructions Recorded Confirmed Last Taken Type levETIRAcetam 750 mg PO BID 05/25/14 03/24/20 03/24/20 History Escitalopram [Lexapro] 20 mg PO DAILY tablet 05/27/14 03/24/20 03/24/20 Rx Fluticasone [Flonase] 2 spray NS QDAY 08/12/14 03/24/20 03/23/20 History Rosuvastatin (Nf) [Crestor] 20 mg PO QHS 08/12/14 10/09/19 03/23/20 History Amlodipine Besylate [Norvasc] 10 mg PO DAILY 30 Days tablet 11/19/14 03/24/20 03/24/20 Rx carvediloL [Coreg] 12.5 mg PO BID #60 tablet 11/19/14 03/24/20 03/24/20 Rx Aspirin [Aspirin BABY CHEW TAB] 81 mg PO QDAY #30 tab.chew 05/17/16 03/24/20 03/24/20 Rx Albuterol Mdi (or & Nicu Only) 2 puff IH QID PRN 09/24/16 03/24/20 03/23/20 History [ProAir HFA Inhaler] Budesoni/Formotero 160-4.5(Nf) 2 puff IH BID 09/24/16 03/24/20 03/23/20 History [Symbicort 160-4.5 (Nf)] Apixaban [Eliquis] 5 mg PO Q12H 08/21/19 03/24/20 03/21/20 History carBAMazepine [TEGretol] 200 mg PO Q12HR 08/21/19 03/24/20 03/24/20 History Diclofenac 1% [Diclofenac 1% 2 gm TP QID #1 tube 07/28/20 Unknown Rx topical gel] HYDROcodone/APAP 5-325 [[place] 1 each PO Q4HR PRN #10 tablet 07/28/20 Unknown Rx 5/325] ED Course - Reevaluation(s) Reevaluation #1: 01/05/21 02:53 Patient became agitated and started pulling staff and start walking threatening that she is going to leave. Patient stating that she is seeing angels. Patient is obviously in acute psychosis. Geodon 10 milligrams has been ordered. Patient is 1013. Reevaluation #2: 01/05/21 05:45 Patient now is awake after she slept only 2 hours after Geodon. Patient now is calm and in no acute distress. Vital signs stable. ED Medical Decision Making - Lab Data Result diagrams: 01/04/21 20:32 01/04/21 20:32 ED Disposition Clinical Impression: Visual hallucination, History of COPD, Oxygen dependent, Medical clearance for psychiatric admission, Contusion of left knee [facility] Condition: Stable Additional Instructions: OUTPATIENT MENTAL HEALTH RESOURCES [facility], [facility] Flakito Salmon MD: [address] [place] [address] [facility] [address] [place] [address] [place] [address] [place] [facility]: [employer] [address] [place] [address] [place] [address] [phone] [facility]: [facility] Healthcare: [address] [facility] [address] [facility] [place] [address] [facility] [address] [facility]: Roman Patel MD: [address] [facility] [address] [facility] [id number] [facility]: [address] [place], [place] [id number] [phone] [place] CRISIS AND ACCESS LINE: <KIMBERLEY BOATENG - Last Filed: 01/07/21 07:15> ED Psych HPI - General Source: patient, EMS Mode of arrival: Stretcher Limitations: No Limitations - History of Present Illness Initial Comments: 75-year female with a past medical history of COPD on 2 L nasal cannula oxygen, CHF, hypertension, depression, seizures, pulmonary embolism, benign brain tumor surgical resection presents to the hospital complaining of hallucinations for the past 2 days. For last 2 days patient states she is seeing angels. She denies that these injuries are speaking to her. She also occasionally sees life family members in her presence that are actually in her present. Patient compla ins of headache, chronic shortness of breath, and left knee pain for the last 2 weeks since fall on cement. She is otherwise alert and oriented x3. Patient does complain of dysuria x1 week. ED Review of Systems ROS: Stated complaint: VISUAL/AUDITORY HALLUCINATIONS Other details as noted in HPI Comment: All other systems reviewed and negative ED Past Medical Hx - Past Medical History Hx Hypertension: Yes Hx Heart Attack/AMI: No Hx Congestive Heart Failure: Yes Hx Diabetes: No Hx Deep Vein Thrombosis: No Hx Pulmonary Embolism: Yes (2011) Hx Sickle Cell Disease: No Hx Arthritis: Yes Hx Seizures: Yes Hx Psychiatric Treatment: (Depression) Hx Asthma: No Hx COPD: Yes ((2LNC)) Hx Tuberculosis: No Hx Dementia: No Hx HIV: No Additional medical history: Beneign Brain Tumor - Surgical History Hx Coronary Stent: Yes Hx Open Heart Surgery: No Hx Pacemaker: No Hx Internal Defibrillator: No Hx Cholecystectomy: Yes Hx Appendectomy: No Hx Breast Surgery: No Additional Surgical History: Brain Surgery x 2, Hysterectomy, [place], Hernia, Bowl Obstruction x 3, Back surgery. right hip surgery - Social History Smoking Status: Former Smoker ED Physical Exam - General Limitations: No Limitations - Other Other exam information: General: No acute distress Head: Atraumatic Eyes: normal appearance ENT: Moist mucous membranes Neck: Normal appearance, no midline tenderness Chest: Clear to auscultation bilaterally CV: Regular rate and rhythm Abdomen: Soft, normal bowel sounds, nontender, nondistended, no rebound or guarding Back: Normal inspection Extremity: Normal inspection, anterior left knee tenderness to palpation. Pain with flexion Neuro: Alert O x 3, no facial asymmetry, speech clear, no gross motor sensory deficit Psych: Appropriate behavior Skin: No rash ED Course Vital Signs 01/04/21 01/05/21 01/06/21 19:37 03:16 08:11 Temperature 99.0 F 97.6 F Pulse Rate 68 79 80 Respiratory 18 18 18 Rate Blood Pressure 188/79 175/91 122/76 [Left] O2 Sat by Pulse 98 94 99 Oximetry 01/06/21 01/06/21 08:36 09:43 Temperature 98.2 F 98.2 F Pulse Rate 64 64 Respiratory 18 18 Rate Blood Pressure 160/87 160/82 [Left] O2 Sat by Pulse 99 98 Oximetry ED Medical Decision Making - Lab Data Result diagrams: 01/04/21 20:32 01/04/21 20:32 Lab Results 01/04/21 01/04/21 01/04/21 Range/Units 20:32 20:32 20:32 WBC 5.5 (4.5-11.0) K/mm3 RBC 3.79 (3.65-5.03) M/mm3 Hgb 12.0 (10.1-14.3) gm/dl Hct 36.7 (30.3-42.9) % MCV 97 (79-97) fl MCH 32 (28-32) pg MCHC 33 (30-34) % RDW 13.7 (13.2-15.2) % Plt Count 296 (140-440) K/mm3 Lymph % (Auto) 36.2 H (13.4-35.0) % Hendricks % (Auto) 8.9 H (0.0-7.3) % Eos % (Auto) 2.4 (0.0-4.3) % Baso % (Auto) 0.7 (0.0-1.8) % Lymph # (Auto) 2.0 (1.2-5.4) K/mm3 Hendricks # (Auto) 0.5 (0.0-0.8) K/mm3 Eos # (Auto) 0.1 (0.0-0.4) K/mm3 Baso # (Auto) 0.0 (0.0-0.1) K/mm3 Seg Neutrophils % 51.8 (40.0-70.0) % Seg Neutrophils # 2.9 (1.8-7.7) K/mm3 ABG pH (7.350-7.450) pH Units ABG pCO2 mm Hg ABG pO2 (80.0-90.0) mm Hg ABG HCO3 (20.0-26.0) mmol/L ABG O2 Saturation (95.0-99.0) % ABG O2 Content (0.0-44) ABG Base Excess (-2.0-3.0) mmol/L ABG Hemoglobin (12.0-16.0) gm/dl ABG Carboxyhemoglobin (0.0-5.0) % ABG Methemoglobin (0.0-1.5) % Oxyhemoglobin (95.0-99.0) % FiO2 % Sodium 144 (137-145) mmol/L Potassium 3.9 (3.6-5.0) mmol/L Chloride 102.2 (98-107) mmol/L Carbon Dioxide 32 H (22-30) mmol/L Anion Gap 14 mmol/L BUN 9 (7-17) mg/dL Creatinine 0.5 L (0.6-1.2) mg/dL Estimated GFR > 60 ml/min BUN/Creatinine Ratio 18 % Glucose 143 H (65-100) mg/dL Calcium 9.6 (8.4-10.2) mg/dL Total Bilirubin 0.20 (0.1-1.2) mg/dL AST 16 (5-40) units/L ALT 11 (7-56) units/L Alkaline Phosphatase 89 (35-129) units/L Total Protein 7.0 (6.3-8.2) g/dL Albumin 4.2 (3.9-5) g/dL Albumin/Globulin Ratio 1.5 % Urine Color (Yellow) Urine Turbidity (Clear) Urine pH (5.0-7.0) Ur Specific [place] (1.003-1.030) Urine Protein (Negative) mg/dL Urine Glucose (UA) (Negative) mg/dL Urine Ketones (Negative) mg/dL Urine Blood (Negative) Urine Nitrite (Negative) Urine Bilirubin (Negative) Urine Urobilinogen (<2.0) mg/dL Ur Leukocyte Esterase (Negative) Urine WBC (Auto) (0.0-6.0) /HPF Urine RBC (Auto) (0.0-6.0) /HPF U Epithel Cells (Auto) (0-13.0) /HPF Urine Mucus /HPF Urine Opiates Screen Urine Methadone Screen Ur Barbiturates Screen Ur Phencyclidine Scrn Ur Amphetamines Screen U Benzodiazepines Scrn Urine Cocaine Screen U Marijuana (THC) Screen Drugs of Abuse Note Plasma/Serum Alcohol < 0.01 (0-0.07) % 01/04/21 01/04/21 01/04/21 Range/Units 21:51 22:56 22:56 WBC (4.5-11.0) K/mm3 RBC (3.65-5.03) M/mm3 Hgb (10.1-14.3) gm/dl Hct (30.3-42.9) % MCV (79-97) fl MCH (28-32) pg MCHC (30-34) % RDW (13.2-15.2) % Plt Count (140-440) K/mm3 Lymph % (Auto) (13.4-35.0) % Hendricks % (Auto) (0.0-7.3) % Eos % (Auto) (0.0-4.3) % Baso % (Auto) (0.0-1.8) % Lymph # (Auto) (1.2-5.4) K/mm3 Hendricks # (Auto) (0.0-0.8) K/mm3 Eos # (Auto) (0.0-0.4) K/mm3 Baso # (Auto) (0.0-0.1) K/mm3 Seg Neutrophils % (40.0-70.0) % Seg Neutrophils # (1.8-7.7) K/mm3 ABG pH 7.375 (7.350-7.450) pH Units ABG pCO2 55.7 mm Hg ABG pO2 117.9 H (80.0-90.0) mm Hg ABG HCO3 31.8 H (20.0-26.0) mmol/L ABG O2 Saturation 98.1 (95.0-99.0) % ABG O2 Content 16.0 (0.0-44) ABG Base Excess 5.4 H (-2.0-3.0) mmol/L ABG Hemoglobin 11.7 L (12.0-16.0) gm/dl ABG Carboxyhemoglobin 1.3 (0.0-5.0) % ABG Methemoglobin 0.5 (0.0-1.5) % Oxyhemoglobin 96.3 (95.0-99.0) % FiO2 28 % Sodium (137-145) mmol/L Potassium (3.6-5.0) mmol/L Chloride (98-107) mmol/L Carbon Dioxide (22-30) mmol/L Anion Gap mmol/L BUN (7-17) mg/dL Creatinine (0.6-1.2) mg/dL Estimated GFR ml/min BUN/Creatinine Ratio % Glucose (65-100) mg/dL Calcium (8.4-10.2) mg/dL Total Bilirubin (0.1-1.2) mg/dL AST (5-40) units/L ALT (7-56) units/L Alkaline Phosphatase (35-129) units/L Total Protein (6.3-8.2) g/dL Albumin (3.9-5) g/dL Albumin/Globulin Ratio % Urine Color Yellow (Yellow) Urine Turbidity Clear (Clear) Urine pH 7.0 (5.0-7.0) Ur Specific [place] 1.017 (1.003-1.030) Urine Protein 30 mg/dl (Negative) mg/dL Urine Glucose (UA) Neg (Negative) mg/dL Urine Ketones Neg (Negative) mg/dL Urine Blood Mod (Negative) Urine Nitrite Neg (Negative) Urine Bilirubin Neg (Negative) Urine Urobilinogen < 2.0 (<2.0) mg/dL Ur Leukocyte Esterase Neg (Negative) Urine WBC (Auto) 2.0 (0.0-6.0) /HPF Urine RBC (Auto) 47.0 (0.0-6.0) /HPF U Epithel Cells (Auto) < 1.0 (0-13.0) /HPF Urine Mucus Few /HPF Urine Opiates Screen Presumptive negative Urine Methadone Screen Presumptive negative Ur Barbiturates Screen Presumptive negative Ur Phencyclidine Scrn Presumptive negative Ur Amphetamines Screen Presumptive negative U Benzodiazepines Scrn Presumptive negative Urine Cocaine Screen Presumptive negative U Marijuana (THC) Screen Presumptive negative Drugs of Abuse Note Disclamer Plasma/Serum Alcohol (0-0.07) % - Radiology Data Radiology results: report reviewed CT HEAD WITHOUT CONTRAST INDICATION / CLINICAL INFORMATION: hallucinations. TECHNIQUE: All CT scans at this location are performed using CT dose reduction for ALARA by means of automated exposure control. COMPARISON: MRI brain 05/17/2016 FINDINGS: HEMORRHAGE: No evidence of intracranial hemorrhage or extra-axial fluid collection. EXTRA-AXIAL SPACES: Cortical sulci and sylvian fissures are mildly enlarged reflecting a degree of parenchymal volume loss which is within normal limits for the patient's age of 75 years. Basilar cisterns have an unremarkable appearance. VENTRICULAR SYSTEM: The third and lateral ventricles are normal in size for age 75 years. CEREBRAL PARENCHYMA: A region of encephalomalacia is observed in the left frontal lobe. This could be secondary to left MCA infarction. There is an adjacent craniotomy closed utilizing radiopaque cranioplasty material. The encephalomalacia along the lateral aspect of the left frontal lobe could be postoperative. Subtle periventricular and deep white matter lucencies noted compatible with microvascular ischemic change. Normal brain parenchymal attenuation is seen throughout the remainder of the brain. MIDLINE SHIFT OR HERNIATION: There is no mass effect. CEREBELLUM / BRAINSTEM: Brainstem has an unremarkable appearance. Age related cerebellar atrophy is noted. MIDLINE STRUCTURES:Pituitary gland has an unremarkable appearance. No abnormalities are seen in the pineal region. INTRACRANIAL VESSELS:Calcified atherosclerotic plaque is present along the course of the cavernous segments of both internal carotid arteries. Similar findings are seen at the distal vertebral arteries. ORBITS: Status post bilateral cataract surgery. No additional abnormality. SOFT TISSUES of HEAD: No significant abnormality. CALVARIUM: Status post left parietal and right frontoparietal craniotomy is with cranioplasty. No additional abnormality. PARANASAL SINUSES / MASTOID AIR CELLS: Paranasal sinuses are free from inflammatory mucosal disease. Mastoid air cells are normally pneumatized. IMPRESSION: 1. No acute intracranial abnormality. 2. Encephalomalacia left frontal lobe as described above. 3. Findings are similar to those demonstrated on MRI brain dated 05/17/2016 LEFT KNEE 3 VIEW(S) INDICATION / CLINICAL INFORMATION: fall 2 weeks ago, knee pain COMPARISON: None available. FINDINGS: BONES / JOINT(S): No acute fracture or subluxation. There is severe tricompartment degenerative joint disease. SOFT TISSUES: No significant abnormality. ADDITIONAL FINDINGS: None. - Medical Decision Making 75-year-old female presents to the hospital with visual hallucinations. She states she is seeing angels and family members that are not actually in the room. Patient does not endorse suicidal homicidal ideation. ED work-up was, ABG, UA, and CT head, are unremarkable. Left knee x-ray did not reveal fracture medically cleared. Mental health evaluation ordered Critical Care Time: No Critical care attestation.: If time is entered above; I have spent that time in minutes in the direct care of this critically ill patient, excluding procedure time. ED Disposition Is pt being admited?: No
[2021-01-04 23:05] LABS: Bilirubin,Urine NEG (Negative); Blood,Urine MOD (Negative); Color,Urine Yellow (Yellow); Mucus,Urine FEW /HPF; Urobilinogen,Urine < 2.0 mg/dL (<2.0)
[2021-01-04 23:16] LABS: Amphetamine Screen,Urine PRESUMPTIVE NEGATIVE; Benzodiazepines Screen,Urine PRESUMPTIVE NEGATIVE; Cannabinoid Screen,Urine PRESUMPTIVE NEGATIVE; Cocaine Screen,Urine PRESUMPTIVE NEGATIVE; Methadone Screen,Urine PRESUMPTIVE NEGATIVE; Opiate Screen,Urine PRESUMPTIVE NEGATIVE
[2021-01-05] MEDS ORDERED: LORazepam 2 MG/ML VIAL IM ONE (01:57)
[2021-01-05] MEDS ORDERED: ZIPRASIDONE MESYLATE 20 MG VIAL IM ONE ×2 (02:50)
[2021-01-05] MEDS ORDERED: HALOPERIDOL 2 MG TAB PO ONE (06:56)
--- NOTE | 2021-01-05 06:58 | Emergency Department Report ---
Blank Doc - Documentation Documentation: 0600-I assumed care. Psychiatric evaluation is pending. Briefly, this is a [age]-year-old female who has had hallucinations for 2 days. She had been seen medically and evaluated. The plan was to have psychiatric evaluation this morning. Patient is complaining of restlessness. She is requesting something to help her rest. On my exam, she is in no distress. She is not hypoxic. She is not tachycardic. She is conversant with me. Labs were reviewed. Tegretol level was added on as the patient states that she is on Tegretol. Haloperidol orally has been ordered. Will await psychiatric evaluation. 1120-Psychiatric services has seen the patient. They are planning on psychiatric admission. Coronavirus test was sent.
--- NOTE | 2021-01-05 10:58 | Consultation ---
History of Present Illness - Reason for Consult Consult date: 01/05/21 Reason for consult: hallucinations - History of Present Psychiatric Illness The patient was seen today. She verbalizes feeling depressed about things that has happened in her past. The patient states she is seeing angels. It is untrue of how much information the patient is saying is true. The patient says she lives a lone. She says she takes psych meds but could not remember them. She says the only history she has is depression PAST PSYCHIATRIC HISTORY: Diagnoses: depression Suicide attempts or Self-harm behavior: Denies Prior psychiatric hospitalizations: Denies Substance Abuse history: Denies Previous psychiatric medications tried: could not recall Outpatient treatment: not at present PAST MEDICAL HISTORY: Family Psychiatric History: None reported or documented SOCIAL HISTORY Marital Status: Living Arrangements: alone Employment Status: Retired Access to guns/weapons: Denies Education: History of Abuse: none reported Legal History: Denies REVIEW OF SYSTEMS Constitutional: Negative for weight loss ENT: Negative for stridor Respiratory: Negative for cough or hemoptysis All other systems reviewed and are negative MENTAL STATUS EXAMINATION General Appearance: Dressed appropriately Behavior: good eye contact, distracted Mood: okay Affect and affective range: Congruent with stated mood Thought Process: circumstantial Speech: normal tone and pace Suicidal Ideation: Denies Homicidal Ideation: Denies Hallucinations: Auditory Delusions: None elicited Insight and Judgment: Limited Memory/Cognition: Limited Impulse control: Limited Attention: distracted Orientation: Alert, oriented x 2 Assessment Major Depressive Disorder PLAN 1013 Start Risperidone 0.5mg po BID Start Trazodone 50mg po qhs Sitter: Defer to primary Medical: Per primary Disposition: Recommend acute inpatient treatment Will follow. Thank you for this consult Case staffed with Dr. Licona Medications and Allergies Allergies Allergy/AdvReac Type Severity Reaction Status Date / Time morphine Allergy Severe hallucinati Verified 01/04/21 19:37 on Home Medications Medication Instructions Recorded Confirmed Last Taken Type levETIRAcetam 750 mg PO BID 05/25/14 03/24/20 03/24/20 History Escitalopram [Lexapro] 20 mg PO DAILY tablet 05/27/14 03/24/20 03/24/20 Rx Fluticasone [Flonase] 2 spray NS QDAY 08/12/14 03/24/20 03/23/20 History Rosuvastatin (Nf) [Crestor] 20 mg PO QHS 08/12/14 10/09/19 03/23/20 History Amlodipine Besylate [Norvasc] 10 mg PO DAILY 30 Days tablet 11/19/14 03/24/20 0 03/24/20 Rx carvediloL [Coreg] 12.5 mg PO BID #60 tablet 11/19/14 03/24/20 03/24/20 Rx Aspirin [Aspirin BABY CHEW TAB] 81 mg PO QDAY #30 tab.chew 05/17/16 03/24/20 03/24/20 Rx Albuterol Mdi (or & Nicu Only) 2 puff IH QID PRN 09/24/16 03/24/20 03/23/20 History [ProAir HFA Inhaler] Budesoni/Formotero 160-4.5(Nf) 2 puff IH BID 09/24/16 03/24/20 03/23/20 History [Symbicort 160-4.5 (Nf)] Apixaban [Eliquis] 5 mg PO Q12H 08/21/19 03/24/20 03/21/20 History carBAMazepine [TEGretol] 200 mg PO Q12HR 08/21/19 03/24/20 03/24/20 History Diclofenac 1% [Diclofenac 1% 2 gm TP QID #1 tube 07/28/20 Unknown Rx topical gel] HYDROcodone/APAP 5-325 [[place] 1 each PO Q4HR PRN #10 tablet 07/28/20 Unknown Rx 5/325] Mental Status Exam - Vital signs Last Vital Signs Temp 99.0 F 01/04/21 19:37 Pulse 79 01/05/21 03:16 Resp 18 01/05/21 03:16 BP 175/91 01/05/21 03:16 Pulse Ox 94 01/05/21 03:16 Results Result Diagrams: 01/04/21 20:32 01/04/21 20:32 Abnormal lab results 01/04/21 01/04/21 01/04/21 Range/Units 20:32 20:32 21:51 Lymph % (Auto) 36.2 H (13.4-35.0) % [place] % (Auto) 8.9 H (0.0-7.3) % ABG pO2 117.9 H (80.0-90.0) mm Hg ABG HCO3 31.8 H (20.0-26.0) mmol/L ABG Base Excess 5.4 H (-2.0-3.0) mmol/L ABG Hemoglobin 11.7 L (12.0-16.0) gm/dl Carbon Dioxide 32 H (22-30) mmol/L Creatinine 0.5 L (0.6-1.2) mg/dL Glucose 143 H (65-100) mg/dL All other labs normal.
[2021-01-05] MEDS: SERTRALINE 25 MG TAB PO SCH (12:28)
[2021-01-05] MEDS: risperiDONE 0.25 MG TAB PO SCH (12:28)
[2021-01-05] MEDS ORDERED: ZOLPIDEM 5 MG TAB PO ONE (22:13)
[2021-01-06] MEDS: risperiDONE 0.25 MG TAB PO SCH (09:41)
[2021-01-06] MEDS: SERTRALINE 25 MG TAB PO SCH (09:41)
[2021-01-06 09:45] VITALS: BP 160/82
== END 2021-01-06 09:43 ==
LOC: ED 19:32 → EEVIPCON 19:32 → ED 01-06 09:43
DX: R44.1 Visual hallucinations (principal); S80.02XA Contusion of left knee, initial encounter; J44.9 Chronic obstructive pulmonary disease, unspecified; Z99.81 Dependence on supplemental oxygen; Z13.30 Encounter for screening examination for mental health and behavioral disorders, unspecified; Z20.822 Contact with and (suspected) exposure to COVID-19; I11.0 Hypertensive heart disease with heart failure; I50.9 Heart failure, unspecified; M19.90 Unspecified osteoarthritis, unspecified site; Z90.49 Acquired absence of other specified parts of digestive tract; Z90.710 Acquired absence of both cervix and uterus; Z98.890 Other specified postprocedural states; Z87.891 Personal history of nicotine dependence; Z88.5 Allergy status to narcotic agent; X58.XXXA Exposure to other specified factors, initial encounter; Y93.89 Activity, other specified; Y92.89 Other specified places as the place of occurrence of the external cause; Y99.8 Other external cause status
CPT/HCPCS: 36415; 70450; 73562; 80053; 80156; 80307; 81001; 82803; 85025; 96372; 99285; J2060; J3486; U0003; 80320; G0480

== ENCOUNTER 2021-01-17 20:27 | Emergency (ER) | payer MEDICARE ==
[2021-01-17 21:53] LABS: Basophils % (Auto) 0.8 % (0.0-1.8); Eosinophils # (Auto) 0.2 K/mm3 (0.0-0.4); Eosinophils % (Auto) 3.3 % (0.0-4.3); Hematocrit 33.4 % (30.3-42.9); Hemoglobin 10.8 gm/dl (10.1-14.3); Lymphocytes % (Auto) 37.5 % (13.4-35.0); Mean Corpuscular HGB Conc 32 % (30-34); Mean Corpuscular Volume 98 fl (79-97); Monocytes # (Auto) 0.4 K/mm3 (0.0-0.8); Monocytes % (Auto) 7.7 % (0.0-7.3); Platelet Count 269 K/mm3 (140-440); Red Blood Count 3.41 M/mm3 (3.65-5.03); Red Cell Distribution Width 13.6 % (13.2-15.2)
--- NOTE | 2021-01-17 21:53 | Emergency Department Report ---
ED Psych HPI - General Chief Complaint: Psych Time Seen by Provider: 01/17/21 21:10 Source: patient, EMS Mode of arrival: Stretcher - History of Present Illness Initial Comments: 75 yo F with PMH of COPD here with complaint of hallucinations. Patient has history of previous. Patient was recently kept on a psychiatric hold for having auditory and visual hallucinations. Patient states that she is currently on citalopram but is unsure if she is still taking her medications. She states on tonight she smelled gas and she called for the paramedics and fire when they came the patient was nervous and was did not initially answer further she notes that the paramedics nor fire smelled gas nor did anyone else at home. Patient also asked me if there is someone named Elías who is trying to get her into the hospital. Patient reports that she has some shortness of breath but is has a history of COPD is on home oxygen 2L she also notes some dizziness but denies any recent fevers chills or coughing. MD Complaint: other (hallucinations) - Related Data Home Medications Medication Instructions Recorded Confirmed Last Taken levETIRAcetam 750 mg PO BID 05/25/14 03/24/20 03/24/20 Fluticasone [Flonase] 2 spray NS QDAY 08/12/14 03/24/20 03/23/20 Rosuvastatin (Nf) [Crestor] 20 mg PO QHS 08/12/14 10/09/19 03/23/20 Albuterol Mdi (or & Nicu Only) 2 puff IH QID PRN 09/24/16 03/24/20 03/23/20 [ProAir HFA Inhaler] Budesoni/Formotero 160-4.5(Nf) 2 puff IH BID 09/24/16 03/24/20 03/23/20 [Symbicort 160-4.5 (Nf)] Apixaban [Eliquis] 5 mg PO Q12H 08/21/19 03/24/20 03/21/20 carBAMazepine [TEGretol] 200 mg PO Q12HR 08/21/19 03/24/20 03/24/20 Previous Rx's Medication Instructions Recorded Last Taken Type Escitalopram [Lexapro] 20 mg PO DAILY tablet 05/27/14 03/24/20 Rx Amlodipine Besylate [Norvasc] 10 mg PO DAILY 30 Days tablet 11/19/14 03/24/20 Rx carvediloL [Coreg] 12.5 mg PO BID #60 tablet 11/19/14 03/24/20 Rx Aspirin [Aspirin BABY CHEW TAB] 81 mg PO QDAY #30 tab.chew 05/17/16 03/24/20 Rx Diclofenac 1% [Diclofenac 1% 2 gm TP QID #1 tube 07/28/20 Unknown Rx topical gel] HYDROcodone/APAP 5-325 [[place] 1 each PO Q4HR PRN #10 tablet 07/28/20 Unknown Rx 5/325] Allergies Allergy/AdvReac Type Severity Reaction Status Date / Time morphine Allergy Severe hallucinati Verified 01/04/21 19:37 on ED Review of Systems ROS: Stated complaint: Other details as noted in HPI Constitutional: denies: chills, fever Eyes: denies: eye pain ENT: denies: throat pain Respiratory: shortness of breath. denies: cough Cardiovascular: denies: chest pain Endocrine: no symptoms reported Gastrointestinal: denies: abdominal pain, nausea, vomiting Genitourinary: denies: urgency Musculoskeletal: denies: back pain Skin: denies: rash Neurological: other (dizziness). denies: headache, weakness Psychiatric: other (olfactory hallucinations, paranoia) Hematological/Lymphatic: denies: easy bleeding ED Past Medical Hx - Past Medical History Hx Hypertension: Yes Hx Heart Attack/AMI: No Hx Congestive Heart Failure: Yes Hx Diabetes: No Hx Deep Vein Thrombosis: No Hx Pulmonary Embolism: Yes (2011) Hx Sickle Cell Disease: No Hx Arthritis: Yes Hx Seizures: Yes Hx Psychiatric Treatment: (Depression) Hx Asthma: No Hx COPD: Yes ((2LNC)) Hx Tuberculosis: No Hx Dementia: No Hx HIV: No Additional medical history: Beneign Brain Tumor - Surgical History Hx Coronary Stent: Yes Hx Open Heart Surgery: No Hx Pacemaker: No Hx Internal Defibrillator: No Hx Cholecystectomy: Yes Hx Appendectomy: No Hx Breast Surgery: No Additional Surgical History: Brain Surgery x 2, Hysterectomy, [place], Hernia, Bowl Obstruction x 3, Back surgery. right hip surgery - Social History Smoking Status: Never Smoker Substance Use Type: None - Medications Home Medications: Home Medications Medication Instructions Recorded Confirmed Last Taken Type levETIRAcetam 750 mg PO BID 05/25/14 03/24/20 03/24/20 History Escitalopram [Lexapro] 20 mg PO DAILY tablet 05/27/14 03/24/20 03/24/20 Rx Fluticasone [Flonase] 2 spray NS QDAY 08/12/14 03/24/20 03/23/20 History Rosuvastatin (Nf) [Crestor] 20 mg PO QHS 08/12/14 10/09/19 03/23/20 History Amlodipine Besylate [Norvasc] 10 mg PO DAILY 30 Days tablet 11/19/14 03/24/20 03/24/20 Rx carvediloL [Coreg] 12.5 mg PO BID #60 tablet 11/19/14 03/24/20 03/24/20 Rx Aspirin [Aspirin BABY CHEW TAB] 81 mg PO QDAY #30 tab.chew 05/17/16 03/24/20 03/24/20 Rx Albuterol Mdi (or & Nicu Only) 2 puff IH QID PRN 09/24/16 03/24/20 03/23/20 History [ProAir HFA Inhaler] Budesoni/Formotero 160-4.5(Nf) 2 puff IH BID 09/24/16 03/24/20 03/23/20 History [Symbicort 160-4.5 (Nf)] Apixaban [Eliquis] 5 mg PO Q12H 08/21/19 03/24/20 03/21/20 History carBAMazepine [TEGretol] 200 mg PO Q12HR 08/21/19 03/24/20 03/24/20 History Diclofenac 1% [Diclofenac 1% 2 gm TP QID #1 tube 07/28/20 Unknown Rx topical gel] HYDROcodone/APAP 5-325 [[place] 1 each PO Q4HR PRN #10 tablet 07/28/20 Unknown Rx 5/325] ED Physical Exam - General Limitations: No Limitations General appearance: alert, in no apparent distress - Head Head exam: Present: atraumatic, normocephalic - Eye Eye exam: Present: normal appearance Pupils: Present: normal accommodation - ENT ENT exam: Present: mucous membranes moist - Neck Neck exam: Present: normal inspection - Respiratory Respiratory exam: Present: normal lung sounds bilaterally, other (on 2L NC; her home O2). Absent: respiratory distress - Cardiovascular Cardiovascular Exam: Present: regular rate, normal rhythm. Absent: systolic murmur, diastolic murmur, rubs, gallop - GI/Abdominal GI/Abdominal exam: Present: soft. Absent: distended, tenderness - Rectal Rectal exam: Present: deferred - Extremities Exam Extremities exam: Present: normal inspection, full ROM. Absent: tenderness - Back Exam Back exam: Present: normal inspection - Neurological Exam Neurological exam: Present: alert, oriented X3, CN II-XII intact. Absent: motor sensory deficit - Expanded Psychiatric Exam Expanded Focused psych exam: Present: delusional, paranoid, other (olfactory hallucinations) - Skin Skin exam: Present: warm, dry, intact ED Course Vital Signs 01/17/21 01/17/21 01/18/21 20:42 23:51 06:18 Temperature 99.0 F 98.5 F 98.5 F Pulse Rate 65 58 L 62 Respiratory 16 17 18 Rate Blood Pressure 156/64 116/56 [Left] O2 Sat by Pulse 65 L 98 95 Oximetry 01/18/21 11:49 Temperature Pulse Rate 68 Respiratory 16 Rate Blood Pressure 120/66 [Left] O2 Sat by Pulse 97 Oximetry - Reevaluation(s) Reevaluation #1: 01/17/21 22:00 Called patient's daughter and left a message. Reevaluation #2: 01/17/21 23:44 Patient is medically cleared at this time and will be awaiting psychiatric evaluation. ED Medical Decision Making - Lab Data Result diagrams: 01/17/21 21:28 01/17/21 21:28 - EKG Data -: EKG Interpreted by De EKG shows normal: sinus rhythm Rate: normal - EKG Data Interpretation: LVH 01/17/21 22:22 Completed at 2218, rate 60 - Medical Decision Making This is a 75-year-old female history of COPD but also history for recent admission for auditory visual hallucinations here with complaint of now olfactory hallucinations. She also appears to have some delusions and paranoia. Plan for full evaluation given patient also reports some dizziness patient to undergo EKG, chest x-ray, CT head basic labs urinalysis, UDS. At this time patient is cooperative so we will hold off on signing a 1013 and will attempt to get additional history from patient's family. Critical care attestation.: If time is entered above; I have spent that time in minutes in the direct care of this critically ill patient, excluding procedure time. ED Disposition Clinical Impression: Hallucinations Disposition: 01 HOME / SELF CARE / HOMELESS Is pt being admited?: No Does the pt Need Aspirin: No Condition: Stable Additional Instructions: Professional and Agency Contacts To help [facility](17/09) [place] Crisis Line: Suicide Prevention Line: Crisis Text Line: Text START to [phone] Emergency: 911 Outpatient COMMUNITY Behavioral Health Resources: [place]: [facility] [address] [place], [place] [address] [place]: [facility] [address] [place] [address] [place]: [facility] - [address] [place] [address] Saturday thru Saturday - 8am - 5pm [facility] Address: [address] [place] [address] [place]: [facility] Address: [address] [place] [address] Saturday thru Saturday- 7am-2pm [facility] Address: [address] [place] [address] Saturday thru Saturday: 8:30AM-5PM Referrals: PRIMARY CARE, [Primary Care Provider] - 3-5 Days
[2021-01-17 22:01] LABS: Blood Urea Nitrogen 8 mg/dL (7-17); Hemolysis Index 118
[2021-01-17 22:05] LABS: Bilirubin,Urine NEG (Negative); Blood,Urine MOD (Negative); Color,Urine Yellow (Yellow); Mucus,Urine FEW /HPF; Protein,Urine <15 mg/dL mg/dL (Negative); Urobilinogen,Urine < 2.0 mg/dL (<2.0)
[2021-01-17 22:07] LABS: Amphetamine Screen,Urine Negative; Benzodiazepines Screen,Urine Negative; Cannabinoid Screen,Urine Negative; Cocaine Screen,Urine Negative; Methadone Screen,Urine Negative; Opiate Screen,Urine Negative
--- NOTE | 2021-01-17 22:09 | Cat Scan Report ---
CT HEAD WITHOUT CONTRAST INDICATION / CLINICAL INFORMATION: Dizziness. TECHNIQUE: All CT scans at this location are performed using CT dose reduction for ALARA by means of automated exposure control. COMPARISON: CT from 01/04/2021 FINDINGS: BRAIN PARENCHYMA: No acute intracranial hemorrhage. No evidence of recent infarct. No mass effect or midline shift. White matter chronic small vessel ischemic changes. Encephalomalacia again seen within the left frontal lobe. VENTRICULAR SYSTEM/EXTRA-AXIAL SPACES: Age-related cerebral atrophy. No extra-axial fluid collection. ORBITS: Normal as visualized. SKELETAL SYSTEM/SOFT TISSUES: Status post left parietal and right frontoparietal craniotomy with cran ioplasty. No acute process. PARANASAL SINUSES/MASTOID AIR CELLS: No significant abnormality. ADDITIONAL FINDINGS: None. IMPRESSION: 1. No acute intracranial abnormality. Signer Name: Francisco Genao MD Signed: 01/17/2021 10:04 PM Workstation Name: [id number]
[2021-01-17 22:14] LABS: BUN/Creatinine Ratio 20
--- NOTE | 2021-01-17 22:57 | XRay Report ---
XR chest 1V ap INDICATION / CLINICAL INFORMATION: sob; hx of copd. COMPARISON: None available. FINDINGS: SUPPORT DEVICES: None. HEART /PULMONARY VASCULATURE: No significant abnormality. LUNGS / PLEURA: No significant pulmonary or pleural abnormality. No pneumothorax. ADDITIONAL FINDINGS: No significant additional findings. IMPRESSION: 1. No acute findings. Signer Name: Francisco Genao MD Signed: 01/17/2021 10:53 PM Workstation Name: [id number]
[2021-01-18] MEDS ORDERED: ACETAMINOPHEN 500 MG TAB PO ONE (05:57)
--- NOTE | 2021-01-18 11:23 | Consultation ---
History of Present Illness - Reason for Consult Consult date: 01/18/21 Reason for consult: hallucinations - History of Present Psychiatric Illness The patient was seen today, she is a 75y/o female patient who presented with complaints of hallucinations. The patient says she thought she smelled gas last night at her home but she says when the ambulance got there they did not smell it. The patient is calm, cooperative and pleasant. She is conversational. She is a/o x 3. The patient says "I don't have any hallucinations here, but had them when I was at home. I don't smell gas now." The patient says the hallucinations first started back in 2006. She says she noticed them "after she was given morphine for the first time." The patient denies SI/HI or any fear of end angerment. She says "I really just want to go back home and sleep in my own bed." She says "I have three children and 5 siblings who check on me. My sister can come and get me." The patient says she has a history of depression, and was taking citalopram. She denies any illicit drug use, alcohol or nicotine. PAST PSYCHIATRIC HISTORY: Diagnoses: depression Suicide attempts or Self-harm behavior: Denies Prior psychiatric hospitalizations: Denies Substance Abuse history: Denies Previous psychiatric medications tried: could not recall Outpatient treatment: not at present PAST MEDICAL HISTORY: Family Psychiatric History: None reported or documented SOCIAL HISTORY Marital Status: Living Arrangements: alone Employment Status: Retired Access to guns/weapons: Denies Education: History of Abuse: none reported Legal History: Denies REVIEW OF SYSTEMS Constitutional: Negative for weight loss ENT: Negative for stridor Respiratory: Negative for cough or hemoptysis All other systems reviewed and are negative MENTAL STATUS EXAMINATION General Appearance: Dressed appropriately Behavior: good eye contact, calm, cooperative and conversational Mood: fine Affect and affective range: Congruent with stated mood Thought Process: goal directed Speech: normal tone and pace Suicidal Ideation: Denies Homicidal Ideation: Denies Hallucinations: Denies Delusions: None elicited Insight and Judgment: Limited Memory/Cognition: Limited Impulse control: Limited Attention: attentive Orientation: Alert, oriented x 3 Assessment Hallucinations PLAN Continue previously prescribed medications Sitter: Defer to primary Medical: Per primary Disposition: Do not recommend acute inpatient psychiatric treatment Will sign off. Thank you for this consult Case staffed with Dr. Licona Medications and Allergies Allergies Allergy/AdvReac Type Severity Reaction Status Date / Time morphine Allergy Severe hallucinati Verified 01/04/21 19:37 on Home Medications Medication Instructions Recorded Confirmed Last Taken Type levETIRAcetam 750 mg PO BID 05/25/14 03/24/20 03/24/20 History Escitalopram [Lexapro] 20 mg PO DAILY tablet 05/27/14 03/24/20 03/24/20 Rx Fluticasone [Flonase] 2 spray NS QDAY 08/12/14 03/24/20 03/23/20 History Rosuvastatin (Nf) [Crestor] 20 mg PO QHS 08/12/14 10/09/19 03/23/20 History Amlodipine Besylate [Norvasc] 10 mg PO DAILY 30 Days tablet 11/19/14 03/24/20 03/24/20 Rx carvediloL [Coreg] 12.5 mg PO BID #60 tablet 11/19/14 03/24/20 03/24/20 Rx Aspirin [Aspirin BABY CHEW TAB] 81 mg PO QDAY #30 tab.chew 05/17/16 03/24/20 03/24/20 Rx Albuterol Mdi (or & Nicu Only) 2 puff IH QID PRN 09/24/16 03/24/20 03/23/20 History [ProAir HFA Inhaler] Budesoni/Formotero 160-4.5(Nf) 2 puff IH BID 09/24/16 03/24/20 03/23/20 History [Symbicort 160-4.5 (Nf)] Apixaban [Eliquis] 5 mg PO Q12H 08/21/19 03/24/20 03/21/20 History carBAMazepine [TEGretol] 200 mg PO Q12HR 08/21/19 03/24/20 03/24/20 History Diclofenac 1% [Diclofenac 1% 2 gm TP QID #1 tube 07/28/20 Unknown Rx topical gel] HYDROcodone/APAP 5-325 [[place] 1 each PO Q4HR PRN #10 tablet 07/28/20 Unknown Rx 5/325] Mental Status Exam - Vital signs Last Vital Signs Temp 98.5 F 01/18/21 06:18 Pulse 62 01/18/21 06:18 Resp 18 01/18/21 06:18 BP 116/56 01/18/21 06:18 Pulse Ox 95 01/18/21 06:18 Results Result Diagrams: 01/17/21 21:01/17/21 21:28 Abnormal lab results 01/17/21 01/17/21 01/17/21 Range/Units 21:28 21: 21: RBC 3.41 L (3.65-5.03) M/mm3 MCV 98 H (79-97) fl Lymph % (Auto) 37.5 H (13.4-35.0) % [place] % (Auto) 7.7 H (0.0-7.3) % Creatinine 0.4 L (0.6-1.2) mg/dL Glucose 113 H (65-100) mg/dL Salicylates < 0.3 L (2.8-20.0) mg/dL Acetaminophen (10.0-30.0) ug/mL 01/17/21 Range/Units 21:28 RBC (3.65-5.03) M/mm3 MCV (79-97) fl Lymph % (Auto) (13.4-35.0) % [place] % (Auto) (0.0-7.3) % Creatinine (0.6-1.2) mg/dL Glucose (65-100) mg/dL Salicylates (2.8-20.0) mg/dL Acetaminophen 5.0 L (10.0-30.0) ug/mL All other labs normal.
[2021-01-18 11:50] VITALS: BP 120/66
--- NOTE | 2021-01-18 14:39 | Electrocardiograph Report ---
[facility] Test Date: 2021-01-17 Test Time: 22:18:14 Pat Name: RODNEY FAY Department: Room: Gender: F Flexo Operator: JORDIN : 1945 Requested By: LEBRON BROWN Order Number: [id number] Reading MD: Eliecer Richey Measurements Intervals [place] Rate: 60 P: 45 WA: 197 QRS: -32 QRSD: 100 T: 109 QT: 435 QTc: 435 Interpretive Statements Sinus rhythm LVH with secondary repolarization abnormality Left axis deviation No previous ECG available for comparison Electronically Signed On 01-18-2021 14:39:35 EST by Eliecer Richey
== END 2021-01-18 12:30 | disposition home or self-care (01) ==
LOC: ED 20:27
DX: R44.1 Visual hallucinations (principal); R44.0 Auditory hallucinations; I10 Essential (primary) hypertension; Z20.822 Contact with and (suspected) exposure to COVID-19; M19.90 Unspecified osteoarthritis, unspecified site; F32.9 Major depressive disorder, single episode, unspecified; Z88.5 Allergy status to narcotic agent; Z90.710 Acquired absence of both cervix and uterus; Z79.899 Other long term (current) drug therapy
CPT/HCPCS: 36415; 70450; 71045; 80048; 80307; 81001; 85025; 93005; 99285; U0003; 80320; G0480